=== PATIENT | male | born 1940 | race African-American/Black ===

== ENCOUNTER 2017-12-08 19:13 | Inpatient (IN) | payer MEDICARE, BC ==
[~2017-12-08] VITALS: Ht 170.2 cm; Wt 56.7 kg
[~2017-12-08 19:13] MED LIST: ADVAIR 500-501 EACH INH; SPIRIVA18 MCG INH; ZANAFLEX2 M1 ORAL
[2017-12-08 19:40] VITALS: BP 144/67
--- NOTE | 2017-12-08 19:42 | Emergency Room Report ---
History of Present Illness General Chief Complaint: Dyspnea/Respdistress Source: Patient Present Illness HPI Patient presents with complaints of shortness of breath Patient reports that he has a history of asthma However has not had a flareup in November previously Denies any recent travel he started having a mild cough today General weakness Denies any vomiting or diarrhea Denies any pleurisy Patient had some relief with home medication Allergies: Coded Allergies: IODINE (Unverified Allergy, Unknown, 09/07/15) Patient History Past Medical History: see triage record Pertinent Family History: none Reviewed Nursing Documentation: PMH: Agreed; PSxH: Agreed Nursing Documentation-PMH Past Medical History: No History, Except For Hx Cardiac Problems: No Hx Asthma: Yes - bronchitis Hx COPD: Yes Hx Cancer: No Hx Gastrointestinal Problems: No Hx Neurological Problems: No Review of Systems All Other Systems: negative except mentioned in HPI Physical Exam Vital Signs Date Time Temp Pulse Resp B/P (MAP) Pulse Ox O2 Delivery O2 Flow Rate FiO2 12/08/17 19:17 97.7 106 18 147/70 94 Room Air 97.7 Sp02 EP Interpretation: reviewed, normal General Appearance: mild distress - Mildly short of breath Head: normocephalic, atraumatic Eyes: bilateral eye PERRL, bilateral eye EOMI ENT: hearing grossly normal, normal pharynx, TMs + canals normal, uvula midline Neck: full range of motion, supple, no meningismus, no bony tend Respiratory: no respiratory distress, no retraction, no accessory muscle use, crackles, wheezing - Bilaterally Cardiovascular #1: normal peripheral pulses, regular rate, rhythm, no edema, no gallop, no JVD, no murmur Gastrointestinal: normal bowel sounds, non tender, soft, no mass, no organomegaly, non-distended, no guarding, no hernia, no pulsatile mass, no rebound Genitourinary: no CVA tenderness Musculoskeletal: normal inspection Neurologic: oriented x3, responsive, hardwood sawyer III-XII nml as tested, motor strength/ tone normal, sensory intact Psychiatric: mood/affect normal Skin: normal color, no rash, warm/dry, palpation normal Lymphatic: normal inspection, no adenopathy Medical Decision Making Diagnostic Impression: Primary Impression: Dyspnea Additional Impression: COPD (chronic obstructive pulmonary disease) ER Course Patient is a fairly complex patient with multiple differential to consideration including but not limited to cardiac cardiopulmonary and vascular emergencies Patient has done better with breathing treatments X-ray shows some questionable markings bilaterally likely chronic in nature Given the comorbidities and the presentation patient is admitted for further care Labs Test 12/08/17 19:52 White Blood Count 9.0 K/UL (4.8-10.8) Red Blood Count 3.66 M/UL (4.70-6.10) Hemoglobin 11.7 G/DL (14.2-18.0) Hematocrit 33.8 % (42.0-52.0) Mean Corpuscular Volume 92 FL (80-99) Mean Corpuscular Hemoglobin 32.0 PG (27.0-31.0) Mean Corpuscular Hemoglobin Concent 34.6 G/DL (32.0-36.0) Red Cell Distribution Width 12.6 % (11.6-14.8) Platelet Count 237 K/UL (150-450) Mean Platelet Volume 6.5 FL (6.5-10.1) Neutrophils (%) (Auto) 66.7 % (45.0-75.0) Lymphocytes (%) (Auto) 25.8 % (20.0-45.0) Monocytes (%) (Auto) 3.6 % (1.0-10.0) Eosinophils (%) (Auto) 2.7 % (0.0-3.0) Basophils (%) (Auto) 1.2 % (0.0-2.0) EKG Diagnostic Results Rate: normal Rhythm: NSR ST Segments: no acute changes Rhythm Strip Diag. Results EP Interpretation: yes Rate: 67 Rhythm: NSR, no PVC's, no ectopy Chest X-Ray Diagnostic Results Chest X-Ray Diagnostic Results : Chest X-Ray Ordered: Yes # of Views/Limited/Complete: 1 View Indication: Shortness of Breath EP Interpretation: Yes Interpretation: no consolidation, no effusion, other - Bilateral increased markings mild perihilar fullness Impression: Other - Nonspecific bilateral markings Electronically Signed by: Ana August DO Last Vital Signs Date Time Temp Pulse Resp B/P (MAP) Pulse Ox O2 Delivery O2 Flow Rate FiO2 12/08/17 19:17 97.7 106 18 147/70 94 Room Air 97.7 Status: improved Disposition: ADMITTED INPATIENT Condition: Serious Ana August DO Dec 08, 2017 19:42
[2017-12-08] MEDS ORDERED: Ipratropium 0.02% Inh Soln 2.5ml UD HHN ONE (19:45)
[2017-12-08] MEDS ORDERED: Albuterol ud Inhalation HHN ONE (19:45)
[2017-12-08] MEDS ORDERED: Solu-MEDROL 125mg Inj IVP ONE (19:45)
[2017-12-08] MEDS ORDERED: Albuterol ud Inhalation ONE (20:01)
[2017-12-08 20:29] LABS: BASOPHILS % (AUTO) 1.2 % (0.0-2.0); EOSINOPHILS % (AUTO) 2.7 % (0.0-3.0); HEMATOCRIT 33.8 % (42.0-52.0); HEMOGLOBIN 11.7 G/DL (14.2-18.0); LYMPHOCYTES % (AUTO) 25.8 % (20.0-45.0); MEAN CORPUSCULAR VOLUME 92 FL (80-99); MONOCYTES % (AUTO) 3.6 % (1.0-10.0); NEUTROPHILS % (AUTO) 66.7 % (45.0-75.0); PLATELET COUNT 237 K/UL (150-450); RED BLOOD COUNT 3.66 M/UL (4.70-6.10); RED CELL DISTRIBUTION WIDTH 12.6 % (11.6-14.8)
[2017-12-08 20:43] LABS: ANION GAP 11 mmol/L (5-15); BLOOD UREA NITROGEN 20 mg/dL (7-18); CALCIUM 8.9 MG/DL (8.5-10.1); CARBON DIOXIDE 26 MMOL/L (21-32); CHLORIDE 106 MMOL/L (98-107); CREATININE 1.5 MG/DL (0.55-1.30); POTASSIUM 3.4 MMOL/L (3.5-5.1); SODIUM 142 MMOL/L (136-145)
[2017-12-08 20:57] LABS: ALANINE AMINOTRANSFERASE 25 U/L (12-78); ALBUMIN 3.7 G/DL (3.4-5.0); ALBUMIN/GLOBULIN RATIO 1.1 (1.0-2.7); ALKALINE PHOSPHATASE 71 U/L (46-116); ASPARTATE AMINO TRANSFERASE 20 U/L (15-37); BILIRUBIN,TOTAL 0.1 MG/DL (0.2-1.0); CKMB 6.1 NG/ML (0.0-3.6); CREATINE KINASE 500 U/L (26-308)
[2017-12-08] MEDS ORDERED: PROAIR HFA8.5 GM INH (20:59)
[2017-12-08] MEDS ORDERED: ALBUTEROL2.5 MG/3 M INH (20:59)
[2017-12-08] MEDS ORDERED: IPRATROPIU0.2 MG/1 M HHN (20:59)
[2017-12-08] MEDS ORDERED: MONTELUKAST SOD10 MG ORAL (20:59)
[2017-12-08] MEDS ORDERED: IPRAT-ALBUT 0.5-3 ML IH (20:59)
[2017-12-08] MEDS ORDERED: Morphine Sulfate 2mg/ml Inj IVP PRN (21:30)
[2017-12-08] MEDS ORDERED: LORazepam Inj 2mg/ml 1ml IV PRN (21:30)
[2017-12-08] MEDS ORDERED: Promethazine/Codeine 5ml UD ORAL PRN (21:30)
[2017-12-08] MEDS ORDERED: Ketorolac 30mg Inj IV PRN (21:30)
[2017-12-08] MEDS ORDERED: Nitroglycerin Subl 0.4mg tab SL PRN (21:30)
[2017-12-08] MEDS ORDERED: Piperacillin/Tazobactam 2.25 GM in D5W 55 ML IV SCH (22:00)
[2017-12-09] VITALS: BP 137/72
[2017-12-09] MEDS: Heparin 5000 units/ml inj SUBQ SCH ×3 (00:16→20:57)
[2017-12-09] MEDS: Theophylline ER 100mg ORAL SCH ×3 (00:16→20:56)
[2017-12-09] MEDS ORDERED: Influenza Vaccine Quadrivalent 0.5ml IM ONE (01:15)
[2017-12-09] MEDS ORDERED: Pneumococcal Vaccine 25mcg/0.5ml IM ONE (01:15)
[2017-12-09] MEDS: Solu-MEDROL 125mg Inj IV SCH ×4 (02:31→20:00)
[2017-12-09 04:00] VITALS: BP 145/62
[2017-12-09] MEDS: Zoysn 3.37gm in NS 100ML IVPB SCH ×3 (05:25→21:02)
[2017-12-09 08:00] VITALS: BP 118/67
--- NOTE | 2017-12-09 10:14 | Diagnostic Imaging Report ---
Indication: Dyspnea Comparison: 09/21/2015 A single view chest radiograph was obtained. Findings: No definite infiltrate or pulmonary vascular congestion identified. The heart is normal in size. The lungs are hyperexpanded.. The aorta is mildly enlarged consistent with atherosclerotic vascular disease. The bones are osteopenic. Impression: No acute disease. COPD suspected
--- NOTE | 2017-12-09 11:50 | Consultation ---
History of Present Illness General Date patient seen: Dec 09, 2017 Chief Complaint: Dyspnea/Respdistress Present Illness HPI 77 year old male with hx of Emphysema, asthma, CAd, presented to ER by paramedics with complaints of shortness of breath, happened after using some bleach for cleaning up. He has hx of smoking and still smokes 3-4 cigarette a day. Doesn't have any Phlegm or chest pain. Allergies: Coded Allergies: IODINE (Unverified Allergy, Unknown, 09/07/15) Medication History Scheduled Albuterol Sulfate* (Proair Hfa*), 2 PUFFS INH Q6H, (Reported) Fluticasone/Salmeterol (Advair 500-50 Diskus), 1 PUFF INH BID, (Reported) Montelukast Sodium* (Montelukast Sodium*), 10 MG ORAL DAILY, (Reported) Scheduled PRN Albuterol Sulfate* (Albuterol Sulfate Hhn*), 3 ML INH Q4H PRN for Shortness of Breath, (Reported) Ipratropium [place] 0.5MG/2.5ML (Ipratropium [place] 0.5MG/2.5ML), 0.5 MG HHN Q6H PRN for Shortness of Breath, (Reported) Ipratropium/Albuterol Sulfate (Iprat-Albut 0.5-3(2.5) Mg/3 Ml), 3 ML IH Q6HR PRN for Shortness of Breath, (Reported) Discontinued Medications Tiotropium [place]* (Spiriva*), 1 PUFF INH DAILY, (Reported) Discontinued Reason: discontinued med Tizanidine Hcl (Zanaflex), 2 MG ORAL Q8HR PRN Discontinued Reason: MD discontinued med Patient History Healthcare decision maker Resuscitation status Full Code Advanced Directive on File Past Medical/Surgical History Past Medical/Surgical History: (1) COPD (chronic obstructive pulmonary disease) (2) History of smoking (3) Pulmonary nodule Review of Systems Respiratory: Reports: shortness of breath, wheezing All Other Systems: negative except mentioned in HPI Physical Exam General Appearance: WD/WN, no apparent distress Lines, tubes and drains: peripheral HEENT: normocephalic, atraumatic Neck: non-tender, normal alignment Respiratory/Chest: chest wall non-tender, lungs clear Cardiovascular/Chest: normal peripheral pulses, normal rate Abdomen: normal bowel sounds, non tender Genitourinary/Rectal: normal genital exam, normal rectal exam Extremities: normal range of motion, non-tender, normal capillary refill Skin Exam: normal pigmentation Neurologic: marina porter II-XII grossly normal Last 24 Hour Vital Signs Date Time Temp Pulse Resp B/P (MAP) Pulse Ox O2 Delivery O2 Flow Rate FiO2 12/09/17 09:00 Room Air 12/09/17 08:00 92 12/09/17 08:00 97.6 92 18 118/67 (84) 98 97.6 12/09/17 04:00 97.6 83 17 145/62 (89) 95 97.6 12/09/17 04:00 88 12/09/17 01:10 98.0 88 130/60 12/09/17 01:05 Room Air 12/09/17 00:00 97.7 93 16 137/72 (93) 96 97.7 12/09/17 00:00 93 12/08/17 20:39 92 22 99 Room Air 21 12/08/17 20:18 88 18 98 Room Air 21 12/08/17 20:17 88 18 Room Air 21 12/08/17 19:40 98 16 Room Air 98 12/08/17 19:40 98.2 98 16 144/67 98 Room Air 98.2 12/08/17 19:17 97.7 106 18 147/70 94 Room Air 97.7 Intake and Output 12/08/17 12/09/17 19:00 07:00 Intake Total 100 ml Balance 100 ml Intake Oral 100 ml Laboratory Tests Test 12/08/17 19:52 White Blood Count 9.0 K/UL (4.8-10.8) Red Blood Count 3.66 M/UL (4.70-6.10) L Hemoglobin 11.7 G/DL (14.2-18.0) L Hematocrit 33.8 % (42.0-52.0) L Mean Corpuscular Volume 92 FL (80-99) Mean Corpuscular Hemoglobin 32.0 PG (27.0-31.0) H Mean Corpuscular Hemoglobin Concent 34.6 G/DL (32.0-36.0) Red Cell Distribution Width 12.6 % (11.6-14.8) Platelet Count 237 K/UL (150-450) Mean Platelet Volume 6.5 FL (6.5-10.1) Neutrophils (%) (Auto) 66.7 % (45.0-75.0) Lymphocytes (%) (Auto) 25.8 % (20.0-45.0) Monocytes (%) (Auto) 3.6 % (1.0-10.0) Eosinophils (%) (Auto) 2.7 % (0.0-3.0) Basophils (%) (Auto) 1.2 % (0.0-2.0) Sodium Level 142 MMOL/L (136-145) Potassium Level 3.4 MMOL/L (3.5-5.1) L Chloride Level 106 MMOL/L (98-107) Carbon Dioxide Level 26 MMOL/L (21-32) Anion Gap 11 mmol/L (5-15) Blood Urea Nitrogen 20 mg/dL (7-18) H Creatinine 1.5 MG/DL (0.55-1.30) H Estimat Glomerular Filtration Rate mL/min (>60) Glucose Level 135 MG/DL (74-106) H Calcium Level 8.9 MG/DL (8.5-10.1) Total Bilirubin 0.1 MG/DL (0.2-1.0) L Aspartate Amino Transf (AST/SGOT) 20 U/L (15-37) Alanine Aminotransferase (ALT/SGPT) 25 U/L (12-78) Alkaline Phosphatase 71 U/L (46-116) Total Creatine Kinase 500 U/L (26-308) H Creatine Kinase MB 6.1 NG/ML (0.0-3.6) H Creatine Kinase MB Relative Index 1.2 Troponin I 0.000 ng/mL (0.000-0.056) Pro-B-Type Natriuretic Peptide 93 pg/mL (0-125) Total Protein 7.1 G/DL (6.4-8.2) Albumin 3.7 G/DL (3.4-5.0) Globulin 3.4 g/dL Albumin/Globulin Ratio 1.1 (1.0-2.7) Lipase 175 U/L (73-393) Height (Feet): 5 Height (Inches): 7.00 Weight (Pounds): 125 Medications Current Medications Medications (Trade) Dose Ordered Sig/Gregory Route PRN Reason Start Time Stop Time Status Last Admin Dose Admin Albuterol/ Ipratropium (Albuterol/ Ipratropium) 3 ml EVERY 4 HOURS PRN HHN dyspnea 12/08/17 21:30 12/13/17 21:29 Dextrose (Dextrose 50%) 25 ml Q30M PRN IV Hypoglycemia 12/08/17 21:30 01/07/18 21:29 Dextrose (Dextrose 50%) 50 ml Q30M PRN IV Hypoglycemia 12/08/17 21:30 01/07/18 21:29 Heparin Sodium (Porcine) (Heparin 5000 units/ml) 5,000 units EVERY 12 HOURS SUBQ 12/08/17 22:15 01/07/18 22:14 12/09/17 08:01 Lorazepam (Ativan 2mg/ml 1ml) 0.5 mg Q4H PRN IV For Anxiety 12/08/17 21:30 12/15/17 21:29 Methylprednisolone Sodium Succinate (Solu-MEDROL) 60 mg Q6H IV 12/09/17 02:00 01/08/18 01:59 12/09/17 07:53 Nitroglycerin (Ntg) 0.4 mg Q5M X 3 DOSES PRN SL Prn Chest Pain 12/08/17 21:30 01/07/18 21:29 Ondansetron HCl (Zofran) 4 mg Q6H PRN IVP Nausea & Vomiting 12/08/17 21:30 01/07/18 21:29 Piperacillin Sod/ Tazobactam Sod 3.375 gm/Sodium Chloride 110 ml @ 27.5 mls/hr EVERY 8 HOURS IVPB 12/08/17 22:30 12/13/17 22:29 12/09/17 05:25 Potassium Chloride (K-Dur) 40 meq ONCE ORAL 12/09/17 11:42 12/09/17 12:42 Promethazine HCl/ Codeine (Phenergan with Codeine) 5 ml Q6H PRN ORAL cough 12/08/17 21:30 01/07/18 21:29 Temazepam (Restoril) 15 mg HSPRN PRN ORAL Insomnia 12/08/17 21:30 12/15/17 21:29 12/09/17 00:17 Theophylline (Luis-Dur) 100 mg EVERY 12 HOURS ORAL 12/08/17 22:30 01/07/18 22:29 12/09/17 07:59 Assessment/Plan Problem List: (1) COPD with acute exacerbation ICD Codes: J44.1 - Chronic obstructive pulmonary disease with (acute) exacerbation SNOMED: 195961467 (2) History of smoking ICD Codes: Z87.891 - Personal history of nicotine dependence SNOMED: 80184964674654089 (3) Pulmonary nodule ICD Codes: R91.1 - Solitary pulmonary nodule SNOMED: 530018254 (4) Allergy to iodine ICD Codes: Z88.8 - Allergy status to other drugs, medicaments and biological substances status SNOMED: 276695917 Assessment/Plan respiratory treatment check sputum short course of steroids CT of chest to f/u on previously seen pulmonary nodule titrate fio2 to sat of 92% dvt prophylaxis. Antitussives. symptomatic treatment. Nirali Sands MD Dec 09, 2017 11:50
[2017-12-09 12:00] VITALS: BP 119/68
[2017-12-09 12:35] LABS: APPEARANCE,URINE CLEAR; BILIRUBIN, URINE NEGATIVE (NEGATIVE); COLOR,URINE PALE YELLOW; GLUCOSE, URINE (UA) 1+ (NEGATIVE); KETONES,URINE NEGATIVE (NEGATIVE); LEUKOCYTE ESTERASE ,URINE NEGATIVE (NEGATIVE); NITRITE,URINE NEGATIVE (NEGATIVE); PH,URINE 5 (4.5-8.0); PROTEIN,URINE NEGATIVE (NEGATIVE); UROBILINOGEN,URINE NORMAL MG/DL (0.0-1.0)
[2017-12-09 12:55] LABS: CREATINE KINASE 443 U/L (26-308)
[2017-12-09 16:00] VITALS: BP 117/74
[2017-12-09] MEDS: Albuterol/Ipratropium 3ml neb HHN PRN ×2 (17:46→21:39)
--- NOTE | 2017-12-09 19:01 | History & Physical ---
History and Physical History & Physicial Dictated for Int Med-Dr Silva no. [id number]. Blake Collier MD Dec 09, 2017 19:01
[2017-12-09 20:00] VITALS: BP 121/63
--- NOTE | 2017-12-09 22:18 | Consultation ---
History of Present Illness General Date patient seen: Dec 09, 2017 Chief Complaint: Dyspnea/Respdistress Present Illness HPI the pt is a 77 yo male with hx of mmp, smoking, anxiety, asthma and cad. the pt pw anxiety, fatigue, shortness of breath and insomnia. the pt has low grade depression. the pt has no si/hi. Allergies: Coded Allergies: IODINE (Unverified Allergy, Unknown, 09/07/15) Medication History Scheduled Albuterol Sulfate* (Proair Hfa*), 2 PUFFS INH Q6H, (Reported) Fluticasone/Salmeterol (Advair 500-50 Diskus), 1 PUFF INH BID, (Reported) Montelukast Sodium* (Montelukast Sodium*), 10 MG ORAL DAILY, (Reported) Scheduled PRN Albuterol Sulfate* (Albuterol Sulfate Hhn*), 3 ML INH Q4H PRN for Shortness of Breath, (Reported) Ipratropium [place] 0.5MG/2.5ML (Ipratropium [place] 0.5MG/2.5ML), 0.5 MG HHN Q6H PRN for Shortness of Breath, (Reported) Ipratropium/Albuterol Sulfate (Iprat-Albut 0.5-3(2.5) Mg/3 Ml), 3 ML IH Q6HR PRN for Shortness of Breath, (Reported) Discontinued Medications Tiotropium [place]* (Spiriva*), 1 PUFF INH DAILY, (Reported) Discontinued Reason: discontinued med Tizanidine Hcl (Zanaflex), 2 MG ORAL Q8HR PRN Discontinued Reason: MD discontinued med Patient History Limited by: medical condition History Provided By: Patient, Medical Record Healthcare decision maker Resuscitation status Full Code Advanced Directive on File Past Medical/Surgical History Past Medical/Surgical History: (1) COPD with acute exacerbation (2) Allergy to iodine (3) Dizziness (4) Allergic rhinitis (5) Pulmonary nodule (6) History of smoking (7) COPD (chronic obstructive pulmonary disease) Review of Systems Psychiatric: Reports: prior hx, anxiety Physical Exam General Appearance: no apparent distress, alert Neurologic: oriented x 3, responsive, depressed affect Last 24 Hour Vital Signs Date Time Temp Pulse Resp B/P (MAP) Pulse Ox O2 Delivery O2 Flow Rate FiO2 10/15/18 21:50 70 18 100 Room Air 21 12/09/17 21:39 86 18 98 Room Air 21 12/09/17 20:45 85 18 Room Air 21 12/09/17 17:46 80 16 98 Room Air 21 12/09/17 17:46 80 16 98 Room Air 21 12/09/17 16:00 97.5 79 18 117/74 (88) 96 97.5 12/09/17 16:00 67 12/09/17 12:00 84 12/09/17 12:00 97.8 83 18 119/68 (85) 96 97.8 12/09/17 09:00 Room Air 12/09/17 08:00 92 12/09/17 08:00 97.6 92 18 118/67 (84) 98 97.6 12/09/17 04:00 97.6 83 17 145/62 (89) 95 97.6 12/09/17 04:00 88 12/09/17 01:10 98.0 88 130/60 12/09/17 01:05 Room Air 12/09/17 00:00 97.7 93 16 137/72 (93) 96 97.7 12/09/17 00:00 93 Intake and Output 12/08/17 12/09/17 19:00 07:00 Intake Total 100 ml Balance 100 ml Intake Oral 100 ml Laboratory Tests Test 12/09/17 11:22 12/09/17 12:20 Urine Color Pale yellow Urine Appearance Clear Urine pH 5 (4.5-8.0) Urine Specific [place] 1.010 (1.005-1.035) Urine Protein Negative (NEGATIVE) Urine Glucose (UA) 1+ (NEGATIVE) H Urine Ketones Negative (NEGATIVE) Urine Blood 2+ (NEGATIVE) H Urine Nitrite Negative (NEGATIVE) Urine Bilirubin Negative (NEGATIVE) Urine Urobilinogen Normal MG/DL (0.0-1.0) Urine Leukocyte Esterase Negative (NEGATIVE) Urine RBC 2-4 /HPF (0 - 0) H Urine WBC 0 /HPF (0 - 0) Urine Squamous Epithelial Cells Occasional /LPF Urine Bacteria Occasional /HPF (NONE) Urine Eosinophils None seen (NONE SEEN) Urine Random Sodium 125 mmol/L (20-110) H Urine Potassium Timed 86 mmol/L (12-62) H Uric Acid 3.9 MG/DL (2.6-7.2) Total Creatine Kinase 443 U/L (26-308) H Microbiology Date/Time Source Procedure Growth Status 12/09/17 15:10 Nasal Nares Influenza Types A,B Antigen (BRENT) - Final Complete Height (Feet): 5 Height (Inches): 7.00 Weight (Pounds): 125 Medications Current Medications Medications (Trade) Dose Ordered Sig/Gregory Route PRN Reason Start Time Stop Time Status Last Admin Dose Admin Albuterol/ Ipratropium (Albuterol/ Ipratropium) 3 ml EVERY 4 HOURS PRN HHN dyspnea 12/08/17 21:30 12/13/17 21:29 12/09/17 21:39 Dextrose (Dextrose 50%) 25 ml Q30M PRN IV Hypoglycemia 12/08/17 21:30 01/07/18 21:29 Dextrose (Dextrose 50%) 50 ml Q30M PRN IV Hypoglycemia 12/08/17 21:30 01/07/18 21:29 Heparin Sodium (Porcine) (Heparin 5000 units/ml) 5,000 units EVERY 12 HOURS SUBQ 12/08/17 22:15 01/07/18 22:14 12/09/17 20:57 Lorazepam (Ativan 2mg/ml 1ml) 0.5 mg Q4H PRN IV For Anxiety 12/08/17 21:30 12/15/17 21:29 Methylprednisolone Sodium Succinate (Solu-MEDROL) 60 mg Q6H IV 12/09/17 02:00 01/08/18 01:59 12/09/17 20:00 Nitroglycerin (Ntg) 0.4 mg Q5M X 3 DOSES PRN SL Prn Chest Pain 12/08/17 21:30 01/07/18 21:29 Ondansetron HCl (Zofran) 4 mg Q6H PRN IVP Nausea & Vomiting 12/08/17 21:30 01/07/18 21:29 Piperacillin Sod/ Tazobactam Sod 3.375 gm/Sodium Chloride 110 ml @ 27.5 mls/hr EVERY 8 HOURS IVPB 12/08/17 22:30 12/13/17 22:29 12/09/17 21:02 Promethazine HCl/ Codeine (Phenergan with Codeine) 5 ml Q6H PRN ORAL cough 12/08/17 21:30 01/07/18 21:29 Temazepam (Restoril) 15 mg HSPRN PRN ORAL Insomnia 12/08/17 21:30 12/15/17 21:29 12/09/17 21:16 Theophylline (Luis-Dur) 100 mg EVERY 12 HOURS ORAL 12/08/17 22:30 01/07/18 22:29 12/09/17 20:56 Assessment/Plan Problem List: (1) Anxiety disorder ICD Codes: F41.9 - Anxiety disorder, unspecified SNOMED: 515102305 Status: stable Assessment/Plan ativan prn provided ro/Brandin Beckford MD Dec 09, 2017 22:18
--- NOTE | 2017-12-09 23:15 | History and Physical Report ---
DATE OF ADMISSION: 12/08/2017 CHIEF COMPLAINT: The patient is a 77-year-old male with history of chronic obstructive pulmonary disease, who presents with chief complaint of shortness of breath. HISTORY OF PRESENT ILLNESS: The patient has a history of chronic obstructive pulmonary disease. 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 The patient was using bleach on Saturday, November the 2017. The patient used bleach again on Saturday. The patient began to experience cough. Cough is productive of yellowish phlegm. The patient denies fevers or chills. The patient became increasingly short of breath. The patient presented to [facility]. The patient is admitted for acute exacerbation of chronic obstructive pulmonary disease. REVIEW OF SYSTEMS: CONSTITUTIONAL: The patient denies weight loss or weight gain. The patient denies fevers or chills. HEENT: The patient denies ear or throat pain. The patient denies headache. CARDIOVASCULAR: The patient denies palpitations or chest pain. CHEST: The patient complains of cough as above. The patient complains of shortness of breath as above. The patient denies wheezes. ABDOMEN: The patient denies nausea, vomiting, diarrhea, or constipation. GENITOURINARY: The patient denies dysuria or increased frequency of urination. NEUROMUSCULAR: The patient denies seizures or generalized weakness. PAST MEDICAL HISTORY: Significant for: 1. Chronic obstructive pulmonary disease. 2. Allergic rhinitis. PAST SURGICAL HISTORY: The patient denies. CURRENT MEDICATIONS: 1. Albuterol 2.5 mg nebulized q.6 h. as needed. 2. ProAir metered-dose inhaler two puffs p.o. q.i.d. as needed. 3. Advair 500/50 one puff p.o. twice daily. 4. Atrovent 0.5 mg nebulized q.6 h. p.r.n. 5. Singulair 10 mg p.o. nightly. ALLERGIES: To iodine and contrast dye. SOCIAL HISTORY: The patient is single and is . The patient admits to tobacco use of one-quarter pack per day. The patient denies alcohol use. PHYSICAL EXAMINATION: VITAL SIGNS: Temperature 97.6, respirations 17, pulse 88, and blood pressure 145/62. GENERAL: The patient is a well-developed and well-nourished male, in no apparent distress. HEENT: Eyes, pupils are equal and responsive to light and accommodation. Extraocular movements are intact. NECK: Supple without lymphadenopathy. CHEST: Few diffuse wheezes at bilateral bases. Otherwise, without wheezes or rales. CARDIOVASCULAR: Regular rate. S1 and S2 normal without murmurs, rubs, or gallops. ABDOMEN: Soft, nontender, and nondistended. Positive bowel sounds. No evidence of hepatosplenomegaly. Currently, no rebound or guarding noted. EXTREMITIES: Negative for clubbing, cyanosis, or edema. RECTAL/GENITAL: Refused. NEUROLOGICAL: Cranial nerves II through XII are grossly intact without focal deficits. Motor strength is 5/5 bilaterally. Deep tendon reflexes are 2+ plantar. DIAGNOSTIC AND LABORATORY DATA: Chest x-ray revealed increased lung volume consistent with chronic obstructive pulmonary disease. WBC 9.2, hemoglobin 11.7, hematocrit 33.8, and platelets . Sodium 142, potassium 3.4, chloride 106, CO2 26, BUN 20, and creatinine 1.5. Glucose 135. BNP normal at 93. Troponin normal at 0.0. ASSESSMENT: This is a 77-year-old male with: 1. Acute exacerbation of chronic obstructive pulmonary disease. 2. Shortness of breath. 3. Allergic rhinitis. TREATMENT: Chronic obstructive pulmonary disease, acute exacerbation. A Pulmonary consultation has been obtained with Dr. Nirali Sands. The patient has been started empirically on intravenous Solu-Medrol. The patient has also been started on Zosyn. We will follow recommendations of Pulmonary. Blake Collier M.D. DR: RD JOB#: [id number] CC:
[2017-12-09] MEDS ORDERED: Nitroglycerin Subl 0.4mg tab SL PRN (23:30)
[2017-12-10] VITALS: BP 119/55
[2017-12-10] MEDS ORDERED: Albuterol/Ipratropium 3ml neb HHN PRN (01:00)
[2017-12-10] MEDS ORDERED: LORazepam Inj 2mg/ml 1ml IV PRN (01:30)
[2017-12-10] MEDS: Solu-MEDROL 125mg Inj IV SCH ×2 (01:37→07:52)
[2017-12-10] MEDS ORDERED: Promethazine/Codeine 5ml UD ORAL PRN (03:30)
[2017-12-10 04:14] VITALS: BP 125/56
[2017-12-10] MEDS ORDERED: Piperacillin/Tazobactam 3.375 GM in NS 110 ML IVPB SCH (06:00)
[2017-12-10 07:23] LABS: HEMOGLOBIN 11.8 G/DL (14.2-18.0); MEAN CORPUSCULAR VOLUME 92 FL (80-99); PLATELET COUNT 243 K/UL (150-450); RED BLOOD COUNT 3.81 M/UL (4.70-6.10); RED CELL DISTRIBUTION WIDTH 13.1 % (11.6-14.8); WHITE BLOOD COUNT 13.6 K/UL (4.8-10.8)
[2017-12-10 07:43] LABS: ANION GAP 10 mmol/L (5-15); BLOOD UREA NITROGEN 25 mg/dL (7-18); CALCIUM 9.1 MG/DL (8.5-10.1); CARBON DIOXIDE 25 MMOL/L (21-32); CHLORIDE 105 MMOL/L (98-107); CREATININE 1.4 MG/DL (0.55-1.30); POTASSIUM 4.5 MMOL/L (3.5-5.1); SODIUM 140 MMOL/L (136-145)
[2017-12-10 08:00] VITALS: BP 120/62
[2017-12-10] MEDS ORDERED: Heparin 5000 units/ml inj SUBQ SCH (09:00)
[2017-12-10] MEDS ORDERED: Theophylline ER 100mg ORAL SCH (09:00)
--- NOTE | 2017-12-10 11:49 | Pulmonology Progress Note ---
Assessment/Plan Problems: (1) COPD with acute exacerbation (2) History of smoking (3) Pulmonary nodule (4) Allergy to iodine Assessment/Plan improving pt wants to go home repeat CT of chest showed only scarring in upper lobes/ d/w dr. Benites close f/u with Dr. Ricardo hernández Subjective ROS Limited/Unobtainable: No Interval Events: pt wants to go home Constitutional: Reports: no symptoms Allergies: Coded Allergies: IODINE (Unverified Allergy, Unknown, 09/07/15) Objective Last 24 Hour Vital Signs Date Time Temp Pulse Resp B/P (MAP) Pulse Ox O2 Delivery O2 Flow Rate FiO2 12/10/17 08:03 91 18 Room Air 21 12/10/17 08:00 98.0 91 20 120/62 (81) 100 98.0 12/10/17 07:39 Room Air 12/10/17 04:14 97.6 81 16 125/56 (79) 98 97.6 12/10/17 00:00 97.7 95 17 119/55 (76) 98 97.7 12/09/17 21:50 70 18 100 Room Air 21 12/09/17 21:39 86 18 98 Room Air 21 12/09/17 21:00 Room Air 12/09/17 20:45 85 18 Room Air 21 12/09/17 20:00 98.5 100 18 121/63 (82) 95 98.5 12/09/17 20:00 91 12/09/17 17:46 80 16 98 Room Air 21 12/09/17 17:46 80 16 98 Room Air 21 12/09/17 16:00 97.5 79 18 117/74 (88) 96 97.5 12/09/17 16:00 67 12/09/17 12:00 84 12/09/17 12:00 97.8 83 18 119/68 (85) 96 97.8 Intake and Output 12/09/17 12/10/17 19:00 07:00 Intake Total 470.0 ml 950.0 ml Output Total 250 ml Balance 220.0 ml 950.0 ml Intake Oral 360 ml 840 ml IV Total 110.0 ml 110.0 ml Output Urine Total 250 ml # Voids 2 3 # Bowel Movements 1 1 General Appearance: WD/WN HEENT: normocephalic, atraumatic Respiratory/Chest: chest wall non-tender, lungs clear Cardiovascular: normal peripheral pulses, normal rate Abdomen: normal bowel sounds, soft, non tender Genitourinary: normal external genitalia Extremities: no cyanosis 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, no motor/sensory deficits Lymphatic: no neck adenopathy Microbiology Date/Time Source Procedure Growth Status 12/09/17 15:10 Nasal Nares Influenza Types A,B Antigen (BRENT) - Final Complete Laboratory Tests 12/09/17 12:20: Uric Acid 3.9, Total Creatine Kinase 443H 12/10/17 06:30: White Blood Count 13.6#H, Red Blood Count 3.81L, Hemoglobin 11.8L, Hematocrit 35.0L, Mean Corpuscular Volume 92, Mean Corpuscular Hemoglobin 31.1H, Mean Corpuscular Hemoglobin Concent 33.8, Red Cell Distribution Width 13.1, Platelet Count 243, Mean Platelet Volume 7.0, Neutrophils (%) (Auto) , Lymphocytes (%) ( Auto) , Monocytes (%) (Auto) , Eosinophils (%) (Auto) , Basophils (%) (Auto) , Differential Total Cells Counted 100, Neutrophils % (Manual) 87H, Lymphocytes % (Manual) 10L, Monocytes % (Manual) 3, Eosinophils % (Manual) 0, Basophils % ( Manual) 0, Band Neutrophils 0, Platelet Estimate Adequate, Platelet Morphology Normal, Red Blood Cell Morphology Normal, Sodium Level 140, Potassium Level 4.5 , Chloride Level 105, Carbon Dioxide Level 25, Anion Gap 10, Blood Urea Nitrogen 25H, Creatinine 1.4H, Estimat Glomerular Filtration Rate , Glucose Level 145H, Calcium Level 9.1 Nirali Sands MD Dec 10, 2017 11:49
--- NOTE | 2017-12-11 08:50 | Cardiology Report ---
APPROVED REPORT EKG Measurement Heart [id number] Normal sinus rhythm Possible Left atrial enlargement Septal infarct, age undetermined Abnormal ECG
--- NOTE | 2017-12-11 13:28 | Discharge Summary ---
Discharge Summary Discharge Summary _ DATE OF ADMISSION: 12/08/2017 DATE OF DISCHARGE: 12/10/2017 REASON FOR ADMISSION: 77 years old male with past medical history of COPD, allergic rhinitis, former smoker, presented with chief complaint of shortness of breath , started after he was cleaning with bleach. Upon evaluation vital signs were stable. Pulse oximetry was stable on room air. Chest x-ray revealed evidence of COPD, but no acute cardiopulmonary pathology. Laboratory workup revealed no leukocytosis, hemoglobin 11.7 , hematocrit 33.8 . Troponin negative ,proBNP 93 . Potassium 3.4. BUN 20 creatinine 1.5. EKG revealed normal sinus rhythm, no acute ischemic changes. Patient admitted with diagnoses of COPD with acute exacerbation. CONSULTANTS: pulmonary Dr. Sands [facility] COURSE: Patient admitted. Supplemental oxygen was on board as needed to keep pulse oximetry above 92%. Pulse oximetry remained stable on room air. Pulmonary toilet with bronchodilator provided around the clock and as needed. Patient started on short course of steroids. Empiric antibiotic provided . Sputum culture was negative. Influenza screen test was negative . Antitussive provided as needed. DVT prophylaxis provided. CT of the chest was done to follow-up on pulmonary nodules, seen on previous imaging. CT of the chest revealed only scarring in the upper lobes. Patient was counseled to continue abstinence from smoking. Patient was counseled on compliance with medication regimen . Electrolytes and renal parameters were closely monitored, electrolytes corrected , namely potassium, nephrotoxic were avoided. Patient was stable for discharge home . FINAL DIAGNOSES: COPD with acute exacerbation Pulmonary nodule History of smoking Allergic rhinitis Allergy to iodine DISCHARGE MEDICATIONS: See Medication Reconciliation list. DISCHARGE INSTRUCTIONS: Patient was discharged home Follow up with primary care provider in one week. I have been assigned to dictate discharge summary for this account. I was not involved in the patient's management. Daisy Martini NP Dec 11, 2017 13:28
== END 2017-12-10 10:18 | disposition home or self-care (01) | DRG 192 ==
LOC: EMR 21:05 → 2E 21:07 → EDBEDREQ 21:24 → 3E 12-09 23:22
DX: J44.1 Chronic obstructive pulmonary disease with (acute) exacerbation (principal); R91.1 Solitary pulmonary nodule; J30.9 Allergic rhinitis, unspecified; Z91.041 Radiographic dye allergy status; Z88.8 Allergy status to other drugs, medicaments and biological substances; I25.10 Atherosclerotic heart disease of native coronary artery without angina pectoris; F41.9 Anxiety disorder, unspecified; Z87.891 Personal history of nicotine dependence
CPT/HCPCS: 36415; 71045; 71250; 80048; 80053; 81001; 82550; 82553; 83690; 83880; 84133; 84300; 84484; 84550; 85007; 85025; 86710; 87070; 87205; 89050; 93005; 94640; 94664; 96374; 99285; J7620; J8499

== ENCOUNTER 2018-09-18 07:22 | Inpatient (IN) | payer MEDICARE, BC ==
[~2018-09-18] VITALS: Ht 172.7 cm; Wt 61.2 kg
[~2018-09-18 07:22] MED LIST changes: +ALBUTEROL2.5 MG/3 M INH; +IPRAT-ALBUT 0.5-3 ML IH; +IPRATROPIU0.2 MG/1 M HHN; +MONTELUKAST SOD10 MG ORAL; +PREDNISONE20 MG ORAL; +PROAIR HFA8.5 GM INH
[2018-09-18 07:37] VITALS: BP 125/57
--- NOTE | 2018-09-18 07:39 | NUR ---
ED Nurse Note: PT FROM HOME CAME IN DUE TO LEFT SIDE ABD PAIN THAT RADIATES TO HIS LEFT LATERAL RIB AREA SINCE SATURDAY. DENIES TRAUMA/INJURY. PT STATE STHE PAIN IS WORSE WHEN HE MOVES OR COUGHS. AAO X4, AMBULATORY WITH NON LABORED BREATHING. VSS.
--- NOTE | 2018-09-18 08:12 | Emergency Room Report ---
History of Present Illness General Chief Complaint: Pain Source: Patient Present Illness HPI 28-year-old male with history of COPD presents with left chest wall and flank pain that started a few days ago, is worse when he moves, he denies shortness of breath, hemoptysis, does report mild cough denies leg pain, recent travel, syncope, abdominal pain, urinary symptoms, vomiting, diarrhea, has tried over- the-counter medications with partial relief, reports its moderate achy pain worse with certain movements. Allergies: Coded Allergies: IODINE (Unverified Allergy, Unknown, 09/07/15) Patient History Past Medical History: see triage record Reviewed Nursing Documentation: PMH: Agreed; PSxH: Agreed Nursing Documentation-PMH Past Medical History: No History, Except For Hx Cardiac Problems: No Hx Hypertension: No Hx Pacemaker: No Hx Asthma: Yes Hx COPD: Yes Hx Diabetes: No Hx Cancer: No Hx Gastrointestinal Problems: No Hx Dialysis: No History Of Psychiatric Problem: No Hx Neurological Problems: No Hx Cerebrovascular Accident: No Hx Seizures: No Review of Systems All Other Systems: negative except mentioned in HPI Physical Exam Vital Signs Date Time Temp Pulse Resp B/P (MAP) Pulse Ox O2 Delivery O2 Flow Rate FiO2 09/18/18 07:35 98.2 83 16 120/60 (80) 95 Room Air Sp02 EP Interpretation: reviewed, normal General Appearance: no apparent distress, alert, non-toxic Head: normocephalic Eyes: bilateral eye normal inspection, bilateral eye PERRL, bilateral eye EOMI ENT: normal ENT inspection, hearing grossly normal, normal pharynx, no angioedema, normal voice, moist mucus membranes Neck: normal inspection, full range of motion, supple, supple/symm/no masses Respiratory: chest non-tender, lungs clear, normal breath sounds, chest symmetrical, palpation of chest normal Cardiovascular #1: normal peripheral pulses, regular rate, rhythm Cardiovascular #2: 2+ radial (R), 2+ radial (L) Gastrointestinal: normal inspection, non tender, soft, no mass, no guarding, no rebound Rectal: deferred Genitourinary: normal inspection, no CVA tenderness Musculoskeletal: back normal, gait/station normal, normal range of motion, non- tender, no calf tenderness, Sher's Sign negative Neurologic: alert, responsive, 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 as tested, motor strength/tone normal, sensory intact, speech normal Psychiatric: judgement/insight normal, memory normal, mood/affect normal Lymphatic: no adenopathy Medical Decision Making Diagnostic Impression: Primary Impression: Chest pain ER Course Patient's troponin is 0.17, this is the indeterminate range, not indicative of [place] but not normal, his creatinine is elevated at 1.4 as well, chest x-ray unremarkable, EKG unremarkable, I have low suspicion for dissection or pulmonary embolism, and will admit patient after giving him aspirin, diagnosis of chest pain, will need admission for further evaluation and without [place] with trending troponins, echo, possible stress test. Patient given asa. EKG Diagnostic Results EKG Time: 07:28 EP Interpretation: 77 Rate: normal Rhythm: NSR ST Segments: no acute changes Rhythm Strip Diag. Results Rhythm Strip Time: 08:12 EP Interpretation: yes Rate: 77 Rhythm: NSR, no PVC's, no ectopy Chest X-Ray Diagnostic Results Chest X-Ray Diagnostic Results : Chest X-Ray Ordered: Yes # of Views/Limited/Complete: 2 View Indication: Chest Pain EP Interpretation: Yes Interpretation: no consolidation, no effusion, no pneumothorax, no acute cardiopulmonary disease Impression: No acute disease Electronically Signed by: Philippe Duvall MD CT/MRI/US Diagnostic Results CT/MRI/US Diagnostic Results : Imaging Test Ordered: ct abd/pelvis Impression L inguinal hernia, no obstruction Last Vital Signs Date Time Temp Pulse Resp B/P (MAP) Pulse Ox O2 Delivery O2 Flow Rate FiO2 09/18/18 07:37 97.0 73 20 125/57 100 Room Air Disposition: ADMITTED INPATIENT Condition: Stable PHILIPPE DUVALL M.D Sep 18, 2018 08:12
[2018-09-18] MEDS ORDERED: Cyclobenzaprine 10mg Tab ORAL ONE (08:15)
--- NOTE | 2018-09-18 08:20 | NUR ---
ED Nurse Note: COLLECTED BLOOD/URINE THEN SENT.
[2018-09-18 08:37] LABS: APPEARANCE,URINE CLEAR; BILIRUBIN, URINE NEGATIVE (NEGATIVE); COLOR,URINE PALE YELLOW; GLUCOSE, URINE (UA) NEGATIVE (NEGATIVE); KETONES,URINE NEGATIVE (NEGATIVE); LEUKOCYTE ESTERASE ,URINE NEGATIVE (NEGATIVE); NITRITE,URINE NEGATIVE (NEGATIVE); PH,URINE 5 (4.5-8.0); PROTEIN,URINE 2+ (NEGATIVE); UROBILINOGEN,URINE NORMAL MG/DL (0.0-1.0)
[2018-09-18 08:40] LABS: BASOPHILS % (AUTO) 1.5 % (0.0-2.0); EOSINOPHILS % (AUTO) 2.7 % (0.0-3.0); HEMATOCRIT 36.5 % (42.0-52.0); HEMOGLOBIN 12.1 G/DL (14.2-18.0); LYMPHOCYTES % (AUTO) 21.8 % (20.0-45.0); MEAN CORPUSCULAR VOLUME 95 FL (80-99); MONOCYTES % (AUTO) 5.6 % (1.0-10.0); NEUTROPHILS % (AUTO) 68.4 % (45.0-75.0); PLATELET COUNT 269 K/UL (150-450); RED BLOOD COUNT 3.84 M/UL (4.70-6.10); RED CELL DISTRIBUTION WIDTH 13.3 % (11.6-14.8); WHITE BLOOD COUNT 7.2 K/UL (4.8-10.8)
[2018-09-18 08:46] LABS: ANION GAP 10 mmol/L (5-15); BLOOD UREA NITROGEN 12 mg/dL (7-18); CALCIUM 9.4 MG/DL (8.5-10.1); CARBON DIOXIDE 27 MMOL/L (21-32); CHLORIDE 110 MMOL/L (98-107); CREATININE 1.4 MG/DL (0.55-1.30); POTASSIUM 3.8 MMOL/L (3.5-5.1); SODIUM 147 MMOL/L (136-145)
--- NOTE | 2018-09-18 08:49 | NUR ---
ED Nurse Note: PT TAKEN DOWN FOR CXR.
[2018-09-18 08:50] LABS: ALANINE AMINOTRANSFERASE 28 U/L (12-78); ALBUMIN 3.7 G/DL (3.4-5.0); ALBUMIN/GLOBULIN RATIO 1.1 (1.0-2.7); ALKALINE PHOSPHATASE 53 U/L (46-116); ASPARTATE AMINO TRANSFERASE 20 U/L (15-37); BILIRUBIN,TOTAL 0.6 MG/DL (0.2-1.0)
[2018-09-18] MEDS ORDERED: Aspirin Baby 81mg ORAL ONE (09:15)
--- NOTE | 2018-09-18 09:20 | NUR ---
ED Nurse Note: PT CAME BACK FROM CT. VSS.
[2018-09-18 09:30] VITALS: BP 132/60
--- NOTE | 2018-09-18 10:16 | NUR ---
ED Nurse Note: TIRED TO CALL FOR REPORT. RECEIVING RN DELILAH NOT AVAILABLE AT THIS TIME.
--- NOTE | 2018-09-18 10:34 | NUR ---
ED Nurse Note: REPORT GIVEN TO DELILAH FAGAN OF TELEMETRY UNIT.
--- NOTE | 2018-09-18 11:10 | NUR ---
TELEMETRY ADMISSION NOTES: Pt arrived to the unit on gurney and pt was able to walk to bed on his own. IV on left AC 20g patent and asymptomatic, pt on room air, Md Pacheco at bedside assessing pat, Pt complains of left side flank pain, belongs signed by patient, pt has a black andriod phone with him, pt Ox4 calm and cooperative, denies pain anywhere else beside his left side flank, pt on room air, pt is able to ambulate steadily to restroom. vitals are BP 122/67 HR 70 O2 96 Temp 97.4
--- NOTE | 2018-09-18 11:13 | Cardiac Electrophysiology PN ---
Subjective Subjective [id number] Objective Last 24 Hour Vital Signs Date Time Temp Pulse Resp B/P (MAP) Pulse Ox O2 Delivery O2 Flow Rate FiO2 09/18/18 10:49 97.7 76 15 141/58 99 Room Air 09/18/18 09:30 97.6 84 16 132/60 98 Room Air 09/18/18 07:37 97.0 73 20 125/57 100 Room Air 09/18/18 07:35 98.2 83 16 120/60 (80) 95 Room Air Laboratory Tests Test 09/18/18 08:10 White Blood Count 7.2 K/UL (4.8-10.8) Red Blood Count 3.84 M/UL (4.70-6.10) L Hemoglobin 12.1 G/DL (14.2-18.0) L Hematocrit 36.5 % (42.0-52.0) L Mean Corpuscular Volume 95 FL (80-99) Mean Corpuscular Hemoglobin 31.5 PG (27.0-31.0) H Mean Corpuscular Hemoglobin Concent 33.1 G/DL (32.0-36.0) Red Cell Distribution Width 13.3 % (11.6-14.8) Platelet Count 269 K/UL (150-450) Mean Platelet Volume 6.4 FL (6.5-10.1) L Neutrophils (%) (Auto) 68.4 % (45.0-75.0) Lymphocytes (%) (Auto) 21.8 % (20.0-45.0) Monocytes (%) (Auto) 5.6 % (1.0-10.0) Eosinophils (%) (Auto) 2.7 % (0.0-3.0) Basophils (%) (Auto) 1.5 % (0.0-2.0) Urine Color Pale yellow Urine Appearance Clear Urine pH 5 (4.5-8.0) Urine Specific [place] 1.015 (1.005-1.035) Urine Protein 2+ (NEGATIVE) H Urine Glucose (UA) Negative (NEGATIVE) Urine Ketones Negative (NEGATIVE) Urine Blood 1+ (NEGATIVE) H Urine Nitrite Negative (NEGATIVE) Urine Bilirubin Negative (NEGATIVE) Urine Urobilinogen Normal MG/DL (0.0-1.0) Urine Leukocyte Esterase Negative (NEGATIVE) Urine RBC 2-4 /HPF (0 - 0) H Urine WBC 2-4 /HPF (0 - 0) Urine Squamous Epithelial Cells Moderate /LPF (NONE/OCC) H Urine Bacteria Occasional /HPF (NONE) Sodium Level 147 MMOL/L (136-145) H Potassium Level 3.8 MMOL/L (3.5-5.1) Chloride Level 110 MMOL/L (98-107) H Carbon Dioxide Level 27 MMOL/L (21-32) Anion Gap 10 mmol/L (5-15) Blood Urea Nitrogen 12 mg/dL (7-18) Creatinine 1.4 MG/DL (0.55-1.30) H Estimat Glomerular Filtration Rate mL/min (>60) Glucose Level 108 MG/DL (74-106) H Calcium Level 9.4 MG/DL (8.5-10.1) Total Bilirubin 0.6 MG/DL (0.2-1.0) Aspartate Amino Transf (AST/SGOT) 20 U/L (15-37) Alanine Aminotransferase (ALT/SGPT) 28 U/L (12-78) Alkaline Phosphatase 53 U/L (46-116) Troponin I 0.017 ng/mL (0.000-0.056) Total Protein 7.2 G/DL (6.4-8.2) Albumin 3.7 G/DL (3.4-5.0) Globulin 3.5 g/dL Albumin/Globulin Ratio 1.1 (1.0-2.7) Lipase 76 U/L (73-393) Michael Pacheco MD Sep 18, 2018 11:13
[2018-09-18] MEDS ORDERED: Albuterol/Ipratropium 3ml neb HHN PRN ×2 (11:15)
[2018-09-18] MEDS ORDERED: Lexiscan 0.4mg/5ml syringe IV PRN (11:15)
[2018-09-18] MEDS ORDERED: Nitroglycerin Subl 0.4mg tab SL PRN (11:15)
[2018-09-18] MEDS ORDERED: Enalaprilat 1.25mg/ml Inj IV PRN (11:15)
[2018-09-18] MEDS ORDERED: dilTIAZem HCl 25mg/5ml Inj IV PRN (11:15)
[2018-09-18] MEDS ORDERED: Miralax 17gm pkt ORAL PRN ×2 (11:15→12:45)
--- NOTE | 2018-09-18 11:45 | Consultation ---
History of Present Illness General Chief Complaint: Pain Present Illness HPI 78 year old male with hx of smoking, COPD, presented to ER with CC of Left sided chest, lower flank pain. He remembers falling on that side a few days ago. Allergies: Coded Allergies: IODINE (Unverified Allergy, Unknown, 09/07/15) Medication History Scheduled Albuterol Sulfate* (Proair Hfa*), 2 PUFFS INH Q6H, (Reported) Fluticasone/Salmeterol (Advair 500-50 Diskus), 1 PUFF INH BID, (Reported) Montelukast Sodium* (Montelukast Sodium*), 10 MG ORAL DAILY, (Reported) Prednisone* (Prednisone*), 40 MG ORAL DAILY Tiotropium [place]* (Spiriva*), 1 PUFF INH DAILY, (Reported) Scheduled PRN Albuterol Sulfate* (Albuterol Sulfate Hhn*), 3 ML INH Q4H PRN for Shortness of Breath, (Reported) Ipratropium [place] 0.5MG/2.5ML (Ipratropium [place] 0.5MG/2.5ML), 0.5 MG HHN Q6H PRN for Shortness of Breath, (Reported) Ipratropium/Albuterol Sulfate (Iprat-Albut 0.5-3(2.5) Mg/3 Ml), 3 ML IH Q6HR PRN for Shortness of Breath, (Reported) Patient History Healthcare decision maker Resuscitation status Advanced Directive on File Past Medical/Surgical History Past Medical/Surgical History: (1) COPD (chronic obstructive pulmonary disease) (2) History of smoking (3) Pulmonary nodule Review of Systems All Other Systems: negative except mentioned in HPI Physical Exam General Appearance: thin Lines, tubes and drains: peripheral HEENT: normocephalic, atraumatic Neck: non-tender, normal alignment Respiratory/Chest: chest wall non-tender, lungs clear Breasts: no masses Cardiovascular/Chest: normal rate Abdomen: normal bowel sounds, non tender Genitourinary/Rectal: normal genital exam 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 Last 24 Hour Vital Signs Date Time Temp Pulse Resp B/P (MAP) Pulse Ox O2 Delivery O2 Flow Rate FiO2 09/18/18 11:38 Room Air 09/18/18 10:49 97.7 76 15 141/58 99 Room Air 09/18/18 09:30 97.6 84 16 132/60 98 Room Air 09/18/18 07:37 97.0 73 20 125/57 100 Room Air 09/18/18 07:35 98.2 83 16 120/60 (80) 95 Room Air Laboratory Tests Test 09/18/18 08:10 White Blood Count 7.2 K/UL (4.8-10.8) Red Blood Count 3.84 M/UL (4.70-6.10) L Hemoglobin 12.1 G/DL (14.2-18.0) L Hematocrit 36.5 % (42.0-52.0) L Mean Corpuscular Volume 95 FL (80-99) Mean Corpuscular Hemoglobin 31.5 PG (27.0-31.0) H Mean Corpuscular Hemoglobin Concent 33.1 G/DL (32.0-36.0) Red Cell Distribution Width 13.3 % (11.6-14.8) Platelet Count 269 K/UL (150-450) Mean Platelet Volume 6.4 FL (6.5-10.1) L Neutrophils (%) (Auto) 68.4 % (45.0-75.0) Lymphocytes (%) (Auto) 21.8 % (20.0-45.0) Monocytes (%) (Auto) 5.6 % (1.0-10.0) Eosinophils (%) (Auto) 2.7 % (0.0-3.0) Basophils (%) (Auto) 1.5 % (0.0-2.0) Urine Color Pale yellow Urine Appearance Clear Urine pH 5 (4.5-8.0) Urine Specific [place] 1.015 (1.005-1.035) Urine Protein 2+ (NEGATIVE) H Urine Glucose (UA) Negative (NEGATIVE) Urine Ketones Negative (NEGATIVE) Urine Blood 1+ (NEGATIVE) H Urine Nitrite Negative (NEGATIVE) Urine Bilirubin Negative (NEGATIVE) Urine Urobilinogen Normal MG/DL (0.0-1.0) Urine Leukocyte Esterase Negative (NEGATIVE) Urine RBC 2-4 /HPF (0 - 0) H Urine WBC 2-4 /HPF (0 - 0) Urine Squamous Epithelial Cells Moderate /LPF (NONE/OCC) H Urine Bacteria Occasional /HPF (NONE) Sodium Level 147 MMOL/L (136-145) H Potassium Level 3.8 MMOL/L (3.5-5.1) Chloride Level 110 MMOL/L (98-107) H Carbon Dioxide Level 27 MMOL/L (21-32) Anion Gap 10 mmol/L (5-15) Blood Urea Nitrogen 12 mg/dL (7-18) Creatinine 1.4 MG/DL (0.55-1.30) H Estimat Glomerular Filtration Rate mL/min (>60) Glucose Level 108 MG/DL (74-106) H Calcium Level 9.4 MG/DL (8.5-10.1) Total Bilirubin 0.6 MG/DL (0.2-1.0) Aspartate Amino Transf (AST/SGOT) 20 U/L (15-37) Alanine Aminotransferase (ALT/SGPT) 28 U/L (12-78) Alkaline Phosphatase 53 U/L (46-116) Troponin I 0.017 ng/mL (0.000-0.056) Total Protein 7.2 G/DL (6.4-8.2) Albumin 3.7 G/DL (3.4-5.0) Globulin 3.5 g/dL Albumin/Globulin Ratio 1.1 (1.0-2.7) Lipase 76 U/L (73-393) Height (Feet): 5 Height (Inches): 8.00 Weight (Pounds): 135 Medications Current Medications Medications (Trade) Dose Ordered Sig/Gregory Route PRN Reason Start Time Stop Time Status Last Admin Dose Admin Acetaminophen (Tylenol) 650 mg Q4H PRN ORAL T>100.5 09/18/18 11:15 10/18/18 11:14 Albuterol/ Ipratropium (Albuterol/ Ipratropium) 3 ml Q4H PRN HHN Shortness of Breath 09/18/18 11:15 09/23/18 11:14 Aspirin (ASA) 162 mg DAILY ORAL 09/19/18 09:00 10/19/18 08:59 Diltiazem HCl (Cardizem) 10 mg EVERY HOUR PRN IV heart rate more than 120 bpm 09/18/18 11:15 10/18/18 11:14 Enalaprilat (Vasotec) 2.5 mg Q6H PRN IV sbp more than 160mmHg 09/18/18 11:15 10/18/18 11:14 Heparin Sodium (Porcine) (Heparin 5000 units/ml) 5,000 units EVERY 12 HOURS SUBQ 09/18/18 21:00 10/18/18 20:59 Morphine Sulfate (Morphine Sulfate) 2 mg Q4H PRN IVP severe Pain (Pain Scale 7-10) 09/18/18 11:15 09/25/18 11:14 Nitroglycerin (Ntg) 0.4 mg Q5MIN X 3 DOSES PRN SL Prn Chest Pain 09/18/18 11:15 10/18/18 11:14 Ondansetron HCl (Zofran) 4 mg Q6H PRN IVP Nausea & Vomiting 09/18/18 11:15 10/18/18 11:14 Polyethylene Glycol (Miralax) 17 gm DAILYPRN PRN ORAL Constipation 09/18/18 11:15 10/18/18 11:14 Regadenoson (Lexiscan) 0.4 mg ONCE PRN IV STRESS TEST 09/18/18 11:15 09/19/18 23:59 Temazepam (Restoril) 15 mg HSPRN PRN ORAL Insomnia 09/18/18 21:00 09/25/18 20:59 Assessment/Plan Problem List: (1) ACS (acute coronary syndrome) ICD Codes: I24.9 - Acute ischemic heart disease, unspecified SNOMED: 890916062 (2) COPD (chronic obstructive pulmonary disease) ICD Codes: J44.9 - Chronic obstructive pulmonary disease, unspecified SNOMED: 78128283 (3) History of smoking ICD Codes: Z87.891 - Personal history of nicotine dependence SNOMED: 36329739960828256 Assessment/Plan: serial ekg, troponin echo cariology evaluation symptomatic treatment Nirali Sands MD Sep 18, 2018 11:45
[2018-09-18 12:00] VITALS: BP 144/74
--- NOTE | 2018-09-18 12:44 | Diagnostic Imaging Report ---
Indication: Chest pain Comparison: 12/08/2017 A single view chest radiograph was obtained. Findings: Accounting for differences in technique there is no change. The lungs are slightly hyperexpanded. Heart size is normal. Aorta is ectatic. Bones are osteopenic. Interstitium is mildly prominent which may be a chronic finding. IMPRESSION: No acute disease
--- NOTE | 2018-09-18 12:44 | Diagnostic Imaging Report ---
Indication: Abdominal pain Technique: Continuous helical transaxial imaging of the abdomen and pelvis was obtained from the lung bases to the pubic symphysis. No intravenous contrast was administered. Coronal 2-D reformats were also obtained. Automatic Exposure Control was utilized. Total Dose length Product (DLP): [address] Dose Index Volume (CTDIvol): 0.15, 9.77 mGy Comparison: none Findings: 5 mm nodule demonstrated at the left lung base. Mild reticular densities at the left lung base noted. The right kidney is malrotated. There is no hydronephrosis or nephrolithiasis. There is moderate aortoiliac calcification. Appendix is normal. There is a moderate left inguinal hernia containing mesenteric fat and loops of small bowel. There is a fluid collection within the hernia sac measuring about 3 cm. Correlate clinically for incarceration which is suspected on the basis of the CT. There is no bowel obstruction secondary to the inguinal hernia. The urinary bladder is unremarkable. Noncontrast solid organ evaluation is limited but grossly negative. Gallbladder is unremarkable. There is narrowing of intervertebral discs and accompanying endplate osteophyte formation. Hypertrophied facet joints also demonstrated. IMPRESSION: Moderate-sized left inguinal hernia containing loops of small bowel and a 3 cm fluid collection which may reflect inflammation. Please correlate clinically for consideration. 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 Degenerative changes of the spine. 5 mm nodule at the left lung base. Depending on risk factors, follow-up examination suggested in 6-[address] scanner at [facility] is accredited by the [employer] and the scans are performed using dose optimization techniques as appropriate to a performed exam including Automatic Exposure control.
[2018-09-18] MEDS: Docusate 100mg cap ORAL SCH ×2 (13:47→17:37)
[2018-09-18 16:00] VITALS: BP 111/62
--- NOTE | 2018-09-18 17:34 | History & Physical ---
History and Physical History & Physicial Dictated for Int Med-DR Hoffman no. [id number]. Blake Collier MD Sep 18, 2018 17:34
[2018-09-18] MEDS: Morphine Sulfate 2mg/ml Inj(IV/IM USE ONLY) IVP PRN ×2 (17:38→21:19)
--- NOTE | 2018-09-18 18:24 | Cardiology Report ---
APPROVED REPORT EKG Measurement Heart [id number] Normal sinus rhythm Right atrial enlargement Possible septal infarct, age undetermined Borderline ECG
--- NOTE | 2018-09-18 19:20 | NUR ---
HAND-OFF: Report given to GRACIA Tipton.
--- NOTE | 2018-09-18 19:30 | NUR ---
NURSE NOTES: Pt received from GRACIA Loving alert and oriented x4 currently resting in bed with no acute s/s of distress noted. IV site asymptomatic and patent on L ac 20g, saline lock. Fall precautions implemented - pt educated on fall precautions, pt verbalized understanding. Bed alarm on, Bed in lowest position, call light and belongings within reach.
[2018-09-18 20:00] VITALS: BP 100/60
[2018-09-18] MEDS: Heparin 5000 units/ml inj SUBQ SCH (21:11)
[2018-09-19] VITALS: BP 110/56
--- NOTE | 2018-09-19 01:06 | NUR ---
NURSE NOTES: Pt currently asleep in bed, no acute s/s of distress noted at bedside. Bed alarm on, bed in lowest position. Call light within reach.
--- NOTE | 2018-09-19 01:45 | History and Physical Report ---
DATE OF ADMISSION: 09/18/2018 CHIEF COMPLAINT: The patient is a 78-year-old male, who presents with a chief complaint of chest pain. HISTORY OF PRESENT ILLNESS: The patient has a history of chronic obstructive pulmonary disease. The patient states history of present illness began about 3 days ago. The patient began to experience left chest wall pain. He states it radiates to the back. The patient presented to [place] emergency room. The patient is admitted for chest pain to rule out acute coronary syndrome. REVIEW OF SYSTEMS: CONSTITUTIONAL: The patient denies weight loss or weight gain. The patient denies fever or chills. HEENT: The patient denies ear or throat pain. The patient denies headache. CHEST: The patient denies wheeze or shortness of breath. CARDIOVASCULAR: The patient complains of chest pain as above. The patient denies palpitations. ABDOMEN: The patient denies nausea, vomiting, diarrhea, or constipation. GENITOURINARY: The patient denies dysuria or increased frequency of urination. NEUROMUSCULAR: The patient denies seizures or generalized weakness. PAST MEDICAL HISTORY: Significant for: 1. Chronic obstructive pulmonary disease. 2. Allergic rhinitis. PAST SURGICAL HISTORY: The patient denies. CURRENT MEDICATIONS: 1. Albuterol metered-dose inhaler two puffs p.o. q.i.d. p.r.n. 2. Albuterol 2.5 mg nebulized q.4 hours p.r.n. 3. Advair 500/50 one puff p.o. twice daily. 4. Atrovent 0.5 mg nebulized q.6 hours p.r.n. 5. Singulair 10 mg p.o. daily. 6. Prednisone 20 mg 2 tablets p.o. daily. 7. Spiriva 18 mcg 1 puff p.o. daily. ALLERGIES: Iiodine. SOCIAL HISTORY: The patient is single and is . The patient admits to tobacco use of one-quarter pack daily. The patient denies alcohol use. PHYSICAL EXAMINATION: VITAL SIGNS: Temperature 97, respirations 20, pulse 72, and blood pressure 125/57. GENERALLY: The patient is a well-developed and well-nourished thin-appearing male, in no apparent distress. HEENT: Eyes, pupils are equal and responsive to light and accommodation. Extraocular movements are intact. NECK: Supple without lymphadenopathy. CHEST: Lungs are clear to auscultation bilaterally without wheezes or rales. CARDIOVASCULAR: Regular rhythm and rate. S1 and S2 are normal without murmurs, rubs, or gallops. ABDOMEN: Soft, nontender, and nondistended. Positive bowel sounds. No evidence of hepatosplenomegaly. Currently, no rebound or guarding noted. EXTREMITIES: Negative for clubbing, cyanosis, or edema. RECTAL/GENITAL: Refused. NEUROLOGIC: Cranial nerves II through XII are grossly intact without focal deficits. Motor strength is 5/5 bilaterally. Deep tendon reflexes are 2+ plantar. LABORATORY STUDIES: WBC 7.2, hemoglobin 12.1, hematocrit 36.5, and platelets 269,000. Sodium 147, potassium 3.8, chloride 110, CO2 27, BUN 12, creatinine 1.4, and glucose 108. Troponin 0.017. Urinalysis was reported as 2+ protein and 1+ blood with 2 to 4 rbc's. A chest x-ray was reported as no acute disease. ASSESSMENT: This is a 78-year-old male with chest pain. 1. Chronic obstructive pulmonary disease. 2. Allergic rhinitis. TREATMENT: 1. Chest pain. A Cardiology consultation has been obtained with Dr. Michael Pacheco. Serial troponin levels will be performed. We will follow recommendations of Cardiology. 2. Chronic obstructive pulmonary disease. A Pulmonary consultation has been obtained with Dr. Nirali Sands. We will continue DuoNebs as above. We will follow recommendation of Pulmonary. Blake Collier M.D. DR: DOROTA JOB#: [id number] CC:
--- NOTE | 2018-09-19 03:30 | Consultation ---
DATE OF CONSULTATION: 09/18/2018 CARDIOLOGY CONSULTATION CONSULTING PHYSICIAN: Michael Pacheco M.D. REFERRING PHYSICIAN: Kasi Silva M.D. REASON FOR CONSULTATION: Chest wall pain. HISTORY OF PRESENT ILLNESS: The patient is a 78-year-old gentleman with history of COPD and asthma, presented with left chest and flank pain that started a few days ago, that is getting worse. The patient shortness of breath, syncope, or presyncope. The patient's EKG showed sinus rhythm with right atrial enlargement. Cardiology consultation was obtained for further evaluation. REVIEW OF SYSTEMS: Negative other than what was mentioned in history of present illness. PAST MEDICAL HISTORY: Includes COPD and asthma. FAMILY HISTORY: Noncontributory. SOCIAL HISTORY: He lives at home. Does not smoke or drink alcohol. PHYSICAL EXAMINATION: VITAL SIGNS: Show blood pressure of , pulse 76, respirations 15, and he is afebrile. HEAD AND NECK: Shows no JVD. LUNGS: Clear. CARDIOVASCULAR: Shows regular S1 and S2 with no gallop or murmur. ABDOMEN: Soft. EXTREMITIES: No pitting edema. LABORATORY DATA: Sodium 147, potassium 3.8, BUN 12, creatinine 1.4, glucose 108. White count , hemoglobin 12.0, hematocrit 36.5, and platelets 269. Urinalysis was negative. ASSESSMENT AND PLAN: 1. Left-sided chest and flank pain. Troponin is negative. EKG is nonischemic. The patient does not have high blood pressure or diabetes. We will get an echocardiogram and completely rule out myocardial infarction protocol. Get a stress test for further evaluation. The patient may need a CT of the chest for further evaluation. 2. Chronic obstructive pulmonary disease and asthma, nebulize per Dr. Sands. Thank you very much for allowing me to participate in the care of this patient. Please do not hesitate to contact me for any questions regarding my evaluation. Michael Pacheco M.D. DR: RONN JOB#: [id number] CC:
[2018-09-19 04:00] VITALS: BP 107/54
[2018-09-19 06:43] LABS: BASOPHILS % (AUTO) 1.7 % (0.0-2.0); EOSINOPHILS % (AUTO) 6.1 % (0.0-3.0); HEMATOCRIT 36.6 % (42.0-52.0); HEMOGLOBIN 11.9 G/DL (14.2-18.0); LYMPHOCYTES % (AUTO) 42.6 % (20.0-45.0); MEAN CORPUSCULAR VOLUME 95 FL (80-99); MONOCYTES % (AUTO) 5.5 % (1.0-10.0); NEUTROPHILS % (AUTO) 44.2 % (45.0-75.0); PLATELET COUNT 236 K/UL (150-450); RED BLOOD COUNT 3.85 M/UL (4.70-6.10); RED CELL DISTRIBUTION WIDTH 13.5 % (11.6-14.8)
[2018-09-19 06:54] LABS: INR 0.9 (0.9-1.1)
[2018-09-19] MEDS: Morphine Sulfate 2mg/ml Inj(IV/IM USE ONLY) IVP PRN ×3 (07:01→15:33)
--- NOTE | 2018-09-19 07:05 | NUR ---
NURSE NOTES: Pt received from GRACIA T[place] and is alert and oriented x4. Patient is currently resting in bed with no acute s/s of distress noted. IV site asymptomatic and patent on L ac 20g, saline lock. Fall precautions implemented - pt educated on fall precautions, pt verbalized understanding. Bed alarm on, Bed in lowest position, call light and belongings within reach. Patient stated pain and was documented and medicated. Will follow up plan of care.
[2018-09-19 07:19] LABS: CHOLESTEROL 192 MG/DL (< 200); HDL CHOLESTEROL 72 MG/DL (40-60); TRIGLYCERIDES 57 MG/DL (30-150)
--- NOTE | 2018-09-19 07:26 | NUR ---
HAND-OFF: Report given to GRACIA Zaidi.
[2018-09-19 08:00] VITALS: BP 117/61
[2018-09-19] MEDS ORDERED: Aspirin Baby 81mg ORAL SCH (09:00)
[2018-09-19] MEDS ORDERED: Miralax 17gm pkt ORAL SCH (09:00)
[2018-09-19] MEDS: Docusate 100mg cap ORAL SCH ×3 (10:21→18:12)
[2018-09-19] MEDS: Heparin 5000 units/ml inj SUBQ SCH (10:23)
--- NOTE | 2018-09-19 11:20 | Cardiology Report ---
APPROVED REPORT EXAM: Two-dimensional and M-mode echocardiogram with Doppler and color Doppler. INDICATION Left Ventricular Function M-Mode DIMENSIONS IVSd0.9 (0.7-1.1cm)Left Atrium (MM)3.2 (1.6-4.0cm) LVDd5.0 (3.5-5.6cm)Aortic Root3.2 (2.0-3.7cm) PWd0.8 (0.7-1.1cm)Aortic Cusp Exc.1.7 (1.5-2.0cm) LVDs3.5 (2.5-4.0cm) PWs1.2 cm Normal left ventricular chamber size, systolic function and wall motion. Left ventricular ejection fraction estimated to be 55-60 %. No evidence of left ventricular hypertrophy. No evidence of pericardial effusion. All other cardiac chamber sizes are within normal limits. Focal aortic valve sclerosis with adequate cusp excursion. Thickened mitral valve leaflets with normal excursion. Mitral annulus and aortic root calcification. Pulmonic valve not well visualized. Normal tricuspid valve structure. IVC at normal size with physiologic collapse. A color flow and spectral Doppler study was performed and revealed: No aortic regurgitation. Mild mitral regurgitation. Mitral diastolic velocities suggest reduced left ventricular relaxation c/w mild LV diastolic dysfunction (Grade I). Trace to mild tricuspid regurgitation. Tricuspid systolic velocities suggests peak right ventricular systolic pressure of 33 mmHg. Trace pulmonic regurgitation present.
[2018-09-19 12:00] VITALS: BP 128/63
[2018-09-19] MEDS ORDERED: ACETAMINOPHEN-1 EAC1 ORAL (12:27)
[2018-09-19] MEDS ORDERED: IBUPROFEN600 MG ORAL (12:27)
--- NOTE | 2018-09-19 12:50 | NUR ---
HAND-OFF: Report given to GRACIA Tavarez. Patient pending stress test at about 2pm.
--- NOTE | 2018-09-19 13:37 | Consultation ---
History of Present Illness General Date patient seen: Sep 19, 2018 Reason for Hospitalization: Pain Present Illness HPI This is a very pleasant 78-year-old male with multiple medical comorbidities who presented with left chest wall and flank pain for evaluation. Patient admitted for medical care and management. Had an abdominal CT which identified a left inguinal hernia with bowel loops and fluid collection. Surgery called to evaluate. Patient seen, patient evaluated, chart reviewed. Patient states that he has had this left inguinal hernia since his 40s. He debated surgical repair in his late 40s early 50s but decided not to proceed with repair and has been living with a hernia since. Denies any symptoms from the hernia. No nausea vomiting fever chills. No bowel obstructions. No significant pain. Does identify the mass at times but states it pops and on its own occasionally. Allergies: Coded Allergies: IODINE (Unverified Allergy, Unknown, 09/07/15) Medication History Scheduled Albuterol Sulfate* (Proair Hfa*), 2 PUFFS INH Q6H, (Reported) Fluticasone/Salmeterol (Advair 500-50 Diskus), 1 PUFF INH BID, (Reported) Ibuprofen* (Motrin*), 600 MG ORAL FOUR TIMES A DAY Montelukast Sodium* (Montelukast Sodium*), 10 MG ORAL DAILY, (Reported) Prednisone* (Prednisone*), 40 MG ORAL DAILY Tiotropium [place]* (Spiriva*), 1 PUFF INH DAILY, (Reported) Scheduled PRN Acetaminophen With Codeine (T#3) (Tylenol #3 Tab*), 1 TAB ORAL Q4H PRN Albuterol Sulfate* (Albuterol Sulfate Hhn*), 3 ML INH Q4H PRN for Shortness of Breath, (Reported) Ipratropium [place] 0.5MG/2.5ML (Ipratropium [place] 0.5MG/2.5ML), 0.5 MG HHN Q6H PRN for Shortness of Breath, (Reported) Ipratropium/Albuterol Sulfate (Iprat-Albut 0.5-3(2.5) Mg/3 Ml), 3 ML IH Q6HR PRN for Shortness of Breath, (Reported) Patient History History Provided By: Patient, Medical Record, PMD Healthcare decision maker Resuscitation status Advanced Directive on File Past Medical/Surgical History Past Medical/Surgical History: (1) ACS (acute coronary syndrome) (2) Allergic rhinitis (3) Pulmonary nodule (4) History of smoking (5) COPD (chronic obstructive pulmonary disease) (6) Allergy to iodine (7) COPD with acute exacerbation Review of Systems Review of Symptoms General ROS: no weight loss or fever Psychological ROS: no depression or mood changes, no memory loss Ophthalmic ROS: no visual changes or eye irritation ENT ROS: no nasal congestion, hearing loss, dizziness Allergy and Immunology ROS: no allergic symptoms or urticaria Hematological and Lymphatic ROS: no swollen glands, unusual bleeding or bruising Endocrine ROS: no polyuria, polydipsia, weight changes, temperature intolerance Respiratory ROS: no cough, shortness of breath, or wheezing Cardiovascular ROS: no chest pain or dyspnea on exertion Gastrointestinal ROS: denies abdominal pain, no bright red blood in stool. Musculoskeletal ROS: no myalgias or arthralgias Neurological ROS: no TIA or stroke symptoms Dermatological ROS: no new or changing skin lesions, rashes or pruritis Physical Exam Physical Exam General appearance: alert, cooperative, no distress, appears stated age Head: Normocephalic, without obvious abnormality, atraumatic Eyes: conjunctivae/corneas clear. PERRL, EOM's intact. Fundi benign Throat: Lips, mucosa, and tongue normal. Teeth and gums normal Neck: supple, symmetrical, trachea midline, no adenopathy, thyroid: not enlarged, symmetric, no tenderness/mass/nodules, no carotid bruit and no JVD Lungs: clear to auscultation bilaterally Heart: regular rate and rhythm, S1, S2 normal, no murmur, click, rub or gallop Abdomen: soft, non-tender. Bowel sounds normal. No masses, no organomegaly; left inguinal hernia reducible Extremities: extremities normal, atraumatic, no cyanosis or edema Pulses: 2+ and symmetric Skin: Skin color, texture, turgor normal. No rashes or lesions Neurologic: Grossly normal Last 24 Hour Vital Signs Date Time Temp Pulse Resp B/P (MAP) Pulse Ox O2 Delivery O2 Flow Rate FiO2 09/19/18 12:00 98.3 62 20 128/63 (84) 96 09/19/18 11:50 98.3 09/19/18 11:35 60 09/19/18 09:00 Room Air 09/19/18 08:00 97.6 54 18 117/61 (79) 97 09/19/18 07:55 53 09/19/18 07:30 63 15 94 Room Air 21 09/19/18 04:00 59 09/19/18 04:00 97.7 56 18 107/54 (71) 97 09/19/18 00:27 65 20 97 Room Air 21 09/19/18 00:00 97.8 63 18 110/56 (74) 97 09/19/18 00:00 58 09/18/18 21:00 Room Air 09/18/18 20:00 97.7 62 19 100/60 (73) 98 09/18/18 20:00 58 09/18/18 16:00 97.9 62 16 111/62 (78) 99 09/18/18 16:00 61 Intake and Output 09/18/18 09/19/18 19:00 07:00 Intake Total 1240 ml 120 ml Balance 1240 ml 120 ml Intake Oral 240 ml 120 ml IV Total 1000 ml # Voids 4 1 # Bowel Movements 1 Laboratory Tests Test 09/18/18 16:05 09/19/18 05:36 09/19/18 11:45 Troponin I 0.000 ng/mL (0.000-0.056) 0.000 ng/mL (0.000-0.056) 0.000 ng/mL (0.000-0.056) White Blood Count 5.0 K/UL (4.8-10.8) Red Blood Count 3.85 M/UL (4.70-6.10) L Hemoglobin 11.9 G/DL (14.2-18.0) L Hematocrit 36.6 % (42.0-52.0) L Mean Corpuscular Volume 95 FL (80-99) Mean Corpuscular Hemoglobin 30.8 PG (27.0-31.0) Mean Corpuscular Hemoglobin Concent 32.4 G/DL (32.0-36.0) Red Cell Distribution Width 13.5 % (11.6-14.8) Platelet Count 236 K/UL (150-450) Mean Platelet Volume 6.5 FL (6.5-10.1) Neutrophils (%) (Auto) 44.2 % (45.0-75.0) L Lymphocytes (%) (Auto) 42.6 % (20.0-45.0) Monocytes (%) (Auto) 5.5 % (1.0-10.0) Eosinophils (%) (Auto) 6.1 % (0.0-3.0) H Basophils (%) (Auto) 1.7 % (0.0-2.0) Prothrombin Time 9.8 SEC (9.30-11.50) Prothromb Time International Ratio 0.9 (0.9-1.1) Activated Partial Thromboplast Time 25 SEC (23-33) C-Reactive Protein, Quantitative < 0.4 mg/dL (0.00-0.90) Triglycerides Level 57 MG/DL (30-150) Cholesterol Level 192 MG/DL (< 200) LDL Cholesterol 105 mg/dL (<100) H HDL Cholesterol 72 MG/DL (40-60) H Cholesterol/HDL Ratio 2.7 (3.3-4.4) L Thyroid Stimulating Hormone (TSH) 2.000 uiU/mL (0.358-3.740) Height (Feet): 5 Height (Inches): 8.00 Weight (Pounds): 135 Medications Current Medications Medications (Trade) Dose Ordered Sig/Gregory Route PRN Reason Start Time Stop Time Status Last Admin Dose Admin Acetaminophen (Tylenol) 650 mg Q4H PRN ORAL T>100.5 09/18/18 11:15 10/18/18 11:14 Albuterol/ Ipratropium (Albuterol/ Ipratropium) 3 ml Q4H PRN HHN Shortness of Breath 09/18/18 11:15 09/23/18 11:14 Aspirin (ASA) 162 mg DAILY ORAL 09/19/18 09:00 10/19/18 08:59 09/19/18 10:22 Diltiazem HCl (Cardizem) 10 mg EVERY HOUR PRN IV heart rate more than 120 bpm 09/18/18 11:15 10/18/18 11:14 Docusate Sodium (Colace) 100 mg THREE TIMES A DAY ORAL 09/18/18 13:00 10/18/18 12:59 09/19/18 10:21 Enalaprilat (Vasotec) 2.5 mg Q6H PRN IV sbp more than 160mmHg 09/18/18 11:15 10/18/18 11:14 Heparin Sodium (Porcine) (Heparin 5000 units/ml) 5,000 units EVERY 12 HOURS SUBQ 09/18/18 21:00 10/18/18 20:59 09/19/18 10:23 Morphine Sulfate (Morphine Sulfate) 2 mg Q4H PRN IVP severe Pain (Pain Scale 7-10) 09/18/18 11:15 09/25/18 11:14 09/19/18 11:20 Nitroglycerin (Ntg) 0.4 mg Q5MIN X 3 DOSES PRN SL Prn Chest Pain 09/18/18 11:15 10/18/18 11:14 Ondansetron HCl (Zofran) 4 mg Q6H PRN IVP Nausea & Vomiting 09/18/18 11:15 10/18/18 11:14 Polyethylene Glycol (Miralax) 17 gm DAILY ORAL 09/19/18 09:00 10/19/18 08:59 09/19/18 10:21 Regadenoson (Lexiscan) 0.4 mg ONCE PRN IV STRESS TEST 09/18/18 11:15 09/19/18 23:59 Temazepam (Restoril) 15 mg HSPRN PRN ORAL Insomnia 09/18/18 21:00 09/25/18 20:59 Assessment/Plan Problem List: (1) Inguinal hernia of left side without obstruction or gangrene Assessment & Plan: This is a 78-year-old male with a left inguinal hernia. Patient has had hernia for many years and decided against surgery. He now feels he is too old to consider surgery and states he has had it for so long without complications that he thinks he can live with it for the rest of his life. Currently denies any nausea vomiting fever or chills. Normal bowel movements and flatus. No obstructive symptoms. CT performed for flank pain identified a left inguinal hernia with bowel contents and fluid collection. On evaluation at bedside there is a left inguinal hernia identified with contents which are easily reducible. Once reduced I can palpate a defect which seemingly feels like a direct left inguinal hernia. Abdominal exam is otherwise benign without any tenderness. Patient states that throughout the years the hernia has been reducible and is never had an episode of incarceration that he is aware of. Patient states that he has been informed of the potential complications including incarceration strangulation potential need for emergency surgery in the past. With those in mind he has decided against surgery. Given his age and current medical condition I respect patient' s wishes and will monitor hernia for now without surgical intervention. Okay for diet from surgical standpoint. We will follow with recommendations. Thank you for allowing me to participate in patient's care ICD Codes: K40.90 - Unilateral inguinal hernia, without obstruction or gangrene , not specified as recurrent SNOMED: [id number] Kenny Jonas Sep 19, 2018 13:37
--- NOTE | 2018-09-19 14:00 | NUR ---
CASE MANAGEMENT:REVIEW 78 YR OLD MALE FROM HOME TO ER CC: CHEST PAIN SI: CHEST PAIN 98.2 83 16 120/60 95% ON RA TROPONIN(-) IS: 1L NS BOLUS FLEXERIL PO ASA PO CHEST XRAY CT ABD/PELVIS : TO TELEMETRY
--- NOTE | 2018-09-19 14:36 | Internal Med Progress Note ---
Subjective Physician Name Kasi Silva Attending Physician Kasi Silva MD Current Medications Medications (Trade) Dose Ordered Sig/Gregory Route PRN Reason Start Time Stop Time Status Last Admin Dose Admin Acetaminophen (Tylenol) 650 mg Q4H PRN ORAL T>100.5 09/18/18 11:15 10/18/18 11:14 Albuterol/ Ipratropium (Albuterol/ Ipratropium) 3 ml Q4H PRN HHN Shortness of Breath 09/18/18 11:15 09/23/18 11:14 Aspirin (ASA) 162 mg DAILY ORAL 09/19/18 09:00 10/19/18 08:59 09/19/18 10:22 Diltiazem HCl (Cardizem) 10 mg EVERY HOUR PRN IV heart rate more than 120 bpm 09/18/18 11:15 10/18/18 11:14 Docusate Sodium (Colace) 100 mg THREE TIMES A DAY ORAL 09/18/18 13:00 10/18/18 12:59 09/19/18 10:21 Enalaprilat (Vasotec) 2.5 mg Q6H PRN IV sbp more than 160mmHg 09/18/18 11:15 10/18/18 11:14 Heparin Sodium (Porcine) (Heparin 5000 units/ml) 5,000 units EVERY 12 HOURS SUBQ 09/18/18 21:00 10/18/18 20:59 09/19/18 10:23 Morphine Sulfate (Morphine Sulfate) 2 mg Q4H PRN IVP severe Pain (Pain Scale 7-10) 09/18/18 11:15 09/25/18 11:14 09/19/18 11:20 Nitroglycerin (Ntg) 0.4 mg Q5MIN X 3 DOSES PRN SL Prn Chest Pain 09/18/18 11:15 10/18/18 11:14 Ondansetron HCl (Zofran) 4 mg Q6H PRN IVP Nausea & Vomiting 09/18/18 11:15 10/18/18 11:14 Polyethylene Glycol (Miralax) 17 gm DAILY ORAL 09/19/18 09:00 10/19/18 08:59 09/19/18 10:21 Regadenoson (Lexiscan) 0.4 mg ONCE PRN IV STRESS TEST 09/18/18 11:15 09/19/18 23:59 Temazepam (Restoril) 15 mg HSPRN PRN ORAL Insomnia 09/18/18 21:00 09/25/18 20:59 Allergies: Coded Allergies: IODINE (Unverified Allergy, Unknown, 09/07/15) Subjective awake, alert, responsive, No CP or SOB, No nausea or vomiting. Objective Last Vital Signs Date Time Temp Pulse Resp B/P (MAP) Pulse Ox O2 Delivery O2 Flow Rate FiO2 09/19/18 12:00 98.3 62 20 128/63 (84) 96 09/19/18 09:00 Room Air 09/19/18 07:30 21 Laboratory Tests Test 09/18/18 16:05 09/19/18 05:36 09/19/18 11:45 Troponin I 0.000 ng/mL (0.000-0.056) 0.000 ng/mL (0.000-0.056) 0.000 ng/mL (0.000-0.056) White Blood Count 5.0 K/UL (4.8-10.8) Red Blood Count 3.85 M/UL (4.70-6.10) L Hemoglobin 11.9 G/DL (14.2-18.0) L Hematocrit 36.6 % (42.0-52.0) L Mean Corpuscular Volume 95 FL (80-99) Mean Corpuscular Hemoglobin 30.8 PG (27.0-31.0) Mean Corpuscular Hemoglobin Concent 32.4 G/DL (32.0-36.0) Red Cell Distribution Width 13.5 % (11.6-14.8) Platelet Count 236 K/UL (150-450) Mean Platelet Volume 6.5 FL (6.5-10.1) Neutrophils (%) (Auto) 44.2 % (45.0-75.0) L Lymphocytes (%) (Auto) 42.6 % (20.0-45.0) Monocytes (%) (Auto) 5.5 % (1.0-10.0) Eosinophils (%) (Auto) 6.1 % (0.0-3.0) H Basophils (%) (Auto) 1.7 % (0.0-2.0) Prothrombin Time 9.8 SEC (9.30-11.50) Prothromb Time International Ratio 0.9 (0.9-1.1) Activated Partial Thromboplast Time 25 SEC (23-33) C-Reactive Protein, Quantitative < 0.4 mg/dL (0.00-0.90) Triglycerides Level 57 MG/DL (30-150) Cholesterol Level 192 MG/DL (< 200) LDL Cholesterol 105 mg/dL (<100) H HDL Cholesterol 72 MG/DL (40-60) H Cholesterol/HDL Ratio 2.7 (3.3-4.4) L Thyroid Stimulating Hormone (TSH) 2.000 uiU/mL (0.358-3.740) Intake and Output 09/18/18 09/19/18 19:00 07:00 Intake Total 1240 ml 120 ml Balance 1240 ml 120 ml Intake Oral 240 ml 120 ml IV Total 1000 ml # Voids 4 1 # Bowel Movements 1 Objective General: No acute distress, awake and alert HEENT: NCAT, sclera anicteric, PERRL, EOMI. Neck: Supple, no significant jugular venous distention, Lungs: Good inspiratory effort, clear to auscultation bilaterally, no Wheeze or Rales. Heart: Regular rate and rhythm, normal S1/S2, no murmurs/gallops Abdomen: soft, nontender, nondistended. Normoactive bowel sounds. / Rectal: Refused and deferred. Extremities: No Cyanosis , clubbing or edema. Neuro: A&O x 3, Able to move all extremities Skin: warm, no rashes or lesions Psych: Normal mood and affect Assessment/Plan Assessment/Plan 1. Chronic obstructive pulmonary disease. 2. Allergic rhinitis. 3. Chest pain R/O ACS. 4. Moderate-sized left inguinal hernia containing loops of small bowel and a 3 cm fluid collection. 5. Chronic smoker. Plan: stress test today Monitor labs, Troponin X 4 negative DC home soon F/U with surgery recommendations. 2D Echo: Normal left ventricular chamber size, systolic function and wall motion. Left ventricular ejection fraction estimated to be 55-60 %. No evidence of left ventricular hypertrophy. No evidence of pericardial effusion. All other cardiac chamber sizes are within normal limits. Focal aortic valve sclerosis with adequate cusp excursion. Thickened mitral valve leaflets with normal excursion. Mitral annulus and aortic root calcification. Pulmonic valve not well visualized. Normal tricuspid valve structure. IVC at normal size with physiologic collapse. A color flow and spectral Doppler study was performed and revealed: No aortic regurgitation. Mild mitral regurgitation. Mitral diastolic velocities suggest reduced left ventricular relaxation c/w mild LV diastolic dysfunction (Grade I). Trace to mild tricuspid regurgitation. Tricuspid systolic velocities suggests peak right ventricular systolic pressure of 33 mmHg. Trace pulmonic regurgitation present. Kasi Silva MD Sep 19, 2018 14:36
--- NOTE | 2018-09-19 15:24 | Cardiac Electrophysiology PN ---
Assessment/Plan Status Narrative CT abdomen IMPRESSION: Moderate-sized left inguinal hernia containing loops of small bowel and a 3 cm fluid collection which may reflect inflammation. Please correlate clinically for consideration. 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 Degenerative changes of the spine. 5 mm nodule at the left lung base. Depending on risk factors, follow-up examination suggested in 6-12 months. Assessment/Plan 1. Left-sided chest and flank pain. EKG is nonischemic. The patient does not have high blood pressure or diabetes. Echocardiogram Nl EF and completely ruled out for myocardial infarction protocol. Awaiting nuclear stress test report. CT abdomen and pelvis noted. FU Dr Montelongo 2. Chronic obstructive pulmonary disease and asthma, nebulizer per Dr. Sands. KATELYNN RN Subjective Subjective Feeling better. Just had nuclear stress test today. No CP Objective Last 24 Hour Vital Signs Date Time Temp Pulse Resp B/P (MAP) Pulse Ox O2 Delivery O2 Flow Rate FiO2 09/19/18 12:00 98.3 62 20 128/63 (84) 96 09/19/18 11:50 98.3 09/19/18 11:35 60 09/19/18 09:00 Room Air 09/19/18 08:00 97.6 54 18 117/61 (79) 97 09/19/18 07:55 53 09/19/18 07:30 63 15 94 Room Air 21 09/19/18 04:00 59 09/19/18 04:00 97.7 56 18 107/54 (71) 97 09/19/18 00:27 65 20 97 Room Air 21 09/19/18 00:00 97.8 63 18 110/56 (74) 97 09/19/18 00:00 58 09/18/18 21:00 Room Air 09/18/18 20:00 97.7 62 19 100/60 (73) 98 09/18/18 20:00 58 09/18/18 16:00 97.9 62 16 111/62 (78) 99 09/18/18 16:00 61 Intake and Output 09/18/18 09/19/18 19:00 07:00 Intake Total 1240 ml 120 ml Balance 1240 ml 120 ml Intake Oral 240 ml 120 ml IV Total 1000 ml # Voids 4 1 # Bowel Movements 1 Laboratory Tests Test 09/18/18 16:05 09/19/18 05:36 09/19/18 11:45 Troponin I 0.000 ng/mL (0.000-0.056) 0.000 ng/mL (0.000-0.056) 0.000 ng/mL (0.000-0.056) White Blood Count 5.0 K/UL (4.8-10.8) Red Blood Count 3.85 M/UL (4.70-6.10) L Hemoglobin 11.9 G/DL (14.2-18.0) L Hematocrit 36.6 % (42.0-52.0) L Mean Corpuscular Volume 95 FL (80-99) Mean Corpuscular Hemoglobin 30.8 PG (27.0-31.0) Mean Corpuscular Hemoglobin Concent 32.4 G/DL (32.0-36.0) Red Cell Distribution Width 13.5 % (11.6-14.8) Platelet Count 236 K/UL (150-450) Mean Platelet Volume 6.5 FL (6.5-10.1) Neutrophils (%) (Auto) 44.2 % (45.0-75.0) L Lymphocytes (%) (Auto) 42.6 % (20.0-45.0) Monocytes (%) (Auto) 5.5 % (1.0-10.0) Eosinophils (%) (Auto) 6.1 % (0.0-3.0) H Basophils (%) (Auto) 1.7 % (0.0-2.0) Prothrombin Time 9.8 SEC (9.30-11.50) Prothromb Time International Ratio 0.9 (0.9-1.1) Activated Partial Thromboplast Time 25 SEC (23-33) C-Reactive Protein, Quantitative < 0.4 mg/dL (0.00-0.90) Triglycerides Level 57 MG/DL (30-150) Cholesterol Level 192 MG/DL (< 200) LDL Cholesterol 105 mg/dL (<100) H HDL Cholesterol 72 MG/DL (40-60) H Cholesterol/HDL Ratio 2.7 (3.3-4.4) L Thyroid Stimulating Hormone (TSH) 2.000 uiU/mL (0.358-3.740) Objective HEAD AND NECK: Shows no JVD. LUNGS: Clear. CARDIOVASCULAR: Shows regular S1 and S2 with no gallop or murmur. ABDOMEN: Soft. EXTREMITIES: No pitting edema. Michael Pacheco MD Sep 19, 2018 15:24
--- NOTE | 2018-09-19 15:55 | Diagnostic Imaging Report ---
Indications: Chest pain Technique: Single day single isotope protocol utilized. Initially, resting images obtained using IV administration 10.7 millicuries 99M technetium Myoview. Subsequently, patient underwent lexiscan stress testing. See cardiology report for details. During Lexiscan infusion, IV administration 30.9 mCi 99 M technetium Myoview. SPECT and planar images obtained. SPECT images gated to 8 phases of the cardiac cycle were also obtained, and reformatted into cine images for evaluation of ejection fraction. Comparison: Findings: Per cardiology report, patient experienced no chest pain. Per cardiology report, resting EKG demonstrates normal sinus rhythm. During infusion, no significant ST-T wave changes demonstrated. Imaging demonstrates no definite fixed nor reversible post-rest perfusion defects. Normal cardiac chamber size.. Calculated post stress ejection fraction 67%. No significant focal wall motion abnormality Impression: Nonischemic clinical response to pharmacologic stress, per cardiology report Nonischemic electrocardiographic response to pharmacologic stress, per cardiology report No imaging findings to suggest ischemia, at level of stress achieved. Calculated post stress ejection fraction 67%
[2018-09-19 16:00] VITALS: BP 134/69
[2018-09-19 17:09] VITALS: BP 134/69
--- NOTE | 2018-09-19 18:38 | CDS Physician Query ---
Clarification is required for compliance, coding accuracy, and to reflect severity of illness for this patient Dear Dr. Arteaga Date 09/19/18 CDS' Name _Ho Please document the suspected etiology of Chest Pain: [] Aortic dissection [] Acute myocardial infarction [] Acute Coronary Syndrome [] Pericarditis [] Anxiety [] Cancer [] Pneumonia [] Costochondritis [] Pneumothorax [] GERD/Esophagitis [] Pulmonary embolism [] Other: [] Unable to determine Present on Admission: [] Yes [] No [] Clinically Undetermined Physician signature Date Please also document in your Progress Notes and/or Discharge Summary and indicate if the condition was present on admission. AMADO
--- NOTE | 2018-09-19 18:46 | NUR ---
NURSE NOTES: patient discharged with all his belonging as ordered. vital signs stable. 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
--- NOTE | 2018-09-20 09:09 | Discharge Summary ---
Discharge Summary Discharge Summary _ DATE OF ADMISSION: 09/18/2018 DATE OF DISCHARGE: 09/19/2018 ATTENDING MD: Dr. Kasi Silva CONSULTANTS: Dr. Michael Sands BRIEF HOSPITAL COURSE: Patient is a 78-year-old -[place] male, who presented with chief complaint of chest pain. Patient has history of COPD and stated symptoms had been ongoing for 3 days. He began to experience left-sided chest wall pain that radiated to the back. He then presented to ED for further evaluation. He denied any leg pain, recent travel, syncope, abdominal pain, urinary symptoms or vomiting, or diarrhea. He had tried [id number] medications with partial relief. On evaluation at ED, vital signs were stable. Blood work did not show any leukocytosis. Hemoglobin 12, hematocrit 36. Sodium was elevated to 147, chloride 110. BUN was 12. Creatinine was elevated to 1.4. EKG showed normal sinus rhythm with no acute changes. Chest x-ray did not show any acute disease. CT of the abdomen and pelvis showed a moderate sized left inguinal hernia containing loops of small bowel and a 3 cm fluid collection. There was low suspicion for dissection or pulmonary embolism. He was given aspirin. He was then admitted for evaluation of chest pain. He was admitted to monitored floor. Cardiac enzymes were monitored. He was seen by tattoo artist. EKG showed sinus rhythm with right atrial enlargement. Lipid panel showed LDL of 105, HDL 72. Total cholesterol 192. He was given aspirin. Echocardiogram showed EF 55 to 60%. There was no aortic regurgitation. Surgeon was consulted for evaluation of left inguinal hernia. Patient stated he had left inguinal hernia since his fourteenths. He debated surgical repair but decided not to proceed. He denied any symptoms from the hernia. He had normal bowel movements and flatulence. There was no obstructive symptoms seen. On evaluation, there was a left inguinal hernia identified with contents which are easily reducible. Once reduced, palpation felt like direct inguinal hernia. Abdominal exam was otherwise benign without any tenderness. He was informed of potential complications including incarceration, strangulation and potential need for emergency surgery surgery and patient decided against surgery given his age and current medical condition. He underwent Lexiscan stress test. Results were nonischemic. Patient was ruled out for IN. Due to rapid unexpected improvement in patient's symptoms and negative work-up, he was then cleared for discharge home. FINAL DIAGNOSES: Left-sided chest pain and flank pain Moderate-sized left inguinal hernia containing loops of small bowel 5 mm nodule at the left lung base COPD Allergic rhinitis Chronic smoker DISPOSITION: Patient was discharged home. DISCHARGE MEDICATIONS: Refer to Discharge Medication List. DISCHARGE INSTRUCTIONS: Follow-up in a week. Recommended to have follow-up CT examination for evaluation of lung nodule in 6 to 12 months. I have been assigned to complete a discharge summary on this account, I was not involved with the patient's management.--JOANN Guerrero Jacqueline Robles NP Sep 20, 2018 09:09
== END 2018-09-19 18:44 | disposition home or self-care (01) | DRG 313 ==
LOC: EMR 08:11 → 2E 09:09 → EDBEDREQ 10:00
DX: R07.89 Other chest pain (principal); J44.9 Chronic obstructive pulmonary disease, unspecified; K40.90 Unilateral inguinal hernia, without obstruction or gangrene, not specified as recurrent; R91.1 Solitary pulmonary nodule; R10.9 Unspecified abdominal pain; F17.200 Nicotine dependence, unspecified, uncomplicated; J30.9 Allergic rhinitis, unspecified; Z88.8 Allergy status to other drugs, medicaments and biological substances
CPT/HCPCS: 36415; 71046; 74176; 78452; 80053; 80061; 81003; 83690; 84443; 84484; 85025; 85610; 85730; 86140; 93005; 93017; 93306; 94664; 96360; 99285

== ENCOUNTER 2018-12-17 12:41 | Inpatient (IN) | payer MEDICARE, BC ==
[~2018-12-17] VITALS: Ht 170.2 cm; Wt 51.7 kg
[~2018-12-17 12:41] MED LIST changes: +ACETAMINOPHEN-1 EAC1 ORAL; +IBUPROFEN600 MG ORAL
--- NOTE | 2018-12-17 13:10 | NUR ---
ED Nurse Note: Pt walked in ED per Dr Silva d/t generalized weakness and dizziness today. Pt aox4, also c/o nausea but denies vomiting. Placed in hospital gown and quality assurance monitor final. VSS at this time.
[2018-12-17 13:57] LABS: APPEARANCE,URINE CLEAR; BILIRUBIN, URINE NEGATIVE (NEGATIVE); GLUCOSE, URINE (UA) NEGATIVE (NEGATIVE); KETONES,URINE 4+ (NEGATIVE); LEUKOCYTE ESTERASE ,URINE NEGATIVE (NEGATIVE); NITRITE,URINE NEGATIVE (NEGATIVE); PH,URINE 5 (4.5-8.0); PROTEIN,URINE 1+ (NEGATIVE); UROBILINOGEN,URINE 1 MG/DL (0.0-1.0)
[2018-12-17 13:58] LABS: BASOPHILS % (AUTO) 1.7 % (0.0-2.0); HEMATOCRIT 36.8 % (42.0-52.0); LYMPHOCYTES % (AUTO) 26.3 % (20.0-45.0); MEAN CORPUSCULAR VOLUME 94 FL (80-99); MONOCYTES % (AUTO) 6.2 % (1.0-10.0); NEUTROPHILS % (AUTO) 64.8 % (45.0-75.0); PLATELET COUNT 250 K/UL (150-450); RED BLOOD COUNT 3.92 M/UL (4.70-6.10); RED CELL DISTRIBUTION WIDTH 12.9 % (11.6-14.8); WHITE BLOOD COUNT 6.4 K/UL (4.8-10.8)
[2018-12-17 14:09] LABS: COLOR,URINE YELLOW
[2018-12-17 14:15] LABS: ANION GAP 15 mmol/L (5-15); BLOOD UREA NITROGEN 18 mg/dL (7-18); CALCIUM 9.5 MG/DL (8.5-10.1); CARBON DIOXIDE 24 MMOL/L (21-32); CHLORIDE 105 MMOL/L (98-107); CREATININE 1.2 MG/DL (0.55-1.30); POTASSIUM 4.1 MMOL/L (3.5-5.1); SODIUM 144 MMOL/L (136-145)
[2018-12-17 14:18] LABS: ALANINE AMINOTRANSFERASE 31 U/L (12-78); ALBUMIN 3.8 G/DL (3.4-5.0); ALBUMIN/GLOBULIN RATIO 1.1 (1.0-2.7); ALKALINE PHOSPHATASE 64 U/L (46-116); ASPARTATE AMINO TRANSFERASE 18 U/L (15-37); BILIRUBIN,TOTAL 0.6 MG/DL (0.2-1.0); CREATINE KINASE 254 U/L (26-308)
[2018-12-17] MEDS ORDERED: Isovue-300 100ml vial INJ PRN (14:30)
--- NOTE | 2018-12-17 14:30 | NUR ---
ED Nurse Note: IV fluids ongoing. Will continue to monitor.
[2018-12-17] MEDS ORDERED: Zolpidem 5mg tab ORAL PRN (14:45)
[2018-12-17] MEDS ORDERED: Miralax 17gm pkt ORAL PRN (14:45)
[2018-12-17] MEDS ORDERED: LORazepam Inj 2mg/ml 1ml IV PRN (14:45)
[2018-12-17] MEDS ORDERED: Morphine Sulfate 2mg/ml Inj(IV/IM USE ONLY) IVP PRN (14:45)
[2018-12-17 14:56] VITALS: BP_SYST 118; BP_SYST 120; BP_DIAS 72; BP_DIAS 73
[2018-12-17 14:59] VITALS: BP_SYST 117; BP_SYST 122; BP_DIAS 72; BP_DIAS 73
--- NOTE | 2018-12-17 15:03 | NUR ---
ED Nurse Note: Pt taken for CT via WC, in stable condition.
--- NOTE | 2018-12-17 15:06 | NUR ---
ED Nurse Note: pt back from CT, in stable condition. Placed back on night monitor. Denies dizzine at this time. Will continue to monitor.
[2018-12-17 15:09] VITALS: BP 126/73
--- NOTE | 2018-12-17 15:16 | NUR ---
ED Nurse Note: xray at bedside
--- NOTE | 2018-12-17 15:51 | Emergency Room Report ---
History of Present Illness General Chief Complaint: Generalized Weakness Source: Patient Present Illness HPI 78-year-old male presents ED for evaluation. Patient states that he has been feeling weak for the last several months. States he is lost a lot of weight. Went to PMD Dr. holt office today who referred him to the ED for evaluation. States he feels dizzy at times. Denies any cough. Denies any fevers or chills. States he did receive a flu vaccine. No other aggravating relieving factors. Denies any other associated symptoms Allergies: Coded Allergies: IODINE (Unverified Allergy, Unknown, 09/07/15) Uncoded Allergies: SEAFOOD (Allergy, Unknown, 12/17/18) SHELLFISH (Allergy, Unknown, 12/17/18) Patient History Past Medical History: asthma, COPD Pertinent Family History: none Social History: Denies: smoking, alcohol use, drug use Immunizations: UTD Reviewed Nursing Documentation: PMH: Agreed; PSxH: Agreed Nursing Documentation-PMH Past Medical History: No History, Except For Hx Cardiac Problems: No Hx Hypertension: No Hx Pacemaker: No Hx Asthma: Yes Hx COPD: Yes Hx Diabetes: No Hx Cancer: No Hx Gastrointestinal Problems: No Hx Dialysis: No Hx Neurological Problems: No Hx Cerebrovascular Accident: No Hx Seizures: No Review of Systems All Other Systems: negative except mentioned in HPI Physical Exam Vital Signs Date Time Temp Pulse Resp B/P (MAP) Pulse Ox O2 Delivery O2 Flow Rate FiO2 12/17/18 12:45 97.9 88 16 120/73 (89) 99 Room Air Sp02 EP Interpretation: reviewed, normal General Appearance: no apparent distress, alert, GCS 15, non-toxic, cachetic Head: normocephalic, atraumatic Eyes: bilateral eye normal inspection, bilateral eye PERRL ENT: hearing grossly normal, normal pharynx, no angioedema, normal voice Neck: full range of motion, supple/symm/no masses Respiratory: chest non-tender, lungs clear, normal breath sounds, speaking full sentences Cardiovascular #1: regular rate, rhythm, no edema Cardiovascular #2: 2+ carotid (R), 2+ carotid (L), 2+ radial (R), 2+ radial (L) , 2+ dorsalis pedis (R), 2+ dorsalis pedis (L) Gastrointestinal: normal bowel sounds, non tender, soft, non-distended, no guarding, no rebound Rectal: deferred Genitourinary: normal inspection, no CVA tenderness Musculoskeletal: back normal, gait/station normal, normal range of motion, non- tender Neurologic: alert, oriented x3, responsive, motor strength/tone normal, sensory intact, speech normal Psychiatric: judgement/insight normal, memory normal, mood/affect normal, no suicidal/homicidal ideation Reflexes: 3+ bicep (R), 3+ bicep (L), 3+ tricep (R), 3+ tricep (L), 3+ knee (R) , 3+ knee (L) Skin: other - see nursing skin notes Lymphatic: no adenopathy Medical Decision Making Diagnostic Impression: Primary Impression: Episode of generalized weakness ER Course Hospital Course 78-year-old male presenting to ED with generalized weakness, signficiant weight loss Differential diagnoses include: Pneumonia, UTI, sepsis, dehydration, AK/ unstable angina, failure to thrive Clinical course Patient placed on stretcher. On cardiac cath rn with stable vitals. After initial history and physical, I ordered labs, IV fluids, EKG, chest x-ray, CT Chest/Abd/Pelvis Labs - no leukocytosis, hb/hct stable, electrolytes ok, trop negative, UA negative EKG - NSR, no acute ischemic changes interpreted by me CXR - no acute process CT chest Abd Pelvis - unchanged R pulmonary nodule. diverticulosis without diverticulitis. L inguinal hernia unchanged Case discussed with Dr Silva and they agreed to admit patient to their service for further care and support I feel this is a highly complex case requiring extensive working including EKG/ Rhythm strip, Xray/CT/US, Blood/urine lab work, repeat exams while in ED, and administration of strong opiates/narcotics for pain control, admission to hospital or close patient follow up. Diagnosis - episode of generalized weakness, Patient admitted to floor in serious condition Labs Test 12/17/18 13:25 12/17/18 13:35 Urine Color Yellow Urine Appearance Clear Urine pH 5 (4.5-8.0) Urine Specific [place] 1.025 (1.005-1.035) Urine Protein 1+ (NEGATIVE) Urine Glucose (UA) Negative (NEGATIVE) Urine Ketones 4+ (NEGATIVE) Urine Blood 1+ (NEGATIVE) Urine Nitrite Negative (NEGATIVE) Urine Bilirubin Negative (NEGATIVE) Urine Urobilinogen 1 MG/DL (0.0-1.0) Urine Leukocyte Esterase Negative (NEGATIVE) Urine RBC 0-2 /HPF (0 - 0) Urine WBC 0-2 /HPF (0 - 0) Urine Squamous Epithelial Cells Occasional /LPF Urine Bacteria Few /HPF (NONE) Urine Mucus Few /LPF (NONE/OCC) White Blood Count 6.4 K/UL (4.8-10.8) Red Blood Count 3.92 M/UL (4.70-6.10) Hemoglobin 12.0 G/DL (14.2-18.0) Hematocrit 36.8 % (42.0-52.0) Mean Corpuscular Volume 94 FL (80-99) Mean Corpuscular Hemoglobin 30.7 PG (27.0-31.0) Mean Corpuscular Hemoglobin Concent 32.7 G/DL (32.0-36.0) Red Cell Distribution Width 12.9 % (11.6-14.8) Platelet Count 250 K/UL (150-450) Mean Platelet Volume 6.9 FL (6.5-10.1) Neutrophils (%) (Auto) 64.8 % (45.0-75.0) Lymphocytes (%) (Auto) 26.3 % (20.0-45.0) Monocytes (%) (Auto) 6.2 % (1.0-10.0) Eosinophils (%) (Auto) 1.0 % (0.0-3.0) Basophils (%) (Auto) 1.7 % (0.0-2.0) Sodium Level 144 MMOL/L (136-145) Potassium Level 4.1 MMOL/L (3.5-5.1) Chloride Level 105 MMOL/L (98-107) Carbon Dioxide Level 24 MMOL/L (21-32) Anion Gap 15 mmol/L (5-15) Blood Urea Nitrogen 18 mg/dL (7-18) Creatinine 1.2 MG/DL (0.55-1.30) Estimat Glomerular Filtration Rate mL/min (>60) Glucose Level 76 MG/DL (74-106) Calcium Level 9.5 MG/DL (8.5-10.1) Total Bilirubin 0.6 MG/DL (0.2-1.0) Aspartate Amino Transf (AST/SGOT) 18 U/L (15-37) Alanine Aminotransferase (ALT/SGPT) 31 U/L (12-78) Alkaline Phosphatase 64 U/L (46-116) Total Creatine Kinase 254 U/L (26-308) Troponin I 0.000 ng/mL (0.000-0.056) Total Protein 7.3 G/DL (6.4-8.2) Albumin 3.8 G/DL (3.4-5.0) Globulin 3.5 g/dL Albumin/Globulin Ratio 1.1 (1.0-2.7) Lipase 219 U/L (73-393) EKG Diagnostic Results Rate: normal Rhythm: NSR ST Segments: no acute changes ASA given to the pt in ED: No Rhythm Strip Diag. Results EP Interpretation: yes Rhythm: NSR, no PVC's, no ectopy Chest X-Ray Diagnostic Results Chest X-Ray Diagnostic Results : Chest X-Ray Ordered: Yes # of Views/Limited/Complete: 1 View Indication: Other - weakness\ EP Interpretation: Yes Interpretation: no consolidation, no effusion, no pneumothorax, no acute cardiopulmonary disease Impression: No acute disease CT/MRI/US Diagnostic Results CT/MRI/US Diagnostic Results : Imaging Test Ordered: CT Chest/Abd/Pelvis Impression thick walled left inguinal hernia unchanged. irregiular R upper lobe nodule unchanged from last CT (12/12). divertulosis without diverticulitis Last Vital Signs Date Time Temp Pulse Resp B/P (MAP) Pulse Ox O2 Delivery O2 Flow Rate FiO2 12/17/18 15:09 98.1 81 16 126/73 100 Room Air Status: improved Disposition: ADMITTED INPATIENT Condition: Serious Referrals: Kasi Silva MD (PCP) Cornelio Mcdonough MD Dec 17, 2018 15:51
--- NOTE | 2018-12-17 16:04 | NUR ---
ED Nurse Note: Report given to GRACIA Young over the phone.
[2018-12-17 16:06] VITALS: BP 124/56
--- NOTE | 2018-12-17 16:17 | NUR ---
TRANSFER TO FLOOR: Patient transferred to [facility] room 416-1 as ordered. Report given to GRACIA Young. Belongings list inventoried and signed. Transferred patient via gurney in stable condition.
[2018-12-17 16:45] VITALS: BP 97/58
--- NOTE | 2018-12-17 17:00 | NUR ---
NURSE NOTES: PT WAS ADMITTED TO FLOOR IN STABLE CONDITION. CRN CHECKED BELONGINGS WITH PT. PT HAS BLACK ZTE CELLPHONE AT BEDSIDE. PT EDUCATED ON SAFETY/FALL PRECAUTIONS, DO NOT AMBULATE INDEPENDENTLY, USE CALL LIGHT IF EXPERIENCING DIZZINESS/SOB. PT VERBALIZED UNDERSTANDING. DENIES PAIN. IN NO APPARENT DISTRESS AT THIS TIME.
[2018-12-17] MEDS ORDERED: MONTELUKAST SOD10 MG ORAL (18:23)
[2018-12-17 20:00] VITALS: BP 90/54
--- NOTE | 2018-12-17 20:04 | NUR ---
HAND-OFF: Report given to JAVIER RODRIGUEZ RN.
--- NOTE | 2018-12-17 20:05 | NUR ---
NURSE NOTES: Received report & pt from Hector Shaikh RN. Pt lying in bed, a&ox4, in room air. No s/s of acute distress & no c/o pain at this time. IV site intact & S/L'd. Bed in lowest position, call light within reach. Will continue to monitor.
--- NOTE | 2018-12-17 20:18 | Diagnostic Imaging Report ---
Indication: Cough. Technique: Single AP view of the chest. Comparison: Chest radiograph dated 09/18/2018 Findings: The cardiomediastinal silhouette is within normal limits. Redemonstration of prominent interstitial markings. No new airspace consolidation. Pneumothorax or pleural effusion. Osseous structures demonstrate no acute abnormality. Redemonstration of streaky right upper lobe airspace opacity corresponding to irregular nodule seen on comparison CT. Other identified nodules are not well seen on radiograph. IMPRESSION: No radiographic evidence of acute cardiopulmonary process.
--- NOTE | 2018-12-17 20:18 | Diagnostic Imaging Report ---
CT ABDOMEN CHEST, AND PELVIS WITHOUT CONTRAST INDICATION: Abdominal pain TECHNIQUE: Continuous helical transaxial imaging of the abdomen and pelvis was obtained from the lung bases to the pubic symphysis. Coronal 2-D reformats were also obtained. Study obtained in a Siemens sensation [address] Automatic Exposure Control was utilized. Total Dose length Product (DLP): 691.[address] Dose Index Volume (CTDIvol): 9.5 mGy COMPARISON: CT abdomen and pelvis dated 09/18/2018; CT chest dated 12/09/2017 FINDINGS: Note that evaluation of the thoracic and abdominal pelvic versus limited in the absence of intravenous contrast. Lungs and pleura: There is mild emphysema with biapical scarring. There is a calcified right upper lobe granuloma. Previously identified irregular right apical nodule measures 1.8 x 1.1 cm and is unchanged in size. There are new scattered nodules. For example: * Solid 4 mm right upper lobe nodule (2:32). * Solid and spiculated 7 mm left upper lobe nodule (2:34). * Solid 4 mm right upper lobe nodule (2:50). * Solid 5 mm left lower lobe nodule (2:04), unchanged since 09/18/2018, but new since chest CT from 2018. Right upper lobe nodular density (2:31) may represent additional nodule. Heart and mediastinum: Thyroid is unremarkable. Heart is not enlarged. Mild coronary artery atherosclerotic calcification. Aortic valve is mildly calcified. Airway: Patent. Lymph nodes: No lymphadenopathy. Vasculature: Severe aortoiliac atherosclerotic calcification. Hepatobiliary:: Nonspecific coarse calcification in the right hepatic lobe. Genitourinary:: No hydronephrosis. 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 Adrenals:: Unremarkable. Pancreas:: Unremarkable. Gastrointestinal:: No evidence of obstruction. Extensive colonic diverticulosis without evidence of acute diverticulitis. Panex is normal. Spleen: : Unremarkable. Peritoneum:: Large left inguinal hernia containing thick-walled hypodense collection, which may be contiguous with left lateral inferior bladder wall. Fat-containing right inguinal hernia. Bones and soft tissues:: There are multilevel discogenic degenerative changes of the visualized spine. Moderate scoliosis. Old healed left posterior sixth through ninth rib fractures. IMPRESSION: 1. Thick-walled left inguinal hernia fluid collection which is seen on prior examination, but which may be contiguous with the left inferior lateral bladder wall and represent herniated urinary bladder. Scrotal ultrasound pre and post void may be useful for more complete evaluation, or correlation with recent cystoscopy. 2. No significant change in size of irregular right upper lobe nodule. Scattered pulmonary nodules, new since CT examination dated 12/09/2017, including spiculated left upper lobe nodule, are highly suspicious for neoplasm, either metastatic from unknown primary, metachronous primary pulmonary neoplasm, or metastatic pulmonary from right upper lobe lesion. In the absence of prior biopsy, tissue sampling is recommended. 3. Diverticulosis without evidence of acute diverticulitis. The CT scanner at [facility] is accredited by the [employer] and the scans are performed using protocols designed to limit radiation exposure to as low as reasonably achievable to attain images of sufficient resolution adequate for diagnostic evaluation
[2018-12-18] VITALS: BP 105/48
[2018-12-18 04:00] VITALS: BP 97/60
[2018-12-18 06:36] LABS: BASOPHILS % (AUTO) 0.9 % (0.0-2.0); EOSINOPHILS % (AUTO) 5.4 % (0.0-3.0); HEMOGLOBIN 10.9 G/DL (14.2-18.0); MEAN CORPUSCULAR VOLUME 93 FL (80-99); MONOCYTES % (AUTO) 7.7 % (1.0-10.0); PLATELET COUNT 226 K/UL (150-450); RED BLOOD COUNT 3.44 M/UL (4.70-6.10); RED CELL DISTRIBUTION WIDTH 13.1 % (11.6-14.8); WHITE BLOOD COUNT 5.4 K/UL (4.8-10.8)
[2018-12-18 07:23] LABS: ALANINE AMINOTRANSFERASE 27 U/L (12-78); ALBUMIN 3.2 G/DL (3.4-5.0); ALKALINE PHOSPHATASE 59 U/L (46-116); ANION GAP 7 mmol/L (5-15); ASPARTATE AMINO TRANSFERASE 18 U/L (15-37); BILIRUBIN,TOTAL 0.4 MG/DL (0.2-1.0); BLOOD UREA NITROGEN 18 mg/dL (7-18); CALCIUM 8.6 MG/DL (8.5-10.1); CARBON DIOXIDE 27 MMOL/L (21-32); CHLORIDE 107 MMOL/L (98-107); CHOLESTEROL 188 MG/DL (< 200); CREATININE 1.1 MG/DL (0.55-1.30); HDL CHOLESTEROL 70 MG/DL (40-60); POTASSIUM 4.3 MMOL/L (3.5-5.1); SODIUM 141 MMOL/L (136-145); TRIGLYCERIDES 19 MG/DL (30-150)
--- NOTE | 2018-12-18 07:29 | NUR ---
HAND-OFF: Report given to GRACIA Villalobos. Pt in stable condition.
[2018-12-18 08:00] VITALS: BP 105/71
--- NOTE | 2018-12-18 08:00 | NUR ---
NURSE NOTES: Patient awake and alert and oriented.Respirations unlabored.patient sitting up in bed,ate breakfast.Call light within reach.
--- NOTE | 2018-12-18 10:56 | NUR ---
P.T Note: P.T evaluation completed . Pt is baselined independent in all areas functional mobilities and gait/locomotion. Current functional status does not warrant skilled P.T service at this time. Nursing to notify P.T for any significant decline in pt's functional status warranting P.T reevaluation otherwise, DC P.T services. Thank you for this referral.
[2018-12-18 12:00] VITALS: BP 105/64
--- NOTE | 2018-12-18 12:43 | Consultation ---
History of Present Illness General Date patient seen: Dec 18, 2018 Chief Complaint: Generalized Weakness Present Illness HPI 78 year old male with hx of Emphysema, asthma, CAd, presented to ER from PMD's office with complaints increasing weakness, poor appetite, gradual weight loss. He is c/o of a few episodes of presyncope. He had a CT chest and pelvis in ER which showed new RUL nodule, 0.5 cm. He is admitted for further monitoring Allergies: Coded Allergies: IODINE (Unverified Allergy, Unknown, 09/07/15) Uncoded Allergies: SEAFOOD (Allergy, Unknown, 12/17/18) SHELLFISH (Allergy, Unknown, 12/17/18) Medication History Scheduled Fluticasone/Salmeterol (Advair 500-50 Diskus), 1 PUFF INH BID, (Reported) Montelukast Sodium* (Montelukast Sodium*), 10 MG ORAL DAILY, (Reported) Tiotropium [place]* (Spiriva*), 1 PUFF INH DAILY, (Reported) Scheduled PRN Albuterol Sulfate* (Albuterol Sulfate Hhn*), 3 ML INH Q4H PRN for Shortness of Breath, (Reported) Ipratropium/Albuterol Sulfate (Iprat-Albut 0.5-3(2.5) Mg/3 Ml), 3 ML IH Q6HR PRN for Shortness of Breath, (Reported) Discontinued Medications Acetaminophen With Codeine (T#3) (Tylenol #3 Tab*), 1 TAB ORAL Q4H PRN Discontinued Reason: Pt stopped taking med Albuterol Sulfate* (Proair Hfa*), 2 PUFFS INH Q6H, (Reported) Discontinued Reason: Pt stopped taking med Ibuprofen* (Motrin*), 600 MG ORAL FOUR TIMES A DAY Discontinued Reason: Pt stopped taking med Ipratropium [place] 0.5MG/2.5ML (Ipratropium [place] 0.5MG/2.5ML), 0.5 MG HHN Q6H PRN for Shortness of Breath, (Reported) Discontinued Reason: Pt stopped taking med Montelukast Sodium* (Montelukast Sodium*), 10 MG ORAL DAILY, (Reported) Discontinued Reason: Pt stopped taking med Prednisone* (Prednisone*), 40 MG ORAL DAILY Discontinued Reason: Pt stopped taking med Patient History Healthcare decision maker N Resuscitation status Full Code Advanced Directive on File Past Medical/Surgical History Past Medical/Surgical History: (1) COPD (chronic obstructive pulmonary disease) (2) History of smoking (3) Pulmonary nodule Review of Systems All Other Systems: negative except mentioned in HPI Physical Exam General Appearance: thin Lines, tubes and drains: peripheral HEENT: normocephalic, atraumatic Neck: non-tender, normal alignment, supple Respiratory/Chest: chest wall non-tender, lungs clear Breasts: no masses Cardiovascular/Chest: normal rate, regular rhythm Genitourinary/Rectal: normal genital exam Extremities: normal range of motion Last 24 Hour Vital Signs Date Time Temp Pulse Resp B/P (MAP) Pulse Ox O2 Delivery O2 Flow Rate FiO2 12/18/18 09:00 Room Air 12/18/18 08:00 98.1 72 18 105/71 (82) 99 12/18/18 04:00 97.7 77 17 97/60 (72) 99 12/18/18 00:00 98.5 69 17 105/48 (67) 99 12/17/18 21:00 Room Air 12/17/18 20:00 98.3 80 16 90/54 (66) 98 12/17/18 17:45 Room Air 12/17/18 16:45 97.8 85 20 97/58 (71) 100 12/17/18 16:17 98.1 74 16 118/72 100 Room Air 12/17/18 16:06 98.1 75 16 124/56 100 Room Air 12/17/18 15:09 98.1 81 16 126/73 100 Room Air 12/17/18 14:59 98.1 16 122/72 99 Room Air 12/17/18 14:59 98.1 75 16 117/73 99 Room Air 12/17/18 14:56 88 16 Room Air 12/17/18 14:56 98.1 16 118/72 99 Room Air 12/17/18 14:56 98.1 72 16 120/73 99 Room Air 12/17/18 12:45 97.9 88 16 120/73 (89) 99 Room Air Intake and Output 12/17/18 12/18/18 19:00 07:00 Intake Total 2500 ml 360 ml Balance 2500 ml 360 ml Intake Oral 500 ml 360 ml IV Total 2000 ml # Voids 1 2 # Bowel Movements 1 Laboratory Tests Test 12/17/18 13:25 12/17/18 13:35 12/18/18 05:04 Urine Color Yellow Urine Appearance Clear Urine pH 5 (4.5-8.0) Urine Specific [place] 1.025 (1.005-1.035) Urine Protein 1+ (NEGATIVE) H Urine Glucose (UA) Negative (NEGATIVE) Urine Ketones 4+ (NEGATIVE) H Urine Blood 1+ (NEGATIVE) H Urine Nitrite Negative (NEGATIVE) Urine Bilirubin Negative (NEGATIVE) Urine Urobilinogen 1 MG/DL (0.0-1.0) H Urine Leukocyte Esterase Negative (NEGATIVE) Urine RBC 0-2 /HPF (0 - 0) H Urine WBC 0-2 /HPF (0 - 0) Urine Squamous Epithelial Cells Occasional /LPF Urine Bacteria Few /HPF (NONE) Urine Mucus Few /LPF (NONE/OCC) H White Blood Count 6.4 K/UL (4.8-10.8) 5.4 K/UL (4.8-10.8) Red Blood Count 3.92 M/UL (4.70-6.10) L 3.44 M/UL (4.70-6.10) L Hemoglobin 12.0 G/DL (14.2-18.0) L 10.9 G/DL (14.2-18.0) L Hematocrit 36.8 % (42.0-52.0) L 32.0 % (42.0-52.0) L Mean Corpuscular Volume 94 FL (80-99) 93 FL (80-99) Mean Corpuscular Hemoglobin 30.7 PG (27.0-31.0) 31.6 PG (27.0-31.0) H Mean Corpuscular Hemoglobin Concent 32.7 G/DL (32.0-36.0) 34.0 G/DL (32.0-36.0) Red Cell Distribution Width 12.9 % (11.6-14.8) 13.1 % (11.6-14.8) Platelet Count 250 K/UL (150-450) 226 K/UL (150-450) Mean Platelet Volume 6.9 FL (6.5-10.1) 6.6 FL (6.5-10.1) Neutrophils (%) (Auto) 64.8 % (45.0-75.0) 47.0 % (45.0-75.0) Lymphocytes (%) (Auto) 26.3 % (20.0-45.0) 39.0 % (20.0-45.0) Monocytes (%) (Auto) 6.2 % (1.0-10.0) 7.7 % (1.0-10.0) Eosinophils (%) (Auto) 1.0 % (0.0-3.0) 5.4 % (0.0-3.0) H Basophils (%) (Auto) 1.7 % (0.0-2.0) 0.9 % (0.0-2.0) Sodium Level 144 MMOL/L (136-145) 141 MMOL/L (136-145) Potassium Level 4.1 MMOL/L (3.5-5.1) 4.3 MMOL/L (3.5-5.1) Chloride Level 105 MMOL/L (98-107) 107 MMOL/L (98-107) Carbon Dioxide Level 24 MMOL/L (21-32) 27 MMOL/L (21-32) Anion Gap 15 mmol/L (5-15) 7 mmol/L (5-15) Blood Urea Nitrogen 18 mg/dL (7-18) 18 mg/dL (7-18) Creatinine 1.2 MG/DL (0.55-1.30) 1.1 MG/DL (0.55-1.30) Estimat Glomerular Filtration Rate mL/min (>60) mL/min (>60) Glucose Level 76 MG/DL (74-106) 87 MG/DL (74-106) Calcium Level 9.5 MG/DL (8.5-10.1) 8.6 MG/DL (8.5-10.1) Total Bilirubin 0.6 MG/DL (0.2-1.0) 0.4 MG/DL (0.2-1.0) Aspartate Amino Transf (AST/SGOT) 18 U/L (15-37) 18 U/L (15-37) Alanine Aminotransferase (ALT/SGPT) 31 U/L (12-78) 27 U/L (12-78) Alkaline Phosphatase 64 U/L (46-116) 59 U/L (46-116) Total Creatine Kinase 254 U/L (26-308) Troponin I 0.000 ng/mL (0.000-0.056) Total Protein 7.3 G/DL (6.4-8.2) 6.3 G/DL (6.4-8.2) L Albumin 3.8 G/DL (3.4-5.0) 3.2 G/DL (3.4-5.0) L Globulin 3.5 g/dL 3.1 g/dL Albumin/Globulin Ratio 1.1 (1.0-2.7) 1.0 (1.0-2.7) Lipase 219 U/L (73-393) Triglycerides Level 19 MG/DL (30-150) L Cholesterol Level 188 MG/DL (< 200) LDL Cholesterol 111 mg/dL (<100) H HDL Cholesterol 70 MG/DL (40-60) H Cholesterol/HDL Ratio 2.7 (3.3-4.4) L Thyroid Stimulating Hormone (TSH) 1.145 uiU/mL (0.358-3.740) Microbiology Date/Time Source Procedure Growth Status 12/17/18 14:13 Nasal Nares - Final Complete 12/17/18 14:13 Nasal Nares - Final Complete Height (Feet): 5 Height (Inches): 7.00 Weight (Pounds): 113 Medications Current Medications Medications (Trade) Dose Ordered Sig/Gregory Route PRN Reason Start Time Stop Time Status Last Admin Dose Admin Acetaminophen (Tylenol) 650 mg Q4H PRN ORAL fever 12/17/18 14:45 01/16/19 14:44 Dextrose (Dextrose 50%) 25 ml Q30M PRN IV Hypoglycemia 12/17/18 14:45 01/16/19 14:44 Iopamidol (Isovue-300 100ml) 100 ml NOW PRN INJ Radiology Procedure 12/17/18 14:30 Lorazepam (Ativan 2mg/ml 1ml) 0.5 mg Q4H PRN IV For Anxiety 12/17/18 14:45 12/24/18 14:44 Morphine Sulfate (Morphine Sulfate) 1 mg Q4H PRN IVP For Pain 12/17/18 14:45 12/24/18 14:44 Ondansetron HCl (Zofran) 4 mg Q6H PRN IVP Nausea & Vomiting 12/17/18 14:45 01/16/19 14:44 Polyethylene Glycol (Miralax) 17 gm HSPRN PRN ORAL Constipation 12/17/18 14:45 01/16/19 14:44 Zolpidem Tartrate (Ambien) 5 mg HSPRN PRN ORAL Insomnia 12/17/18 14:45 12/24/18 14:44 Assessment/Plan Problem List: (1) Pulmonary nodule ICD Codes: R91.1 - Solitary pulmonary nodule SNOMED: 023753841 (2) Anemia ICD Codes: D64.9 - Anemia, unspecified SNOMED: 181136493 (3) Weight loss ICD Codes: R63.4 - Abnormal weight loss SNOMED: 49841704, 789417508 (4) COPD (chronic obstructive pulmonary disease) ICD Codes: J44.9 - Chronic obstructive pulmonary disease, unspecified SNOMED: 55916268 (5) Pre-syncope ICD Codes: R55 - Syncope and collapse SNOMED: 216953778 (6) History of smoking ICD Codes: Z87.891 - Personal history of nicotine dependence SNOMED: 41346057595186110 (7) Episode of generalized weakness ICD Codes: R53.1 - Weakness SNOMED: 03641899 Assessment/Plan: will contact thoracic surgeon to evaluate the nodule. It is too small for a biopsy. respiratory treatment anemia w/u check tumor markers. Nirali Sands MD Dec 18, 2018 12:43
[2018-12-18] MEDS ORDERED: Albuterol/Ipratropium 3ml neb HHN PRN (13:15)
--- NOTE | 2018-12-18 14:37 | NUR ---
Social Work This Sw received a SW notification. This Sw met with patient who remains alert/oriented x4, making his own decisions. Patient also remains independent with ADLS, ambulation and does not use any DME. 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 Patient explains he was feeling dizzy or lightheaded and has lost some weight prior to coming in. Patient is aware he needs to make more meals for himself, along with drinking more fluids. Patient explains he can arrange his own cab when ready for discharge. This SW provided information for patient regarding seeking apartments, per patient request. No other needs or concerns at this time. Patient denied any substance abuse or mental health concerns, appears to express a cheerful affect.
--- NOTE | 2018-12-18 16:35 | History & Physical ---
History and Physical History & Physicial Dictated for Int Med-DR Silva no. [id number]. Blake Collier MD Dec 18, 2018 16:35
[2018-12-18] MEDS ORDERED: Lidocaine 1% Plain 30 ml INJ PRN (16:45)
--- NOTE | 2018-12-18 19:41 | NUR ---
HAND-OFF: Report given to Yeimi FAGAN.
--- NOTE | 2018-12-18 19:48 | NUR ---
NURSE NOTES: Received patient in bed, awake, alert oriented x 4, on room air, IV site is clean dry and intact. No acute distress noted, VSS, afebrile. Call light is within reach, bed is in low mode, locked alarm is on. Will continue to monitor for comfort and safety.
[2018-12-18 20:00] VITALS: BP 99/58
[2018-12-19] VITALS (7 sets, daily range): BP systolic 103–141; BP diastolic 56–85
--- NOTE | 2018-12-19 07:30 | NUR ---
NURSE NOTES: Received patient in bed, awake,alert, oriented x 4, on room air, ambulatory. IV access is patent, clean and intact. No acute distress noted, denies of pain/discomfort noted. consent s/t/d. NPO after MN observed. Call light is within reach, bed is in lowest position. locked alarm is on. Will continue to monitor for comfort and safety.
--- NOTE | 2018-12-19 07:32 | NUR ---
HAND-OFF: Report given to Maritza TAYLOR.
[2018-12-19 07:43] LABS: INR 0.9 (0.9-1.1)
[2018-12-19 07:47] LABS: HEMATOCRIT 34.7 % (42.0-52.0); HEMOGLOBIN 11.7 G/DL (14.2-18.0); MEAN CORPUSCULAR VOLUME 93 FL (80-99); PLATELET COUNT 245 K/UL (150-450); RED BLOOD COUNT 3.72 M/UL (4.70-6.10); RED CELL DISTRIBUTION WIDTH 13.1 % (11.6-14.8); WHITE BLOOD COUNT 4.8 K/UL (4.8-10.8)
[2018-12-19 07:55] LABS: ANION GAP 8 mmol/L (5-15); BLOOD UREA NITROGEN 17 mg/dL (7-18); CARBON DIOXIDE 28 MMOL/L (21-32); CHLORIDE 107 MMOL/L (98-107); CREATININE 1.2 MG/DL (0.55-1.30); POTASSIUM 4.1 MMOL/L (3.5-5.1); SODIUM 143 MMOL/L (136-145)
[2018-12-19 08:34] LABS: LACTATE DEHYDROGENASE 180 U/L (81-234)
[2018-12-19 08:40] LABS: % IRON SATURATION 22 % (15-50); IRON 61 ug/dL (50-175); TOTAL IRON BINDING CAPACITY 274 ug/dL (250-450)
--- NOTE | 2018-12-19 09:00 | NUR ---
NURSE NOTES: patient transported for CT guided. handoff done by my CN, Carole with the transporter, Ed.
[2018-12-19] MEDS ORDERED: Lidocaine 1% Plain 30 ml INJ SCH (09:45)
--- NOTE | 2018-12-19 09:45 | NUR ---
NURSE NOTES: Arrived in CT Scan Trailer- received report from Everardo FAGAN.Patient lying comfortably in CT scanner table - V/S being monitored Q 5 min > fire investigation lieutenant shows SR- with occasional PAC's noted. Patient on room air - Sao2 100%.Patient awake and alert and oriented.
--- NOTE | 2018-12-19 10:10 | NUR ---
NURSE NOTES: Dr. Royal came to see patient- spoke with the patient that CT guided biopsy does not need to be done due to the small size of nodule. Patient sent back to the floor via margaret, awake and alert.
--- NOTE | 2018-12-19 10:28 | NUR ---
NURSE NOTES: patient back to the room resumed diet. patient ambulates. no c/o pain/discomfort noted. will cont to monitor.
--- NOTE | 2018-12-19 11:55 | History and Physical Report ---
DATE OF ADMISSION: 12/17/2018 CHIEF COMPLAINT: The patient is a 78-year-old male, who presents with a chief complaint of generalized weakness, nausea, and dizziness. HISTORY OF PRESENT ILLNESS: The patient was admitted to [facility] emergency room. The patient was admitted to [facility] in August of 2018 after syncopal episode. Please see history and physical and discharge summary dictated at that time. The patient states that he began to feel generalized weakness approximately 10 months ago. The patient has been feeling on and off vertigo. The patient also feels weak. The patient states he has episodes of nausea without vomiting. The patient was at his primary care physician's office, Dr. Kasi Silva, on December 17, 2018. The patient states he became increasingly weak. The patient thought he was going to pass out. The patient was evaluated in [facility] emergency room. The patient is admitted for near syncopal episode, generalized weakness, vertigo, and nausea without vomiting. REVIEW OF SYSTEMS: CONSTITUTIONAL: The patient complains of weight loss of approximately 40 pounds in the last year. The patient denies fevers or chills. HEENT: The patient denies ear or throat pain. The patient denies headache. CARDIOVASCULAR: The patient denies palpitations or chest pain. CHEST: The patient denies wheeze or shortness of breath. ABDOMINAL: The patient denies nausea, vomiting, diarrhea, or constipation. GENITOURINARY: The patient denies dysuria or increased frequency of urination. NEUROMUSCULAR: The patient denies seizure. The patient does complain of generalized weakness. PAST MEDICAL HISTORY: Significant for: 1. Chronic obstructive pulmonary disease. 2. Allergic rhinitis. CURRENT MEDICATIONS: 1. Advair 500/50 one puff p.o. twice daily. 2. Singulair 10 mg p.o. daily. 3. Spiriva 18 mcg 1 puff p.o. daily. ALLERGIES: Shellfish. The patient states he is allergic to iodine and shellfish. The patient also is allergic to penicillin. SOCIAL HISTORY: The patient is single and is . 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 The patient admits to tobacco use of one-quarter pack of cigarettes daily. 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 PHYSICAL EXAMINATION: VITAL SIGNS: Temperature 98.5, respirations 17, pulse 69, and blood pressure 105/48. GENERAL: The patient is a thin-appearing male, in no apparent distress. HEENT: Eyes, pupils are equal and responsive to light and accommodation. Extraocular movements are intact. NECK: Supple without lymphadenopathy. CHEST: Lungs are clear to auscultation bilaterally without wheezes or rales. CARDIOVASCULAR: Regular rhythm and rate. S1, S2 are normal without murmurs, rubs, or gallops. ABDOMEN: Soft, nontender, and nondistended. Positive bowel sounds. No evidence of hepatosplenomegaly. Currently, no rebound or guarding noted. EXTREMITIES: Negative for clubbing, cyanosis, or edema. RECTAL/GENITAL: Not performed. NEUROLOGIC: Cranial nerves II through XII are grossly intact without focal deficits. Motor strength is 5/5 bilaterally. Deep tendon reflexes are 2+ plantar. LABORATORY STUDIES: WBC 6.4, hemoglobin 12.2, hematocrit 36.8, and platelets 250,000. Sodium 144, potassium 4.1, chloride 105, CO2 24, BUN 18, creatinine 1.2, and glucose 76. Troponin 0.0. A chest x-ray was reported as no acute disease. A CT scan of the chest, abdomen, and pelvis revealed bilateral lung nodules consistent with neoplasm. ASSESSMENT: This is a 78-year-old male. 1. Near syncope. 2. Vertigo. 3. Generalized weakness. 4. Nausea. 5. Bilateral lung masses. 6. Chronic obstructive pulmonary disease. TREATMENT: 1. Near syncope/vertigo/generalized weakness. This may be secondary to neoplasm of the lung. 2. Bilateral lung masses. A Hematology/Oncology consultation has been obtained with Dr. Mcknight. The patient will require tissue diagnosis during this hospitalization. 3. Chronic obstructive pulmonary disease. A Pulmonary consultation has been obtained with Dr. Nirali Sands. Continue Advair and Singulair as above. 4. Weight loss. This may be secondary to malignancy as above. Blake Collier M.D. DR: DOROTA JOB#: [id number] CC:
--- NOTE | 2018-12-19 12:57 | Pulmonology Progress Note ---
Assessment/Plan Problems: (1) Pulmonary nodule (2) Anemia (3) Weight loss (4) COPD (chronic obstructive pulmonary disease) (5) Pre-syncope (6) History of smoking (7) Episode of generalized weakness Assessment/Plan radiology couldn't do the biopsy Thoracic surgeon called respiratory treatment symptomatic treatment. Subjective ROS Limited/Unobtainable: No Interval Events: Radiology couldn't do the biopsy Allergies: Coded Allergies: IODINE (Unverified Allergy, Unknown, 09/07/15) Uncoded Allergies: SEAFOOD (Allergy, Unknown, 12/17/18) SHELLFISH (Allergy, Unknown, 12/17/18) Objective Last 24 Hour Vital Signs Date Time Temp Pulse Resp B/P (MAP) Pulse Ox O2 Delivery O2 Flow Rate FiO2 12/19/18 12:00 98.1 72 19 117/78 (91) 99 12/19/18 09:36 78 18 12/19/18 09:00 Room Air 12/19/18 08:00 97.0 71 21 104/63 (77) 99 12/19/18 04:00 98.2 68 17 110/65 (80) 97 12/19/18 00:00 98.2 71 16 103/61 (75) 98 12/18/18 21:00 Room Air 12/18/18 20:00 98.3 68 17 99/58 (72) 97 12/18/18 19:46 68 18 96 Room Air 21 Intake and Output 12/18/18 12/19/18 19:00 07:00 Intake Total 720 ml Balance 720 ml Intake Oral 720 ml # Voids 4 3 General Appearance: WD/WN HEENT: normocephalic Respiratory/Chest: chest wall non-tender, lungs clear Cardiovascular: normal peripheral pulses, normal rate Abdomen: normal bowel sounds, soft, non tender Extremities: no cyanosis Skin: no rash Microbiology Date/Time Source Procedure Growth Status 12/17/18 14:13 Nasal Nares - Final Complete 12/17/18 14:13 Nasal Nares - Final Complete Laboratory Tests 12/19/18 06:32: White Blood Count 4.8, Red Blood Count 3.72L, Hemoglobin 11.7L, Hematocrit 34.7L , Mean Corpuscular Volume 93, Mean Corpuscular Hemoglobin 31.4H, Mean Corpuscular Hemoglobin Concent 33.6, Red Cell Distribution Width 13.1, Platelet Count 245, Mean Platelet Volume 6.7, Neutrophils (%) (Auto) , Lymphocytes (%) ( Auto) , Monocytes (%) (Auto) , Eosinophils (%) (Auto) , Basophils (%) (Auto) , Differential Total Cells Counted 100, Neutrophils % (Manual) 48, Lymphocytes % ( Manual) 44, Monocytes % (Manual) 3, Eosinophils % (Manual) 5H, Basophils % ( Manual) 0, Band Neutrophils 0, Platelet Estimate Adequate, Platelet Morphology Normal, Red Blood Cell Morphology Normal, Erythrocyte Sedimentation Rate 21H, Reticulocyte Count 0.5, Prothrombin Time 10.1, Prothromb Time International Ratio 0.9, Activated Partial Thromboplast Time 24, Sodium Level 143, Potassium Level 4.1, Chloride Level 107, Carbon Dioxide Level 28, Anion Gap 8, Blood Urea Nitrogen 17, Creatinine 1.2, Estimat Glomerular Filtration Rate , Glucose Level 92, Calcium Level 9.0, Iron Level 61, Total Iron Binding Capacity 274, Percent Iron Saturation 22, Unsaturated Iron Binding 213, Lactate Dehydrogenase 180, Carcinoembryonic Antigen [Pending], Vitamin B12 Level 1033H, Folate 16.8 Current Medications Medications (Trade) Dose Ordered Sig/Gregory Route PRN Reason Start Time Stop Time Status Last Admin Dose Admin Acetaminophen (Tylenol) 650 mg Q4H PRN ORAL fever 12/17/18 14:45 01/16/19 14:44 Albuterol/ Ipratropium (Albuterol/ Ipratropium) 3 ml Q4H PRN HHN Shortness of Breath 12/18/18 13:15 12/23/18 13:14 Dextrose (Dextrose 50%) 25 ml Q30M PRN IV Hypoglycemia 12/17/18 14:45 01/16/19 14:44 Iopamidol (Isovue-300 100ml) 100 ml NOW PRN INJ Radiology Procedure 12/17/18 14:30 Lidocaine HCl (Xylocaine 1% 30ml) 30 ml NOW PRN INJ Radiology Procedure 12/18/18 16:45 12/20/18 16:38 Lorazepam (Ativan 2mg/ml 1ml) 0.5 mg Q4H PRN IV For Anxiety 12/17/18 14:45 12/24/18 14:44 Morphine Sulfate (Morphine Sulfate) 1 mg Q4H PRN IVP For Pain 12/17/18 14:45 12/24/18 14:44 Ondansetron HCl (Zofran) 4 mg Q6H PRN IVP Nausea & Vomiting 12/17/18 14:45 01/16/19 14:44 Polyethylene Glycol (Miralax) 17 gm HSPRN PRN ORAL Constipation 12/17/18 14:45 01/16/19 14:44 Zolpidem Tartrate (Ambien) 5 mg HSPRN PRN ORAL Insomnia 12/17/18 14:45 12/24/18 14:44 Nirali Sands MD Dec 19, 2018 12:57
--- NOTE | 2018-12-19 17:13 | Diagnostic Imaging Report ---
Clinical Indication: Chest pain, left upper lobe mass Technique: Imaging done in anticipation of left upper lobe lung nodule biopsy Spiral acquisitions obtained through the chest with localizer markers in place. No IV contrast utilized, not necessary. Images were reviewed, and it was elected not to perform biopsy due to the very small size of the lesion making successful targeting and biopsy very unlikely. This was discussed with the patient. Dr. Sands also notified. Total dose length product 1324 mGycm. CTDIvol(s) 9, 9, 9, 9, 57 mGy. Dose reduction achieved using automated exposure control Comparison: 12/17/2018 Findings: Intraprocedural localizer images demonstrate 4 mm left upper lobe nodule described on prior CT scan. Impression: CT images acquired in anticipation of CT-guided biopsy, subsequently aborted due to small size of the lesion, low likelihood of success. The CT scanner at [facility] is accredited by the [employer] and the scans are performed using protocols designed to limit radiation exposure to as low as reasonably achievable to attain images of sufficient resolution adequate for diagnostic evaluation.
--- NOTE | 2018-12-19 17:28 | General Progress Note ---
Assessment/Plan Assessment/Plan: Assessment - Nausea - Weight loss - Anemia - Lung nodules, r/o CA - COPD Recommendations - pulmonary evaluation - EGD/Colon next week Thank you James López MD Subjective Allergies: Coded Allergies: IODINE (Unverified Allergy, Unknown, 09/07/15) Uncoded Allergies: SEAFOOD (Allergy, Unknown, 12/17/18) SHELLFISH (Allergy, Unknown, 12/17/18) Objective Last 24 Hour Vital Signs Date Time Temp Pulse Resp B/P (MAP) Pulse Ox O2 Delivery O2 Flow Rate FiO2 12/19/18 16:00 98.0 75 20 114/56 (75) 99 12/19/18 12:00 98.1 72 19 117/78 (91) 99 12/19/18 09:36 78 18 12/19/18 09:00 Room Air 12/19/18 08:00 97.0 71 21 104/63 (77) 99 12/19/18 07:50 84 18 98 Room Air 21 12/19/18 04:00 98.2 68 17 110/65 (80) 97 12/19/18 00:00 98.2 71 16 103/61 (75) 98 12/18/18 21:00 Room Air 12/18/18 20:00 98.3 68 17 99/58 (72) 97 12/18/18 19:46 68 18 96 Room Air 21 Intake and Output 12/18/18 12/19/18 18:59 06:59 Intake Total 720 ml Balance 720 ml Intake Oral 720 ml # Voids 4 3 Laboratory Tests 12/19/18 06:32: White Blood Count 4.8, Red Blood Count 3.72L, Hemoglobin 11.7L, Hematocrit 34.7L , Mean Corpuscular Volume 93, Mean Corpuscular Hemoglobin 31.4H, Mean Corpuscular Hemoglobin Concent 33.6, Red Cell Distribution Width 13.1, Platelet Count 245, Mean Platelet Volume 6.7, Neutrophils (%) (Auto) , Lymphocytes (%) ( Auto) , Monocytes (%) (Auto) , Eosinophils (%) (Auto) , Basophils (%) (Auto) , Differential Total Cells Counted 100, Neutrophils % (Manual) 48, Lymphocytes % ( Manual) 44, Monocytes % (Manual) 3, Eosinophils % (Manual) 5H, Basophils % ( Manual) 0, Band Neutrophils 0, Other Cell Type Pathologist review, Platelet Estimate Adequate, Platelet Morphology Normal, Red Blood Cell Morphology Normal , Erythrocyte Sedimentation Rate 21H, Reticulocyte Count 0.5, Prothrombin Time 10.1, Prothromb Time International Ratio 0.9, Activated Partial Thromboplast Time 24, Sodium Level 143, Potassium Level 4.1, Chloride Level 107, Carbon Dioxide Level 28, Anion Gap 8, Blood Urea Nitrogen 17, Creatinine 1.2, Estimat Glomerular Filtration Rate , Glucose Level 92, Calcium Level 9.0, Iron Level 61 , Total Iron Binding Capacity 274, Percent Iron Saturation 22, Unsaturated Iron Binding 213, Lactate Dehydrogenase 180, Carcinoembryonic Antigen [Pending], Vitamin B12 Level 1033H, Folate 16.8 Height (Feet): 5 Height (Inches): 7.00 Weight (Pounds): 113 James López MD Dec 19, 2018 17:28
[2018-12-19] MEDS ORDERED: Gadavist 7.5mMol/7.5ml vial IV PRN (18:00)
--- NOTE | 2018-12-19 18:01 | Internal Med Progress Note ---
Subjective Physician Name Kasi Silva Attending Physician Kasi Silva MD Current Medications Medications (Trade) Dose Ordered Sig/Gregory Route PRN Reason Start Time Stop Time Status Last Admin Dose Admin Acetaminophen (Tylenol) 650 mg Q4H PRN ORAL fever 12/17/18 14:45 01/16/19 14:44 Albuterol/ Ipratropium (Albuterol/ Ipratropium) 3 ml Q4H PRN HHN Shortness of Breath 12/18/18 13:15 12/23/18 13:14 Dextrose (Dextrose 50%) 25 ml Q30M PRN IV Hypoglycemia 12/17/18 14:45 01/16/19 14:44 Iopamidol (Isovue-300 100ml) 100 ml NOW PRN INJ Radiology Procedure 12/17/18 14:30 Lidocaine HCl (Xylocaine 1% 30ml) 30 ml NOW PRN INJ Radiology Procedure 12/18/18 16:45 12/20/18 16:38 Lorazepam (Ativan 2mg/ml 1ml) 0.5 mg Q4H PRN IV For Anxiety 12/17/18 14:45 12/24/18 14:44 Morphine Sulfate (Morphine Sulfate) 1 mg Q4H PRN IVP For Pain 12/17/18 14:45 12/24/18 14:44 Ondansetron HCl (Zofran) 4 mg Q6H PRN IVP Nausea & Vomiting 12/17/18 14:45 01/16/19 14:44 Polyethylene Glycol (Miralax) 17 gm HSPRN PRN ORAL Constipation 12/17/18 14:45 01/16/19 14:44 Polyethylene Glycol/ Electrolytes (Nulytely) 4,000 ml ONCE ORAL 12/22/18 07:00 12/22/18 23:59 Sorbitol (Sorbitol) 60 ml ONCE ORAL 12/21/18 19:00 12/21/18 20:00 Zolpidem Tartrate (Ambien) 5 mg HSPRN PRN ORAL Insomnia 12/17/18 14:45 12/24/18 14:44 Allergies: Coded Allergies: IODINE (Unverified Allergy, Unknown, 09/07/15) Uncoded Allergies: SEAFOOD (Allergy, Unknown, 12/17/18) SHELLFISH (Allergy, Unknown, 12/17/18) Subjective Awake, alert, responsive, denies any chest pain, denies any abdominal pain, denies any shortness of breath, positive poor appetite. Objective Last Vital Signs Date Time Temp Pulse Resp B/P (MAP) Pulse Ox O2 Delivery O2 Flow Rate FiO2 12/19/18 16:00 98.0 75 20 114/56 (75) 99 12/19/18 09:00 Room Air 12/19/18 07:50 21 Laboratory Tests Test 12/19/18 06:32 White Blood Count 4.8 K/UL (4.8-10.8) Red Blood Count 3.72 M/UL (4.70-6.10) L Hemoglobin 11.7 G/DL (14.2-18.0) L Hematocrit 34.7 % (42.0-52.0) L Mean Corpuscular Volume 93 FL (80-99) Mean Corpuscular Hemoglobin 31.4 PG (27.0-31.0) H Mean Corpuscular Hemoglobin Concent 33.6 G/DL (32.0-36.0) Red Cell Distribution Width 13.1 % (11.6-14.8) Platelet Count 245 K/UL (150-450) Mean Platelet Volume 6.7 FL (6.5-10.1) Neutrophils (%) (Auto) % (45.0-75.0) Lymphocytes (%) (Auto) % (20.0-45.0) Monocytes (%) (Auto) % (1.0-10.0) Eosinophils (%) (Auto) % (0.0-3.0) Basophils (%) (Auto) % (0.0-2.0) Differential Total Cells Counted 100 Neutrophils % (Manual) 48 % (45-75) Lymphocytes % (Manual) 44 % (20-45) Monocytes % (Manual) 3 % (1-10) Eosinophils % (Manual) 5 % (0-3) H Basophils % (Manual) 0 % (0-2) Band Neutrophils 0 % (0-8) Other Cell Type Pathologist review Platelet Estimate Adequate Platelet Morphology Normal Red Blood Cell Morphology Normal Erythrocyte Sedimentation Rate 21 MM/HR (0-20) H Reticulocyte Count 0.5 % (0.5-2.0) Prothrombin Time 10.1 SEC (9.30-11.50) Prothromb Time International Ratio 0.9 (0.9-1.1) Activated Partial Thromboplast Time 24 SEC (23-33) Sodium Level 143 MMOL/L (136-145) Potassium Level 4.1 MMOL/L (3.5-5.1) Chloride Level 107 MMOL/L (98-107) Carbon Dioxide Level 28 MMOL/L (21-32) Anion Gap 8 mmol/L (5-15) Blood Urea Nitrogen 17 mg/dL (7-18) Creatinine 1.2 MG/DL (0.55-1.30) Estimat Glomerular Filtration Rate mL/min (>60) Glucose Level 92 MG/DL (74-106) Calcium Level 9.0 MG/DL (8.5-10.1) Iron Level 61 ug/dL (50-175) Total Iron Binding Capacity 274 ug/dL (250-450) Percent Iron Saturation 22 % (15-50) Unsaturated Iron Binding 213 ug/dL (112-346) Lactate Dehydrogenase 180 U/L (81-234) Carcinoembryonic Antigen Pending Vitamin B12 Level 1033 PG/ML (193-986) H Folate 16.8 NG/ML (8.6-58.9) Microbiology Date/Time Source Procedure Growth Status 12/17/18 14:13 Nasal Nares - Final Complete 12/17/18 14:13 Nasal Nares - Final Complete Intake and Output 12/18/18 12/19/18 19:00 07:00 Intake Total 720 ml Balance 720 ml Intake Oral 720 ml # Voids 4 3 Objective General: No acute distress, awake and alert, cachexia and malnutrition. HEENT: NCAT, sclera anicteric, PERRL, EOMI. Neck: Supple, no significant jugular venous distention, Lungs: Good inspiratory effort, no accessory muscle use, clear to auscultation bilaterally, no Wheeze or Rales. Heart: Regular rate and rhythm, normal S1/S2, no murmur. Abdomen: soft, nontender, nondistended. Normoactive bowel sounds. / Rectal: Refused and deferred. Extremities: No Cyanosis , clubbing or edema. Neuro: A&O x 3, Able to move all extremities Skin: warm, no rashes or lesions Psych: Normal mood and affect Assessment/Plan Assessment/Plan ASSESSMENT: This is a 78-year-old male. 1. Near syncope. 2. Cachexia and severe protein calorie malnutrition 3. Generalized weakness. 4. Nausea. 5. Bilateral lung nodules possible malignancy. 6. Chronic obstructive pulmonary disease. 7. Dehydration. TREATMENT: 1. Near syncope/vertigo/generalized weakness. This may be secondary to neoplasm of the lung. 2. Bilateral lung Nodule. Follow-up with Dr. Griffin consultation from thoracic surgery. 3. Chronic obstructive pulmonary disease. A Pulmonary consultation has been obtained with Dr. Nirali Sands. Continue Advair and Singulair as above. 4. Weight loss. This may be secondary to malignancy as above. DVT prophylaxis heparin subcu, MRI of the brain with contrast, CODE STATUS full code, Follow-up with GI consultation with Dr. López EGD and colonoscopy next week. Start the patient on IV fluid at 75 cc/h. Discussed with the patient extensively with regard to the CAT scan results and treatment options. Kasi Silva MD Dec 19, 2018 18:01
--- NOTE | 2018-12-19 18:04 | NUR ---
SPEECH PATOLOGY: PATIENT CLEARED FOR ST INTERVENTION BY GRACIA SIMON DYSPHAGIA RISK FACTORS FOR THIS 78 Y.O. MALE: NEGLIGIBLE: ENDENTULOUS (DENTURES AT HOME) IMPRESSION: PATIENT PRESENTS WITH EFFICACY OF OROPHARYNGEAL PHASE OF SWALLOW INTACT. NO OVERT S/S OF ASPIRATION. ENDENTULOUS, NEEDS CURRENT DIET OF SOFT/EASY CHEW SOLIDS NO FURTHER SKILLED SPEECH THEARPY APPEARS TO BE NEEDED AT THIS TIME.
[2018-12-19] MEDS: D5 1/2NS w/KCl 20mEq 1,000 ML IV SCH (18:46)
--- NOTE | 2018-12-19 18:52 | NUR ---
NURSE NOTES: consent obtained for GI procedure this Saturday from patient. explained the current plan of care. IVF initiated and infusing well on LFA 20g will cont to monitor.
--- NOTE | 2018-12-19 19:17 | NUR ---
HAND-OFF: Report given to Edyta.
--- NOTE | 2018-12-19 20:00 | NUR ---
NURSE NOTES: received pt in bed. AAOx4 in room air. no acute distress this time. call light within reach. bed is the lowest position. will continue to provide plan of care.
--- NOTE | 2018-12-19 21:30 | Consultation ---
DATE OF CONSULTATION: 12/19/2018 GASTROENTEROLOGY CONSULTATION CONSULTING PHYSICIAN: James López M.D. CHIEF COMPLAINT: I was asked to see this patient by Dr. Kasi Silva for evaluation of anemia and weight loss. HISTORY OF PRESENT ILLNESS: The patient is a pleasant 78-year-old man, who was admitted to the hospital with multiple issues including failure to thrive, weight loss, and nausea. During the course of evaluation, he had a CT scan of the chest, abdomen, and pelvis. The chest has shown some lesions suspicious for malignancy. From abdominal standpoint however the patient does have some nausea, which is vague. He has had no vomiting, but he has had about 25-pound weight loss over the past 6 months. He thinks he may have also a component of depression. He has had a colonoscopy, but that was back at age 52 about 25 years ago. He denies any hematochezia, but he does have some anemia . PAST MEDICAL HISTORY: Remarkable for asthma, empyema, history of coronary artery disease. FAMILY HISTORY: Noncontributory. REVIEW OF SYSTEMS: Otherwise negative. MEDICATIONS: Inhalers. ALLERGIES: Shellfish. SOCIAL HISTORY: [place] The patient is . He has an extensive smoking history and also alcohol use history. PHYSICAL EXAMINATION: GENERAL: A pleasant, man, seen in his room. HEENT: Normocephalic and atraumatic. Sclerae anicteric. Oropharynx clear. NECK: Supple. CHEST: Reveals coarse breath sounds. CARDIOVASCULAR: Revealed a regular rate. ABDOMEN: Soft. Flat. Good bowel sounds. There was left inguinal hernia, which is also seen on CT scan. EXTREMITIES: Revealed no edema. LABORATORY DATA AND IMAGING STUDIES: Noted. ASSESSMENT: This patient presents with vague complaints of nausea, weight loss as well as anemia. Given his age, his weight loss, and his anemia, he is clearly a candidate for endoscopy and colonoscopy to evaluate both upper and lower GI tracts. This will be done next week. In the meantime, attention focussed on his lung findings, which show lesions, which are suspicious for lung malignancy. For now, the patient is encouraged to eat and I will follow his laboratory parameters and exam. Thank you for asking me to participate in the care of this patient. James López M.D. DR: DONTAE JOB#: [id number] CC:
--- NOTE | 2018-12-19 21:45 | Consultation ---
DATE OF CONSULTATION: 12/19/2018 CONSULTING PHYSICIAN: Malik Griffin M.D., specialty in Thoracic Surgery. REFERRING PHYSICIAN: Nirali Sands M.D. HISTORY OF PRESENT ILLNESS: The patient is a 78-year-old male who was admitted to [facility] with generalized weakness, nausea, and vomiting. Workup including a chest CT scan demonstrated multiple bilateral lung nodules and thoracic surgery was then consulted for further evaluation. PAST MEDICAL HISTORY: Notable for: 1. COPD. 2. Allergic rhinitis. PAST SURGICAL HISTORY: None. MEDICATIONS: Reviewed. ALLERGIES: He is allergic to iodine and shellfish as well as to penicillin. FAMILY AND SOCIAL HISTORY: The patient stopped smoking two years ago and has had a 30-pack years of smoking history. 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 PHYSICAL EXAMINATION: VITAL SIGNS: He is noted to be afebrile. His vitals remained within normal limits. CARDIAC: Regular rate and rhythm. No gallops or murmur. RESPIRATORY: Clear to auscultation bilaterally. ABDOMEN: Soft, nondistended, nontender with normoactive bowel sounds. EXTREMITIES: No evidence of cyanosis, clubbing, or edema. LABORATORY DATA: Laboratory study performed on 12/19/2018 showed WBC of 4.8, hemoglobin 12, hematocrit 34.7, and platelet count 247,000. Sodium is 143, potassium 4.1, chloride 107, bicarb is 28, BUN is 17, creatinine is 1.2, and glucose is 92. His PT is 10 and PTT is 24. INR is 0.9. Radiographic imaging study, a chest CT scan was performed on 12/17/2018, which demonstrated biapical scarring. There is a calcified right upper lobe granuloma, previously identified irregular right apical nodule measuring 1.8 x 1.1 cm, unchanged in size. However, there are new scattered lung nodules. There is a 4 mm right upper lobe nodule x2. In addition, there is a 7 mm left upper lobe nodule as well as a 5 mm left lower lobe nodule. ASSESSMENT AND PLAN: This is a 78-year-old male who presented with a recent incidental finding of a bilateral lung nodule of unknown etiology. The patient was evaluated at bedside. After reviewing his clinical database, I recommend either a repeat chest CT scan in three months to follow the interval growth of these lung nodules. Alternatively, the patient may be a candidate for a surgical biopsy of the left upper lobe nodule measuring 7 mm in size. At the present time, the patient wishes to consider his options. All questions were answered to his satisfaction. I want to thank you for referring this patient to my attention. If there are any questions in regards to this patient's clinical care, please do not hesitate to contact me. Newman M.D. DR: ANDERSON JOB#: [id number] CC: AMADO
[2018-12-20] VITALS: BP 118/76
[2018-12-20 04:33] VITALS: BP_SYST 110
--- NOTE | 2018-12-20 07:33 | NUR ---
HAND-OFF: Report given to Geovany FAGAN.
--- NOTE | 2018-12-20 07:38 | NUR ---
NURSE NOTES: Received pt in bed, AAO x 4. Room air. No c/o of pain/distress. IV on L AC 20g intact and patent, running D5 1/2 NS / Kcl @ 75 ml/hr. Side rails x 2. Bed in the lowest and locked. Call light within reach
[2018-12-20 08:00] VITALS: BP 130/72
[2018-12-20] MEDS: D5 1/2NS w/KCl 20mEq 1,000 ML IV SCH ×2 (08:28→22:45)
--- NOTE | 2018-12-20 09:01 | General Progress Note ---
Assessment/Plan Problem List: (1) Elevated CEA ICD Codes: R97.0 - Elevated carcinoembryonic antigen [CEA] SNOMED: 164526787 (2) COPD with acute exacerbation ICD Codes: J44.1 - Chronic obstructive pulmonary disease with (acute) exacerbation SNOMED: 774811150 (3) History of smoking ICD Codes: Z87.891 - Personal history of nicotine dependence SNOMED: 34163323551257209 (4) Anemia ICD Codes: D64.9 - Anemia, unspecified SNOMED: 645199899 (5) Weight loss ICD Codes: R63.4 - Abnormal weight loss SNOMED: 47738149, 705834259 Assessment/Plan: fu pulm for possible lung CA possible GI procedures by Dr López this week Subjective Allergies: Coded Allergies: IODINE (Unverified Allergy, Unknown, 09/07/15) Uncoded Allergies: SEAFOOD (Allergy, Unknown, 12/17/18) SHELLFISH (Allergy, Unknown, 12/17/18) Objective Last 24 Hour Vital Signs Date Time Temp Pulse Resp B/P (MAP) Pulse Ox O2 Delivery O2 Flow Rate FiO2 12/20/18 04:33 98.2 76 19 110/ 95 12/20/18 00:00 97.5 78 18 118/76 (90) 95 12/19/18 20:32 Room Air 12/19/18 20:00 97.9 75 19 103/60 (74) 96 12/19/18 16:00 98.0 75 20 114/56 (75) 99 12/19/18 12:00 98.1 72 19 117/78 (91) 99 12/19/18 09:36 78 18 12/19/18 09:00 Room Air Intake and Output 12/19/18 12/20/18 19:00 07:00 Intake Total 815 ml 2700 ml Output Total 950 ml Balance 815 ml 1750 ml Intake Oral 800 ml 800 ml IV Total 15 ml 1900 ml Output Urine Total 950 ml # Voids 3 3 # Bowel Movements 1 Height (Feet): 5 Height (Inches): 7.00 Weight (Pounds): 114 General Appearance: alert EENT: normal ENT inspection Neck: supple Cardiovascular: normal rate Respiratory/Chest: decreased breath sounds Abdomen: normal bowel sounds, non tender, soft Extremities: non-tender Jose Jimenez MD Dec 20, 2018 09:01
--- NOTE | 2018-12-20 09:46 | Pulmonology Progress Note ---
Assessment/Plan Assessment/Plan ASSESSMENT Bilateral lung nodules, highly suspicious for malignancy Weight loss COPD Anemia History of smoking Anemia syncope/generalized weakness Protein calorie malnutrition PLAN OF CARE [facility] floor IVF CT scan noted. radiology unable to do biopsy thoracic surgery evaluation appreciated recommended repeat CT scan in 3 months vs surgical biopsy pt wants to consider his options DVT prophylaxis EGD and colon next week monitor H&H with goal to keep hemoglobin above 7 check stool OB, CEA elevated 9.6 swallow and dietary eval PT eval fall precaution case discussed and evaluated by supervising physician Subjective Allergies: Coded Allergies: IODINE (Unverified Allergy, Unknown, 09/07/15) Uncoded Allergies: SEAFOOD (Allergy, Unknown, 12/17/18) SHELLFISH (Allergy, Unknown, 12/17/18) Subjective denies CP, SOB reports weight loss, poor appetite, generalized weakness Objective Last 24 Hour Vital Signs Date Time Temp Pulse Resp B/P (MAP) Pulse Ox O2 Delivery O2 Flow Rate FiO2 12/20/18 09:00 Room Air 12/20/18 08:00 98.2 70 18 130/72 (91) 96 12/20/18 04:33 98.2 76 19 110/ 95 12/20/18 00:00 97.5 78 18 118/76 (90) 95 12/19/18 20:32 Room Air 12/19/18 20:00 97.9 75 19 103/60 (74) 96 12/19/18 16:00 98.0 75 20 114/56 (75) 99 12/19/18 12:00 98.1 72 19 117/78 (91) 99 Intake and Output 12/19/18 12/20/18 19:00 07:00 Intake Total 815 ml 2700 ml Output Total 950 ml Balance 815 ml 1750 ml Intake Oral 800 ml 800 ml IV Total 15 ml 1900 ml Output Urine Total 950 ml # Voids 3 3 # Bowel Movements 1 Objective General Appearance: no acute distress, cachetic, other - A/A/O x 4 AA male in NAD HEENT: normocephalic, atraumatic, anicteric Respiratory/Chest: lungs clear, no respiratory distress, chest wall tender Cardiovascular: normal rate, no JVD Abdomen: normal bowel sounds, soft, non tender, non distended Extremities: no edema, pedal pulses normal Neurologic/Psychiatric: no motor/sensory deficits, alert Musculoskeletal: normal muscle bulk Microbiology Date/Time Source Procedure Growth Status 12/17/18 14:13 Nasal Nares - Final Complete 12/17/18 14:13 Nasal Nares - Final Complete Current Medications Medications (Trade) Dose Ordered Sig/Gregory Route PRN Reason Start Time Stop Time Status Last Admin Dose Admin Acetaminophen (Tylenol) 650 mg Q4H PRN ORAL fever 12/17/18 14:45 01/16/19 14:44 Albuterol/ Ipratropium (Albuterol/ Ipratropium) 3 ml Q4H PRN HHN Shortness of Breath 12/18/18 13:15 12/23/18 13:14 Dextrose (Dextrose 50%) 25 ml Q30M PRN IV Hypoglycemia 12/17/18 14:45 01/16/19 14:44 Dextrose/ Electrolytes 1,000 ml @ 75 mls/hr [id number] IV 12/19/18 18:00 01/18/19 17:59 12/20/18 08:28 Gadobutrol (Gadavist) 7.5 mmol NOW PRN IV Radiology Procedure 12/19/18 18:00 12/23/18 17:55 Iopamidol (Isovue-300 100ml) 100 ml NOW PRN INJ Radiology Procedure 12/17/18 14:30 Lidocaine HCl (Xylocaine 1% 30ml) 30 ml NOW PRN INJ Radiology Procedure 12/18/18 16:45 12/20/18 16:38 Lorazepam (Ativan 2mg/ml 1ml) 0.5 mg Q4H PRN IV For Anxiety 12/17/18 14:45 12/24/18 14:44 Morphine Sulfate (Morphine Sulfate) 1 mg Q4H PRN IVP For Pain 12/17/18 14:45 12/24/18 14:44 Ondansetron HCl (Zofran) 4 mg Q6H PRN IVP Nausea & Vomiting 12/17/18 14:45 01/16/19 14:44 Polyethylene Glycol (Miralax) 17 gm HSPRN PRN ORAL Constipation 12/17/18 14:45 01/16/19 14:44 Polyethylene Glycol/ Electrolytes (Nulytely) 4,000 ml ONCE ORAL 12/22/18 07:00 12/22/18 23:59 Sorbitol (Sorbitol) 60 ml ONCE ORAL 12/21/18 19:00 12/21/18 20:00 Zolpidem Tartrate (Ambien) 5 mg HSPRN PRN ORAL Insomnia 12/17/18 14:45 12/24/18 14:44 Daisy Martini NP Dec 20, 2018 09:46
[2018-12-20 12:00] VITALS: BP 110/73
--- NOTE | 2018-12-20 12:53 | NUR ---
CASE MANAGEMENT: REVIEW 78Y/MALE PRESENTED TO ED FROM HOME CC: GENERALIZED WEAKNESS . DIZZINESS SI: PULMONARY NODULE . COPD T 97.9 HR 88 RR 18 BP 120/73 SAT 99% ROOM AIR H/H 12.0/36.8 IS: NS IVF BOLUS X1 IOPAMIDOL 100ML INJ X1 BEDSIDE SWALLOW EVAL PATIENT ADMITTED TO MED/SURG UNIT 12/19/2018 DCP: PATIENT IS FROM HOME
--- NOTE | 2018-12-20 15:59 | Internal Med Progress Note ---
Subjective Date of Service: Dec 20, 2018 Physician Name Blake Collier Attending Physician Kasi Silva MD Current Medications Medications (Trade) Dose Ordered Sig/Gregory Route PRN Reason Start Time Stop Time Status Last Admin Dose Admin Acetaminophen (Tylenol) 650 mg Q4H PRN ORAL fever 12/17/18 14:45 01/16/19 14:44 Albuterol/ Ipratropium (Albuterol/ Ipratropium) 3 ml Q4H PRN HHN Shortness of Breath 12/18/18 13:15 12/23/18 13:14 Dextrose (Dextrose 50%) 25 ml Q30M PRN IV Hypoglycemia 12/17/18 14:45 01/16/19 14:44 Dextrose/ Electrolytes 1,000 ml @ 75 mls/hr [id number] IV 12/19/18 18:00 01/18/19 17:59 12/20/18 08:28 Gadobutrol (Gadavist) 7.5 mmol NOW PRN IV Radiology Procedure 12/19/18 18:00 12/23/18 17:55 Iopamidol (Isovue-300 100ml) 100 ml NOW PRN INJ Radiology Procedure 12/17/18 14:30 Lidocaine HCl (Xylocaine 1% 30ml) 30 ml NOW PRN INJ Radiology Procedure 12/18/18 16:45 12/20/18 16:38 Lorazepam (Ativan 2mg/ml 1ml) 0.5 mg Q4H PRN IV For Anxiety 12/17/18 14:45 12/24/18 14:44 Morphine Sulfate (Morphine Sulfate) 1 mg Q4H PRN IVP For Pain 12/17/18 14:45 12/24/18 14:44 Ondansetron HCl (Zofran) 4 mg Q6H PRN IVP Nausea & Vomiting 12/17/18 14:45 01/16/19 14:44 Polyethylene Glycol (Miralax) 17 gm HSPRN PRN ORAL Constipation 12/17/18 14:45 01/16/19 14:44 Polyethylene Glycol/ Electrolytes (Nulytely) 4,000 ml ONCE ORAL 12/22/18 07:00 12/22/18 23:59 Sorbitol (Sorbitol) 60 ml ONCE ORAL 12/21/18 19:00 12/21/18 20:00 Zolpidem Tartrate (Ambien) 5 mg HSPRN PRN ORAL Insomnia 12/17/18 14:45 12/24/18 14:44 Allergies: Coded Allergies: IODINE (Unverified Allergy, Unknown, 09/07/15) Uncoded Allergies: SEAFOOD (Allergy, Unknown, 12/17/18) SHELLFISH (Allergy, Unknown, 12/17/18) ROS Limited/Unobtainable: No Constitutional: Reports: no symptoms HEENT: Reports: no symptoms Cardiovascular: Reports: no symptoms Respiratory: Reports: no symptoms Genitourinary: Reports: no symptoms Neurologic/Psychiatric: Reports: no symptoms Subjective 78 YO M admitted with near syncope. Now bilateral lung masses. Cover for Int Med-Dr Silva Objective Last Vital Signs Date Time Temp Pulse Resp B/P (MAP) Pulse Ox O2 Delivery O2 Flow Rate FiO2 12/20/18 12:05 76 17 97 Room Air 21 12/20/18 12:00 97.9 110/73 (85) Laboratory Tests Test 12/20/18 09:50 Stool Occult Blood Positive (NEGATIVE) Intake and Output 12/19/18 12/20/18 19:00 07:00 Intake Total 815 ml 2700 ml Output Total 950 ml Balance 815 ml 1750 ml Intake Oral 800 ml 800 ml IV Total 15 ml 1900 ml Output Urine Total 950 ml # Voids 3 3 # Bowel Movements 1 Objective PHYSICAL EXAMINATION: GENERAL: The patient is a thin-appearing male, in no apparent distress. HEENT: Eyes, pupils are equal and responsive to light and accommodation. Extraocular movements are intact. NECK: Supple without lymphadenopathy. CHEST: Lungs are clear to auscultation bilaterally without wheezes or rales. CARDIOVASCULAR: Regular rhythm and rate. S1, S2 are normal without murmurs, rubs, or gallops. ABDOMEN: Soft, nontender, and nondistended. Positive bowel sounds. No evidence of hepatosplenomegaly. Currently, no rebound or guarding noted. EXTREMITIES: Negative for clubbing, cyanosis, or edema. RECTAL/GENITAL: Not performed. NEUROLOGIC: Cranial nerves II through XII are grossly intact without focal deficits. Motor strength is 5/5 bilaterally. Deep tendon reflexes are 2+ plantar. Assessment/Plan Assessment/Plan ASSESSMENT: This is a 78-year-old male. 1. Near syncope. 2. Vertigo. 3. Generalized weakness. 4. Nausea. 5. Bilateral lung masses. 6. Chronic obstructive pulmonary disease. TREATMENT: 1. Near syncope/vertigo/generalized weakness. This may be secondary to neoplasm of the lung. 2. Bilateral lung masses. A Hematology/Oncology consultation has been obtained with Dr. Mcknight. Masses were too small for CT guided biopsy. A CV surgery consult has been obtained with Dr Griffin. Patient is considering open biopsy 3. Chronic obstructive pulmonary disease. A Pulmonary consultation has been obtained with Dr. Nirali Sands. Continue Advair and Singulair as above. 4. Weight loss. This may be secondary to malignancy as above. A GI consultation has been obtained with Dr López. Await EGD/colonoscopy Blake Collier MD Dec 20, 2018 15:59
[2018-12-20 16:00] VITALS: BP 116/72
--- NOTE | 2018-12-20 19:12 | NUR ---
HAND-OFF: Report given to GRACIA Madison.
--- NOTE | 2018-12-20 19:43 | NUR ---
NURSE NOTES: Patient in bed awake, alert and verbally responsive. Able to make needs known. Respiration is even and unlabored. No complaint of pain or discomfort noted. Abdomen is soft and non distended. No complaint of pain or discomfort noted. call light is at bedside. Will continue plan of care.
[2018-12-20 20:00] VITALS: BP 107/57
[2018-12-21 04:00] VITALS: BP 105/66
--- NOTE | 2018-12-21 07:28 | Pulmonology Progress Note ---
Assessment/Plan Assessment/Plan ASSESSMENT Bilateral lung nodules, highly suspicious for malignancy Weight loss COPD Anemia History of smoking syncope/generalized weakness Protein calorie malnutrition PLAN OF CARE [facility] floor IVF CT scan noted. radiology unable to do biopsy thoracic surgery evaluation appreciated recommended repeat CT scan in 3 months vs surgical biopsy pt wants to consider his options , further discussed with pt - he wants first to proceed with GI workup DVT prophylaxis EGD and colon pending monitor H&H with goal to keep hemoglobin above 7 check stool OB, CEA elevated 9.6 swallow and dietary eval PT eval fall precaution case discussed and evaluated by supervising physician Subjective Allergies: Coded Allergies: IODINE (Unverified Allergy, Unknown, 09/07/15) Uncoded Allergies: SEAFOOD (Allergy, Unknown, 12/17/18) SHELLFISH (Allergy, Unknown, 12/17/18) Subjective denies CP, SOB reports weight loss, poor appetite, generalized weakness Objective Last 24 Hour Vital Signs Date Time Temp Pulse Resp B/P (MAP) Pulse Ox O2 Delivery O2 Flow Rate FiO2 12/21/18 04:00 97.8 74 18 105/66 (79) 96 12/20/18 20:24 Room Air 12/20/18 20:00 97.1 68 18 107/57 (74) 97 12/20/18 19:15 70 18 96 Room Air 21 12/20/18 16:00 97.5 66 18 116/72 (87) 100 12/20/18 12:05 76 17 97 Room Air 21 12/20/18 12:00 97.9 77 18 110/73 (85) 100 12/20/18 09:00 Room Air 12/20/18 08:00 98.2 70 18 130/72 (91) 96 Intake and Output 12/20/18 12/21/18 19:00 07:00 Intake Total 1870 ml 1600 ml Balance 1870 ml 1600 ml Intake Oral 1120 ml 1000 ml IV Total 750 ml 600 ml # Voids 8 5 # Bowel Movements 2 Objective General Appearance: no acute distress, cachetic, - A/A/O x 4 AA male in NAD HEENT: normocephalic, atraumatic, anicteric Respiratory/Chest: lungs clear, no respiratory distress, chest wall tender Cardiovascular: normal rate, no JVD Abdomen: normal bowel sounds, soft, non tender, non distended Extremities: no edema, pedal pulses normal Neurologic/Psychiatric: no motor/sensory deficits, alert Musculoskeletal: normal muscle bulk Laboratory Tests 12/20/18 09:50: Stool Occult Blood Positive Current Medications Medications (Trade) Dose Ordered Sig/Gregory Route PRN Reason Start Time Stop Time Status Last Admin Dose Admin Acetaminophen (Tylenol) 650 mg Q4H PRN ORAL fever 12/17/18 14:45 01/16/19 14:44 Albuterol/ Ipratropium (Albuterol/ Ipratropium) 3 ml Q4H PRN HHN Shortness of Breath 12/18/18 13:15 12/23/18 13:14 Dextrose (Dextrose 50%) 25 ml Q30M PRN IV Hypoglycemia 12/17/18 14:45 01/16/19 14:44 Dextrose/ Electrolytes 1,000 ml @ 75 mls/hr [id number] IV 12/19/18 18:00 01/18/19 17:59 12/20/18 22:45 Gadobutrol (Gadavist) 7.5 mmol NOW PRN IV Radiology Procedure 12/19/18 18:00 12/23/18 17:55 Iopamidol (Isovue-300 100ml) 100 ml NOW PRN INJ Radiology Procedure 12/17/18 14:30 Lorazepam (Ativan 2mg/ml 1ml) 0.5 mg Q4H PRN IV For Anxiety 12/17/18 14:45 12/24/18 14:44 Morphine Sulfate (Morphine Sulfate) 1 mg Q4H PRN IVP For Pain 12/17/18 14:45 12/24/18 14:44 Ondansetron HCl (Zofran) 4 mg Q6H PRN IVP Nausea & Vomiting 12/17/18 14:45 01/16/19 14:44 Polyethylene Glycol (Miralax) 17 gm HSPRN PRN ORAL Constipation 12/17/18 14:45 01/16/19 14:44 Polyethylene Glycol/ Electrolytes (Nulytely) 4,000 ml ONCE ORAL 12/22/18 07:00 12/22/18 23:59 Sorbitol (Sorbitol) 60 ml ONCE ORAL 12/21/18 19:00 12/21/18 20:00 Zolpidem Tartrate (Ambien) 5 mg HSPRN PRN ORAL Insomnia 12/17/18 14:45 12/24/18 14:44 Daisy Martini NP Dec 21, 2018 07:28
--- NOTE | 2018-12-21 07:31 | NUR ---
HAND-OFF: Report given to GRACIA Senior.
--- NOTE | 2018-12-21 07:47 | NUR ---
NURSE NOTES: pt awake, A/O x 4, calm and cooperative. Denies pain, no SOB noted, tolerating diet well. no N/V. call light within reach. bed in low position, bed alarm on. fall precaution maintained . will continue to monitor.
[2018-12-21 08:00] VITALS: BP 135/83
[2018-12-21 08:11] LABS: BASOPHILS % (AUTO) 1.7 % (0.0-2.0); EOSINOPHILS % (AUTO) 6.6 % (0.0-3.0); HEMATOCRIT 41.4 % (42.0-52.0); HEMOGLOBIN 13.9 G/DL (14.2-18.0); LYMPHOCYTES % (AUTO) 33.4 % (20.0-45.0); MEAN CORPUSCULAR VOLUME 93 FL (80-99); MONOCYTES % (AUTO) 6.3 % (1.0-10.0); PLATELET COUNT 262 K/UL (150-450); RED BLOOD COUNT 4.44 M/UL (4.70-6.10); RED CELL DISTRIBUTION WIDTH 13.5 % (11.6-14.8); WHITE BLOOD COUNT 5.4 K/UL (4.8-10.8)
[2018-12-21 08:37] LABS: ANION GAP 9 mmol/L (5-15); BLOOD UREA NITROGEN 20 mg/dL (7-18); CALCIUM 9.7 MG/DL (8.5-10.1); CARBON DIOXIDE 29 MMOL/L (21-32); CHLORIDE 104 MMOL/L (98-107); CREATININE 1.1 MG/DL (0.55-1.30); POTASSIUM 4.4 MMOL/L (3.5-5.1); SODIUM 142 MMOL/L (136-145)
[2018-12-21] MEDS: D5 1/2NS w/KCl 20mEq 1,000 ML IV SCH ×2 (10:00→23:32)
--- NOTE | 2018-12-21 10:59 | General Progress Note ---
Assessment/Plan Problem List: (1) Elevated CEA ICD Codes: R97.0 - Elevated carcinoembryonic antigen [CEA] SNOMED: 837078050 (2) COPD with acute exacerbation ICD Codes: J44.1 - Chronic obstructive pulmonary disease with (acute) exacerbation SNOMED: 572974315 (3) History of smoking ICD Codes: Z87.891 - Personal history of nicotine dependence SNOMED: 61557459357021142 (4) Anemia ICD Codes: D64.9 - Anemia, unspecified SNOMED: 313840767 (5) Weight loss ICD Codes: R63.4 - Abnormal weight loss SNOMED: 72207921, 233824203 Assessment/Plan: fu pulm for possible lung CA stool ob positive possible GI procedures by Dr López this week Subjective ROS Limited/Unobtainable: Yes Allergies: Coded Allergies: IODINE (Unverified Allergy, Unknown, 09/07/15) Uncoded Allergies: SEAFOOD (Allergy, Unknown, 12/17/18) SHELLFISH (Allergy, Unknown, 12/17/18) Objective Last 24 Hour Vital Signs Date Time Temp Pulse Resp B/P (MAP) Pulse Ox O2 Delivery O2 Flow Rate FiO2 12/21/18 09:00 Room Air 12/21/18 08:00 97.0 86 19 135/83 (100) 100 12/21/18 04:00 97.8 74 18 105/66 (79) 96 12/20/18 20:24 Room Air 12/20/18 20:00 97.1 68 18 107/57 (74) 97 12/20/18 19:15 70 18 96 Room Air 21 12/20/18 16:00 97.5 66 18 116/72 (87) 100 12/20/18 12:05 76 17 97 Room Air 21 12/20/18 12:00 97.9 77 18 110/73 (85) 100 Intake and Output 12/20/18 12/21/18 19:00 07:00 Intake Total 1870 ml 1600 ml Balance 1870 ml 1600 ml Intake Oral 1120 ml 1000 ml IV Total 750 ml 600 ml # Voids 8 5 # Bowel Movements 2 Laboratory Tests 12/21/18 07:50: White Blood Count 5.4, Red Blood Count 4.44L, Hemoglobin 13.9L, Hematocrit 41.4L , Mean Corpuscular Volume 93, Mean Corpuscular Hemoglobin 31.4H, Mean Corpuscular Hemoglobin Concent 33.6, Red Cell Distribution Width 13.5, Platelet Count 262, Mean Platelet Volume 6.4L, Neutrophils (%) (Auto) 52.0, Lymphocytes ( %) (Auto) 33.4, Monocytes (%) (Auto) 6.3, Eosinophils (%) (Auto) 6.6H, Basophils (%) (Auto) 1.7, Sodium Level 142, Potassium Level 4.4, Chloride Level 104, Carbon Dioxide Level 29, Anion Gap 9, Blood Urea Nitrogen 20H, Creatinine 1.1, Estimat Glomerular Filtration Rate , Glucose Level 98, Calcium Level 9.7 Height (Feet): 5 Height (Inches): 7.00 Weight (Pounds): 114 General Appearance: alert EENT: normal ENT inspection Neck: supple Cardiovascular: normal rate Respiratory/Chest: lungs clear Abdomen: normal bowel sounds, non tender, soft Extremities: non-tender Jose Jimenez MD Dec 21, 2018 10:59
[2018-12-21 12:00] VITALS: BP 132/87
[2018-12-21 16:00] VITALS: BP 100/58
--- NOTE | 2018-12-21 16:57 | Internal Med Progress Note ---
Subjective Date of Service: Dec 21, 2018 Physician Name Blake Collier Attending Physician Kasi Silva MD Current Medications Medications (Trade) Dose Ordered Sig/Gregory Route PRN Reason Start Time Stop Time Status Last Admin Dose Admin Acetaminophen (Tylenol) 650 mg Q4H PRN ORAL fever 12/17/18 14:45 01/16/19 14:44 Albuterol/ Ipratropium (Albuterol/ Ipratropium) 3 ml Q4H PRN HHN Shortness of Breath 12/18/18 13:15 12/23/18 13:14 Dextrose (Dextrose 50%) 25 ml Q30M PRN IV Hypoglycemia 12/17/18 14:45 01/16/19 14:44 Dextrose/ Electrolytes 1,000 ml @ 75 mls/hr [id number] IV 12/19/18 18:00 01/18/19 17:59 12/21/18 10:00 Gadobutrol (Gadavist) 7.5 mmol NOW PRN IV Radiology Procedure 12/19/18 18:00 12/23/18 17:55 Iopamidol (Isovue-300 100ml) 100 ml NOW PRN INJ Radiology Procedure 12/17/18 14:30 Lorazepam (Ativan 2mg/ml 1ml) 0.5 mg Q4H PRN IV For Anxiety 12/17/18 14:45 12/24/18 14:44 Morphine Sulfate (Morphine Sulfate) 1 mg Q4H PRN IVP For Pain 12/17/18 14:45 12/24/18 14:44 Ondansetron HCl (Zofran) 4 mg Q6H PRN IVP Nausea & Vomiting 12/17/18 14:45 01/16/19 14:44 Polyethylene Glycol (Miralax) 17 gm HSPRN PRN ORAL Constipation 12/17/18 14:45 01/16/19 14:44 Polyethylene Glycol/ Electrolytes (Nulytely) 4,000 ml ONCE ORAL 12/22/18 07:00 12/22/18 23:59 Sorbitol (Sorbitol) 60 ml ONCE ORAL 12/21/18 19:00 12/21/18 20:00 Zolpidem Tartrate (Ambien) 5 mg HSPRN PRN ORAL Insomnia 12/17/18 14:45 12/24/18 14:44 Allergies: Coded Allergies: IODINE (Unverified Allergy, Unknown, 09/07/15) Uncoded Allergies: SEAFOOD (Allergy, Unknown, 12/17/18) SHELLFISH (Allergy, Unknown, 12/17/18) ROS Limited/Unobtainable: No Constitutional: Reports: no symptoms HEENT: Reports: no symptoms Cardiovascular: Reports: no symptoms Respiratory: Reports: no symptoms Gastrointestinal/Abdominal: Reports: no symptoms Genitourinary: Reports: no symptoms Neurologic/Psychiatric: Reports: no symptoms Subjective 78 YO M admitted with near syncope. Now bilateral lung masses. Cover for Int Red-Dr Silva Objective Last Vital Signs Date Time Temp Pulse Resp B/P (MAP) Pulse Ox O2 Delivery O2 Flow Rate FiO2 12/21/18 16:00 97.8 72 20 100/58 (72) 100 12/21/18 09:00 Room Air 12/20/18 19:15 21 Laboratory Tests Test 12/21/18 07:50 White Blood Count 5.4 K/UL (4.8-10.8) Red Blood Count 4.44 M/UL (4.70-6.10) L Hemoglobin 13.9 G/DL (14.2-18.0) L Hematocrit 41.4 % (42.0-52.0) L Mean Corpuscular Volume 93 FL (80-99) Mean Corpuscular Hemoglobin 31.4 PG (27.0-31.0) H Mean Corpuscular Hemoglobin Concent 33.6 G/DL (32.0-36.0) Red Cell Distribution Width 13.5 % (11.6-14.8) Platelet Count 262 K/UL (150-450) Mean Platelet Volume 6.4 FL (6.5-10.1) L Neutrophils (%) (Auto) 52.0 % (45.0-75.0) Lymphocytes (%) (Auto) 33.4 % (20.0-45.0) Monocytes (%) (Auto) 6.3 % (1.0-10.0) Eosinophils (%) (Auto) 6.6 % (0.0-3.0) H Basophils (%) (Auto) 1.7 % (0.0-2.0) Sodium Level 142 MMOL/L (136-145) Potassium Level 4.4 MMOL/L (3.5-5.1) Chloride Level 104 MMOL/L (98-107) Carbon Dioxide Level 29 MMOL/L (21-32) Anion Gap 9 mmol/L (5-15) Blood Urea Nitrogen 20 mg/dL (7-18) H Creatinine 1.1 MG/DL (0.55-1.30) Estimat Glomerular Filtration Rate mL/min (>60) Glucose Level 98 MG/DL (74-106) Calcium Level 9.7 MG/DL (8.5-10.1) Intake and Output 12/20/18 12/21/18 19:00 07:00 Intake Total 1870 ml 1600 ml Balance 1870 ml 1600 ml Intake Oral 1120 ml 1000 ml IV Total 750 ml 600 ml # Voids 8 5 # Bowel Movements 2 Objective PHYSICAL EXAMINATION: GENERAL: The patient is a thin-appearing male, in no apparent distress. HEENT: Eyes, pupils are equal and responsive to light and accommodation. Extraocular movements are intact. NECK: Supple without lymphadenopathy. CHEST: Lungs are clear to auscultation bilaterally without wheezes or rales. CARDIOVASCULAR: Regular rhythm and rate. S1, S2 are normal without murmurs, rubs, or gallops. ABDOMEN: Soft, nontender, and nondistended. Positive bowel sounds. No evidence of hepatosplenomegaly. Currently, no rebound or guarding noted. EXTREMITIES: Negative for clubbing, cyanosis, or edema. RECTAL/GENITAL: Not performed. NEUROLOGIC: Cranial nerves II through XII are grossly intact without focal deficits. Motor strength is 5/5 bilaterally. Deep tendon reflexes are 2+ plantar. Assessment/Plan Assessment/Plan ASSESSMENT: This is a 78-year-old male. 1. Near syncope. 2. Vertigo. 3. Generalized weakness. 4. Nausea. 5. Bilateral lung masses. 6. Chronic obstructive pulmonary disease. TREATMENT: 1. Near syncope/vertigo/generalized weakness. This may be secondary to neoplasm of the lung. 2. Bilateral lung masses. A Hematology/Oncology consultation has been obtained with Dr. Mcknight. Masses were too small for CT guided biopsy. A CV surgery consult has been obtained with Dr Griffin. Patient is considering open biopsy 3. Chronic obstructive pulmonary disease. A Pulmonary consultation has been obtained with Dr. Nirali Sands. Continue Advair and Singulair as above. 4. Weight loss. This may be secondary to malignancy as above. A GI consultation has been obtained with Dr López. Await EGD/colonoscopy Blake Collier MD Dec 21, 2018 16:57
[2018-12-21] MEDS ORDERED: Sorbitol Solution UD 30ml ORAL SCH (19:00)
--- NOTE | 2018-12-21 19:21 | NUR ---
HAND-OFF: Report given to Teresita FAGAN.
--- NOTE | 2018-12-21 19:58 | NUR ---
NURSE NOTES: Patient in bed, awake, alert and verbally responsive. No complaint of pain or discomfort noted. Skin is warm and dry to touch. Abdomen is soft and non distended. IV site noted. Kept clean and comfortable. Provided safe environment. call light is at bedside. Will continue plan of care.
[2018-12-21 20:00] VITALS: BP 116/63
[2018-12-22] VITALS: BP 113/67
[2018-12-22 04:00] VITALS: BP 109/51
[2018-12-22] MEDS ORDERED: Nulytely 4L ORAL SCH (07:00)
--- NOTE | 2018-12-22 07:15 | NUR ---
HAND-OFF: Report given to Deuce Claudio.
[2018-12-22 07:39] LABS: BASOPHILS % (AUTO) 1.4 % (0.0-2.0); EOSINOPHILS % (AUTO) 6.5 % (0.0-3.0); HEMATOCRIT 40.1 % (42.0-52.0); HEMOGLOBIN 13.3 G/DL (14.2-18.0); LYMPHOCYTES % (AUTO) 33.9 % (20.0-45.0); MEAN CORPUSCULAR VOLUME 93 FL (80-99); MONOCYTES % (AUTO) 8.2 % (1.0-10.0); PLATELET COUNT 261 K/UL (150-450); RED CELL DISTRIBUTION WIDTH 13.6 % (11.6-14.8); WHITE BLOOD COUNT 5.6 K/UL (4.8-10.8)
--- NOTE | 2018-12-22 07:44 | NUR ---
NURSE NOTES: pt awake, A/O x 4, calm and cooperative. denies pain. pts on IVF. tolerating diet well. pt refused EGD and Colonoscopy schedule 12/23/2018, will notify MD. call light within reach, bed alarm on. fall precaution maintained. will continue to monitor.
--- NOTE | 2018-12-22 07:54 | NUR ---
NURSE NOTES: Left message to dr Rodriguez regarding pts EGD/Colonoscopy, pt refuses, waiting for call back.
[2018-12-22 07:55] LABS: ANION GAP 6 mmol/L (5-15); BLOOD UREA NITROGEN 23 mg/dL (7-18); CALCIUM 9.5 MG/DL (8.5-10.1); CARBON DIOXIDE 28 MMOL/L (21-32); CHLORIDE 103 MMOL/L (98-107); CREATININE 1.1 MG/DL (0.55-1.30); POTASSIUM 4.6 MMOL/L (3.5-5.1); SODIUM 137 MMOL/L (136-145)
[2018-12-22 08:00] VITALS: BP 131/78
--- NOTE | 2018-12-22 11:03 | NUR ---
RD ASSESSMENT & RECOMMENDATIONS SEE CARE ACTIVITY FOR COMPLETE ASSESSMENT DAILY ESTIMATED NEEDS: Needs based on Underweight, wt loss/ 50.7kg 30-35 kcals/kg 4993-3330 total kcals 1-1.5 g protein/kg 51-76 g total protein 25-30 mL/kg 1111-8887 total fluid mLs Gabe count x 48 hrs completed, only 3 out of 6 data available for review. Per EMR, pt consuming 100% of all meals. 12/18 breakfast: non-selective menu, 100% (meal items not specified) 12/19 lunch: 100% of all food items -> minestrone soup, chicken cacciatore, strawberry ice cream, dinner roll, ice tea, ensure enlive dinner: 100% of all food items -> vegetable soup, mashed potatoes w/ gravy, beef tips, dinner roll, ice cream, ice tea, ensure enlive RESULTS: Based on gabe count data/ EMR % intake available, pt is eating 100% of all meals + 8oz Ensure TID w/ meals. Ensure Enlive TID alone provides 1050kcal/ 60g prot per day. In addition to Ensure Enlive, pt has been consuming 100% of all meals, approximately consuming 1800-2000kcal per day from meals. It appears that pt is easily consuming > 2000 kcal a day, meeting est kcal needs for wt gain. Rec to continue snacks in b/w meals and Ensure Enlive TID w/ meals. Monitor for continued good PO intake. NUTRITION DIAGNOSIS: Increased kcal/prot intake needs R/T recent significant weight loss, underweight status as evidenced by pt w/ possible significant wt loss of 18.5lbs/14% in ~10 months, pt @ 75% IBW w/ BMI of 17.5. CURRENT DIET:REGULAR, soft easy chew PO DIET RECOMMENDATIONS: REGULAR/ texture as tolerated ADDITIONAL RECOMMENDATIONS: * Standing weight for accurate CBW, weekly wt monitoring -> CALIBRATED BEDSCALE WT ON 12/22: 52kg (114.4lbs) * Continue Snacks BID in bw/ meals * Continue Ensure Enlive TID w/ meals * Pt w/ poor dentition: con't w/ soft easy chew texture, monitor tolerance * Monitor for continued good PO intake
[2018-12-22 12:00] VITALS: BP 109/68
--- NOTE | 2018-12-22 12:35 | Pulmonology Progress Note ---
Assessment/Plan Problems: (1) Pulmonary nodule (2) Anemia (3) Weight loss (4) COPD (chronic obstructive pulmonary disease) (5) Pre-syncope (6) History of smoking (7) Episode of generalized weakness Assessment/Plan radiology couldn't do the biopsy pt doesn't want any procedures now respiratory treatment symptomatic treatment. will dc with close f/u with PMD, CT chest or PET study as outpatient Subjective ROS Limited/Unobtainable: No Constitutional: Reports: no symptoms HEENT: Repors: no symptoms Respiratory: Reports: no symptoms Cardiovascular: Reports: no symptoms Allergies: Coded Allergies: IODINE (Unverified Allergy, Unknown, 09/07/15) Uncoded Allergies: SEAFOOD (Allergy, Unknown, 12/17/18) SHELLFISH (Allergy, Unknown, 12/17/18) Objective Last 24 Hour Vital Signs Date Time Temp Pulse Resp B/P (MAP) Pulse Ox O2 Delivery O2 Flow Rate FiO2 12/22/18 09:00 Room Air 12/22/18 08:35 71 18 98 Room Air 21 12/22/18 08:00 98.0 68 18 131/78 (95) 98 12/22/18 04:00 97.5 63 20 109/51 (70) 100 12/22/18 00:00 97.3 68 19 113/67 (82) 97 12/21/18 20:40 Room Air 12/21/18 20:29 69 18 97 Room Air 21 12/21/18 20:00 97.9 70 19 116/63 (80) 99 12/21/18 16:00 97.8 72 20 100/58 (72) 100 Intake and Output 12/21/18 12/22/18 19:00 07:00 Intake Total 1825 ml 2675 ml Output Total 950 ml Balance 1825 ml 1725 ml Intake Oral 1000 ml 1000 ml IV Total 825 ml 1675 ml Output Urine Total 950 ml # Voids 6 6 # Bowel Movements 1 1 General Appearance: WD/WN HEENT: normocephalic, atraumatic Respiratory/Chest: chest wall non-tender, lungs clear Cardiovascular: normal peripheral pulses, normal rate Abdomen: normal bowel sounds, no organomegaly Extremities: no cyanosis Skin: no rash Laboratory Tests 12/22/18 06:52: White Blood Count 5.6, Red Blood Count 4.30L, Hemoglobin 13.3L, Hematocrit 40.1L , Mean Corpuscular Volume 93, Mean Corpuscular Hemoglobin 31.0, Mean Corpuscular Hemoglobin Concent 33.2, Red Cell Distribution Width 13.6, Platelet Count 261, Mean Platelet Volume 7.1, Neutrophils (%) (Auto) 50.0, Lymphocytes (% ) (Auto) 33.9, Monocytes (%) (Auto) 8.2, Eosinophils (%) (Auto) 6.5H, Basophils (%) (Auto) 1.4, Sodium Level 137, Potassium Level 4.6, Chloride Level 103, Carbon Dioxide Level 28, Anion Gap 6, Blood Urea Nitrogen 23H, Creatinine 1.1, Estimat Glomerular Filtration Rate , Glucose Level 86, Calcium Level 9.5 Current Medications Medications (Trade) Dose Ordered Sig/Gregory Route PRN Reason Start Time Stop Time Status Last Admin Dose Admin Acetaminophen (Tylenol) 650 mg Q4H PRN ORAL fever 12/17/18 14:45 01/16/19 14:44 Albuterol/ Ipratropium (Albuterol/ Ipratropium) 3 ml Q4H PRN HHN Shortness of Breath 12/18/18 13:15 12/23/18 13:14 Dextrose (Dextrose 50%) 25 ml Q30M PRN IV Hypoglycemia 12/17/18 14:45 01/16/19 14:44 Dextrose/ Electrolytes 1,000 ml @ 75 mls/hr [id number] IV 12/19/18 18:00 01/18/19 17:59 12/21/18 23:32 Gadobutrol (Gadavist) 7.5 mmol NOW PRN IV Radiology Procedure 12/19/18 18:00 12/23/18 17:55 Iopamidol (Isovue-300 100ml) 100 ml NOW PRN INJ Radiology Procedure 12/17/18 14:30 Lorazepam (Ativan 2mg/ml 1ml) 0.5 mg Q4H PRN IV For Anxiety 12/17/18 14:45 12/24/18 14:44 Morphine Sulfate (Morphine Sulfate) 1 mg Q4H PRN IVP For Pain 12/17/18 14:45 12/24/18 14:44 Ondansetron HCl (Zofran) 4 mg Q6H PRN IVP Nausea & Vomiting 12/17/18 14:45 01/16/19 14:44 Polyethylene Glycol (Miralax) 17 gm HSPRN PRN ORAL Constipation 12/17/18 14:45 01/16/19 14:44 Zolpidem Tartrate (Ambien) 5 mg HSPRN PRN ORAL Insomnia 12/17/18 14:45 12/24/18 14:44 Nirali Sands MD Dec 22, 2018 12:35
[2018-12-22] MEDS: D5 1/2NS w/KCl 20mEq 1,000 ML IV SCH (13:06)
--- NOTE | 2018-12-22 13:24 | NUR ---
NURSE NOTES: Received order to DC pt home. pt stable condition, VS stable. denies pain, no SOB noted. tolerating diet well. no N/V. IV removed, belongings with pt. discharge instruction given, verbalize understanding. pt refused to call family, they out of town. waiting for taxi to pick him up.
--- NOTE | 2018-12-22 13:39 | Cardiology Report ---
APPROVED REPORT EKG Measurement Heart [id number] Normal sinus rhythm Septal infarct, age undetermined Abnormal ECG
--- NOTE | 2018-12-22 13:59 | Internal Med Progress Note ---
Subjective Date of Service: Dec 22, 2018 Physician Name Blake Collier Attending Physician Kasi Silva MD Current Medications Medications (Trade) Dose Ordered Sig/Gregory Route PRN Reason Start Time Stop Time Status Last Admin Dose Admin Acetaminophen (Tylenol) 650 mg Q4H PRN ORAL fever 12/17/18 14:45 01/16/19 14:44 Albuterol/ Ipratropium (Albuterol/ Ipratropium) 3 ml Q4H PRN HHN Shortness of Breath 12/18/18 13:15 12/23/18 13:14 Dextrose (Dextrose 50%) 25 ml Q30M PRN IV Hypoglycemia 12/17/18 14:45 01/16/19 14:44 Dextrose/ Electrolytes 1,000 ml @ 75 mls/hr [id number] IV 12/19/18 18:00 01/18/19 17:59 12/22/18 13:06 Gadobutrol (Gadavist) 7.5 mmol NOW PRN IV Radiology Procedure 12/19/18 18:00 12/23/18 17:55 Iopamidol (Isovue-300 100ml) 100 ml NOW PRN INJ Radiology Procedure 12/17/18 14:30 Lorazepam (Ativan 2mg/ml 1ml) 0.5 mg Q4H PRN IV For Anxiety 12/17/18 14:45 12/24/18 14:44 Morphine Sulfate (Morphine Sulfate) 1 mg Q4H PRN IVP For Pain 12/17/18 14:45 12/24/18 14:44 Ondansetron HCl (Zofran) 4 mg Q6H PRN IVP Nausea & Vomiting 12/17/18 14:45 01/16/19 14:44 Polyethylene Glycol (Miralax) 17 gm HSPRN PRN ORAL Constipation 12/17/18 14:45 01/16/19 14:44 Zolpidem Tartrate (Ambien) 5 mg HSPRN PRN ORAL Insomnia 12/17/18 14:45 12/24/18 14:44 Allergies: Coded Allergies: IODINE (Unverified Allergy, Unknown, 09/07/15) Uncoded Allergies: SEAFOOD (Allergy, Unknown, 12/17/18) SHELLFISH (Allergy, Unknown, 12/17/18) ROS Limited/Unobtainable: No Constitutional: Reports: weakness HEENT: Reports: no symptoms Cardiovascular: Reports: no symptoms Respiratory: Reports: no symptoms Gastrointestinal/Abdominal: Reports: no symptoms Genitourinary: Reports: no symptoms Subjective 78 YO M admitted with near syncope. Now bilateral lung masses. Cover for Int Red-Dr Silva Objective Last Vital Signs Date Time Temp Pulse Resp B/P (MAP) Pulse Ox O2 Delivery O2 Flow Rate FiO2 12/22/18 12:00 97.5 67 18 109/68 (82) 98 12/22/18 09:00 Room Air 12/22/18 08:35 21 Laboratory Tests Test 12/22/18 06:52 White Blood Count 5.6 K/UL (4.8-10.8) Red Blood Count 4.30 M/UL (4.70-6.10) L Hemoglobin 13.3 G/DL (14.2-18.0) L Hematocrit 40.1 % (42.0-52.0) L Mean Corpuscular Volume 93 FL (80-99) Mean Corpuscular Hemoglobin 31.0 PG (27.0-31.0) Mean Corpuscular Hemoglobin Concent 33.2 G/DL (32.0-36.0) Red Cell Distribution Width 13.6 % (11.6-14.8) Platelet Count 261 K/UL (150-450) Mean Platelet Volume 7.1 FL (6.5-10.1) Neutrophils (%) (Auto) 50.0 % (45.0-75.0) Lymphocytes (%) (Auto) 33.9 % (20.0-45.0) Monocytes (%) (Auto) 8.2 % (1.0-10.0) Eosinophils (%) (Auto) 6.5 % (0.0-3.0) H Basophils (%) (Auto) 1.4 % (0.0-2.0) Sodium Level 137 MMOL/L (136-145) Potassium Level 4.6 MMOL/L (3.5-5.1) Chloride Level 103 MMOL/L (98-107) Carbon Dioxide Level 28 MMOL/L (21-32) Anion Gap 6 mmol/L (5-15) Blood Urea Nitrogen 23 mg/dL (7-18) H Creatinine 1.1 MG/DL (0.55-1.30) Estimat Glomerular Filtration Rate mL/min (>60) Glucose Level 86 MG/DL (74-106) Calcium Level 9.5 MG/DL (8.5-10.1) Intake and Output 12/21/18 12/22/18 19:00 07:00 Intake Total 1825 ml 2675 ml Output Total 950 ml Balance 1825 ml 1725 ml Intake Oral 1000 ml 1000 ml IV Total 825 ml 1675 ml Output Urine Total 950 ml # Voids 6 6 # Bowel Movements 1 1 Objective PHYSICAL EXAMINATION: GENERAL: The patient is a thin-appearing male, in no apparent distress. HEENT: Eyes, pupils are equal and responsive to light and accommodation. Extraocular movements are intact. NECK: Supple without lymphadenopathy. CHEST: Lungs are clear to auscultation bilaterally without wheezes or rales. CARDIOVASCULAR: Regular rhythm and rate. S1, S2 are normal without murmurs, rubs, or gallops. ABDOMEN: Soft, nontender, and nondistended. Positive bowel sounds. No evidence of hepatosplenomegaly. Currently, no rebound or guarding noted. EXTREMITIES: Negative for clubbing, cyanosis, or edema. RECTAL/GENITAL: Not performed. NEUROLOGIC: Cranial nerves II through XII are grossly intact without focal deficits. Motor strength is 5/5 bilaterally. Deep tendon reflexes are 2+ plantar. Assessment/Plan Assessment/Plan ASSESSMENT: This is a 78-year-old male. 1. Near syncope. 2. Vertigo. 3. Generalized weakness. 4. Nausea. 5. Bilateral lung masses. 6. Chronic obstructive pulmonary disease. TREATMENT: 1. Near syncope/vertigo/generalized weakness. This may be secondary to neoplasm of the lung. 2. Bilateral lung masses. A Hematology/Oncology consultation has been obtained with Dr. Mcknight. Masses were too small for CT guided biopsy. A CV surgery consult has been obtained with Dr Griffin. Patient is considering open biopsy 3. Chronic obstructive pulmonary disease. A Pulmonary consultation has been obtained with Dr. Nirali Sands. Continue Advair and Singulair as above. 4. Weight loss. This may be secondary to malignancy as above. A GI consultation has been obtained with Dr López. Await EGD/colonoscopy Blake Collier MD Dec 22, 2018 13:59
--- NOTE | 2018-12-22 18:14 | General Progress Note ---
Assessment/Plan Assessment/Plan: Assessment - Nausea - Weight loss - Anemia - declines EGD / colon - accepts risk of CA - Lung nodules, r/o CA - COPD Recommendations - pulmonary f/u - can refer to me as outpatient if he changes his mind Subjective Allergies: Coded Allergies: IODINE (Unverified Allergy, Unknown, 09/07/15) Uncoded Allergies: SEAFOOD (Allergy, Unknown, 12/17/18) SHELLFISH (Allergy, Unknown, 12/17/18) Subjective Feels OK tolerating PO declined GI w/u accepts risk of GI CA Objective Last 24 Hour Vital Signs Date Time Temp Pulse Resp B/P (MAP) Pulse Ox O2 Delivery O2 Flow Rate FiO2 12/22/18 12:00 97.5 67 18 109/68 (82) 98 12/22/18 09:00 Room Air 12/22/18 08:35 71 18 98 Room Air 21 12/22/18 08:00 98.0 68 18 131/78 (95) 98 12/22/18 04:00 97.5 63 20 109/51 (70) 100 12/22/18 00:00 97.3 68 19 113/67 (82) 97 12/21/18 20:40 Room Air 12/21/18 20:29 69 18 97 Room Air 21 12/21/18 20:00 97.9 70 19 116/63 (80) 99 Intake and Output 12/21/18 12/22/18 19:00 07:00 Intake Total 1825 ml 2675 ml Output Total 950 ml Balance 1825 ml 1725 ml Intake Oral 1000 ml 1000 ml IV Total 825 ml 1675 ml Output Urine Total 950 ml # Voids 6 6 # Bowel Movements 1 1 Laboratory Tests 12/22/18 06:52: White Blood Count 5.6, Red Blood Count 4.30L, Hemoglobin 13.3L, Hematocrit 40.1L , Mean Corpuscular Volume 93, Mean Corpuscular Hemoglobin 31.0, Mean Corpuscular Hemoglobin Concent 33.2, Red Cell Distribution Width 13.6, Platelet Count 261, Mean Platelet Volume 7.1, Neutrophils (%) (Auto) 50.0, Lymphocytes (% ) (Auto) 33.9, Monocytes (%) (Auto) 8.2, Eosinophils (%) (Auto) 6.5H, Basophils (%) (Auto) 1.4, Sodium Level 137, Potassium Level 4.6, Chloride Level 103, Carbon Dioxide Level 28, Anion Gap 6, Blood Urea Nitrogen 23H, Creatinine 1.1, Estimat Glomerular Filtration Rate , Glucose Level 86, Calcium Level 9.5 Height (Feet): 5 Height (Inches): 7.00 Weight (Pounds): 114 Objective WDWN NCAT supple CTA RRR Abd soft NT ND no edema James López MD Dec 22, 2018 18:14
--- NOTE | 2018-12-24 09:23 | Discharge Summary ---
Discharge Summary Discharge Summary _ DATE OF ADMISSION: 12/17/2018 DATE OF DISCHARGE: 12/22/2018 DISCHARGED BY: Dr. Silva REASON FOR ADMISSION: 78 years old male with past medical history of asthma/COPD, presented to emergency room for evaluation. Patient reported feeling weak for the last several months . Patient reported losing a lot of weight. Patient went to his primary care provider , who referred him to emergency room for further evaluation. Patient felt dizzy and weak. No cough. No fever or chills. Patient reported getting flu vaccine this year. Upon evaluation vital signs were stable. Laboratory work-up revealed no leukocytosis, hemoglobin 12, hematocrit 36.8 with MCV of 94. Platelet count 250. Stable electrolytes. BUN 18, creatinine 1.2. Glucose 76. Troponin negative. EKG revealed normal sinus rhythm no acute ischemic changes. Albumin 3.8. Stable LFT and lipase. Chest x-ray revealed no acute cardiopulmonary pathology. CT scan of the chest, abdomen and pelvis revealed multiply lung nodules bilaterally. Scattered pulmonary nodules new since CT scan of 2018 , including spiculated left upper lobe nodule, highly suspicious for neoplasm either metastatic from unknown primary or primary pulmonary neoplasm or metastatic pulmonary from right upper lobe lesion. Thick-walled left inguinal hernia fluid collection , seen on prior exam. Diverticulosis without evidence of diverticulitis. Patient subsequently admitted for further management. CONSULTANTS: pulmonary Dr. Sands cardiothoracic surgeon Dr. Griffin GI specialist Dr. López HOSPITAL COURSE: Patient admitted and started on the IV fluids. [employer] Operator and GI specialist closely followed. Interventional radiology was unable to do a biopsy of the lung nodule due to small size. Cardiothoracic surgeon was contacted to evaluate the nodules and advise on further management. He recommended repeat CT scan in 3 months to follow the interval growth of these lung nodules;alternatively the patient may be a candidate for surgical biopsy of the left upper lobe nodule measuring 7 mm. At that time patient decided to consider his options and declined surgical intervention. GI specialist followed. Initially EGD and colonoscopy were planned , but patient declined both EGD and colonoscopy , accepting the risk of possible cancer. Hemoglobin and hematocrit were closely monitored with goal to keep hemoglobin above 7 . Prior to discharge hemoglobin 13.3, hematocrit 40.1. CEA elevated 9.6. Anemia work-up revealed stable iron. Stool for occult blood was positive. DVT prophylaxis provided. Symptomatic treatment provided. Patient was working with physical therapist. Fall precaution maintained. Bedside swallow evaluation revealed no adverse signs or symptoms of aspiration. However patient was edentulous and needed soft easy to chew solid diet. Per acute dialysis registered nurse, patient was at high risk for malnutrition. Protein supplements implemented in plan of care as per acute dialysis registered nurse recommendation. As mentioned above, patient declined any procedure at this time, including EGD/ colonoscopy and surgical biopsy. Patient was subsequently discharged home. Repeat CT scan or PET CT as outpatient. FINAL DIAGNOSES: Bilateral lung nodules, highly suspicious for malignancy Weight loss Protein calorie malnutrition Anemia COPD History of smoking Near syncope/vertigo/generalized weakness DISCHARGE MEDICATIONS: See Medication Reconciliation list. DISCHARGE INSTRUCTIONS: Patient was discharged home . Follow up with primary care provider in one week. Patient will need to repeat CT scan or PET CT, and if he change his mind : surgical biopsy of lung nodule and GI procedures. Daisy Martini NP Dec 24, 2018 09:23
== END 2018-12-22 15:30 | disposition home or self-care (01) | DRG 181 ==
LOC: EMR 13:50 → 4E 14:29 → EDBEDREQ 15:58 → 4E 12-19 15:55
DX: C34.92 Malignant neoplasm of unspecified part of left bronchus or lung (principal); Z68.1 Body mass index [BMI] 19.9 or less, adult; J44.1 Chronic obstructive pulmonary disease with (acute) exacerbation; E46 Unspecified protein-calorie malnutrition; C34.91 Malignant neoplasm of unspecified part of right bronchus or lung; R53.1 Weakness; D64.9 Anemia, unspecified; Z87.891 Personal history of nicotine dependence; Z88.8 Allergy status to other drugs, medicaments and biological substances; R62.7 Adult failure to thrive; R11.0 Nausea; R91.8 Other nonspecific abnormal finding of lung field; R63.4 Abnormal weight loss; R97.0 Elevated carcinoembryonic antigen [CEA]; R42 Dizziness and giddiness; R55 Syncope and collapse
CPT/HCPCS: 36415; 71045; 71250; 74176; 80048; 80053; 80061; 81003; 82270; 82378; 82550; 82607; 82746; 83540; 83550; 83615; 83690; 84443; 84484; 85007; 85025; 85044; 85060; 85610; 85651; 85730; 86710; 93005; 94664; 96360; 97802; 99285

== ENCOUNTER 2019-06-07 08:46 | Emergency (ER) | payer MEDICARE, BC ==
[~2019-06-07] VITALS: Ht 170.2 cm; Wt 59.0 kg
--- NOTE | 2019-06-07 08:29 | Emergency Room Report ---
History of Present Illness General Chief Complaint: Dyspnea/Respdistress Present Illness HPI Patient is a 79-year-old male presents after increased difficulty with breathing. Patient a prior issue of COPD. Had previous history of smoking. Patient has had previous improvement with steroids. Denies any fever. Denies any sick contacts at home. Reports having no chest discomfort or tightness. Denies any leg pain or swelling. Allergies: Coded Allergies: IODINE (Unverified Allergy, Unknown, 09/07/15) Uncoded Allergies: SEAFOOD (Allergy, Unknown, 12/17/18) SHELLFISH (Allergy, Unknown, 12/17/18) COVID-19 Screening Contact w/high risk pt: No Recent Travel to affected area: No Experienced COVID-19 symptoms?: Yes COVID-19 symptoms experienced: Shortness of Breath, Cough Patient History Reviewed Nursing Documentation: PMH: Agreed; PSxH: Agreed Review of Systems All Other Systems: negative except mentioned in HPI Physical Exam Vital Signs Date Time Temp Pulse Resp B/P (MAP) Pulse Ox O2 Delivery O2 Flow Rate FiO2 06/07/19 08:24 98.4 113 20 151/77 (101) 97 Room Air Sp02 EP Interpretation: reviewed, normal General Appearance: normal inspection, alert, GCS 15, Chronically Ill Head: atraumatic ENT: normal ENT inspection, hearing grossly normal, normal voice Neck: normal inspection, full range of motion, supple, no bony tend Respiratory: normal inspection, lungs clear, normal breath sounds, no respiratory distress, no retraction, no wheezing Cardiovascular #1: regular rate, rhythm, no edema Gastrointestinal: normal inspection, normal bowel sounds, non tender, soft, no guarding, no hernia Genitourinary: no CVA tenderness Musculoskeletal: normal inspection, back normal, normal range of motion Neurologic: alert, responsive, speech normal, normal inspection Psychiatric: normal inspection, judgement/insight normal, mood/affect normal Medical Decision Making Diagnostic Impression: Primary Impression: COPD (chronic obstructive pulmonary disease) ER Course Patient presented for shortness of breath. Differential included but was not limited to anemia, pneumonia, pneumothorax, myocardial infarction, pericardial effusion, congestive heart failure, acidosis. patient has a benign exam and does not appear to require any imaging or laboratory testing at this time. EKG interpreted by me showed sinus tachycardia with a rate of [address] or T wave changes. Chest x-ray 1 view interpreted by me showed normal cardiac size without any definite infiltrate with nodules noted in the right upper lobe. Patient apparently had previous x-rays which showed some nodular lesions. Patient was advised to follow-up with his primary care physician for recheck.Patient does not have any definite exposure to coronavirus and is afebrile. Patient had normal oxygen saturation as well as improved respiratory difficulty after medications. Patient be discharged home he was advised return for increased shortness of breath or any other concerns. Patient was advised to self quarantine at home. He was given discharge instructions for possible coronavirus. Last Vital Signs Date Time Temp Pulse Resp B/P (MAP) Pulse Ox O2 Delivery O2 Flow Rate FiO2 06/07/19 08:24 98.4 113 20 151/77 (101) 97 Room Air Status: improved Disposition: HOME, SELF-CARE Condition: Stable Scripts Loratadine (CLARITIN) 10 Mg Tab.rapdis 10 MG ORAL DAILY, #30 TAB Prov: Arvind Camejo MD 06/07/19 Albuterol Sulfate (VENTOLIN HFA) 18 Gm Hfa.aer.ad 2 PUFFS INH EVERY 6 HOURS, #18 GM 0 Refills Prov: Arvind Camejo MD 06/07/19 Prednisone* (PREDNISONE*) 20 Mg Tablet 40 MG ORAL DAILY, #10 TAB Prov: Arvind Camejo MD 06/07/19 Arvind Camejo MD Jun 07, 2019 08:29
[~2019-06-07 08:46] MED LIST changes: +Albuterol ud Inhalation HHN ONE; +Albuterol/Ipratropium 3ml neb HHN ONE
--- NOTE | 2019-06-07 08:46 | NUR ---
ED Nurse Note: Pt walked in due to SOB and back tightness since last week. Also c/o ocassional coughing with white phlegm last night. Hx of asthma. AAO x4 ambulatory with no respiratory distress up[on ED arrival.
[2019-06-07 08:47] VITALS: BP 151/77
[2019-06-07] MEDS ORDERED: Albuterol/Ipratropium 3ml neb ONE (09:14)
--- NOTE | 2019-06-07 09:30 | NUR ---
ED Nurse Note: RT in the tent for breathing treatment.
[2019-06-07] MEDS ORDERED: VENTOLIN HFA18 GM INH (10:18)
[2019-06-07] MEDS ORDERED: CLARITIN10 M1 ORAL (10:18)
[2019-06-07] MEDS ORDERED: PREDNISONE20 MG ORAL (10:18)
[2019-06-07 10:24] VITALS: BP 146/78
--- NOTE | 2019-06-07 10:24 | NUR ---
ER DISCHARGE NOTE: Patient is cleared to be discharged per ERMD, pt is aox4, on room air, with stable vital signs. pt was given dc and prescription instructions, pt was able to verbalize understanding, pt id band removed. pt is able to ambulate with steady gait. pt took all belongings.
--- NOTE | 2019-06-07 10:31 | Diagnostic Imaging Report ---
EXAM: XR Chest, 1 View CLINICAL HISTORY: SOB TECHNIQUE: Frontal view of the chest. COMPARISON: 12/07/18. FINDINGS: Lungs: Pulmonary hyperexpansion. No clear consolidation. Densities projecting over the bases are favored to reflect rib end/chondral cartilage calcification. Mild scarring. Pleural space: Mild apical pleural thickening. No pneumothorax. Heart: Unremarkable. No cardiomegaly. Mediastinum: Calcified aorta. Bones/joints: Unremarkable. IMPRESSION: Pulmonary hyperexpansion suggesting obstructive pulmonary disease. No clear consolidation.
== END 2019-06-07 10:24 | disposition home or self-care (01) ==
LOC: EDBD 08:46 → EMR 09:05
DX: J44.9 Chronic obstructive pulmonary disease, unspecified (principal); Z87.891 Personal history of nicotine dependence; Z91.041 Radiographic dye allergy status; Z91.013 Allergy to seafood; R06.02 Shortness of breath; R05 Cough
CPT/HCPCS: 71045; 93005; 99284; J7512; J7620